=== PATIENT | female | born 1950 | race Caucasian/White ===

== ENCOUNTER → 2016-12-02 | Outpatient (CLI) | payer MEDICARE ==
[~2016-12-02] MED LIST: REGADENOSON 0.4 MG/5 ML SYRINGE IV ONE
--- NOTE | 2016-12-02 12:33 | EST ---
DATE OF SERVICE: 12/02/2016 AGE: 66Y SEX: F HT: 5'4" WT: 157 lbs. Protocol Yossi: Other: Lexiscan Cardiolite Stage: Dur. of Exercise: *Heart Rate Blood Pressure *Rest: 81 Rest: 148/78 * *Max. Achieved: 125 Maximum BP: 171/90 85% PMHR: 100% PMHR: *METS: INDICATION OF THE STUDY: Chest pain. MEDICATIONS: STRESS DATA: Pretesting physical examination showed A heart rate of 81, pressure is 148/78 mmHg. Baseline EKG showed sinus mechanism. A 0.4 mg of Lexiscan was given to the patient over 15 seconds per protocol. Max heart rate was 125 beats per minute and maximum blood pressure was 171/90 mmHg. Clinically, the patient did not have any symptoms. The EKG showed some ST changes. CONCLUSION: 1. Nondiagnostic electrocardiogram stress testing in response to Lexiscan. 2. Please follow up on the Cardiolite portion on a separate report from the radiology department.
--- NOTE | 2016-12-02 12:39 | NM ---
EXAMINATION TYPE: NM stress lexiscan cardiolite DATE OF EXAM: 12/02/2016 11:50 AM COMPARISON: NONE HISTORY: Chest pain TECHNIQUE: After the intravenous administration of 11.0 mCi Tc 99m Sestamibi - Cardiolite resting SP ECT images acquired 45 minutes post injection. The patient received 0.4mg Lexiscan, 26.6 mCi Tc 99m Sestamibi - Stress images obtained [address] injection FINDINGS: Review of stress and rest SPECT images demonstrates no distinct perfusion abnormality. Gated analysi s shows normal wall motion with an estimated left ventricular ejection fraction of 51 %. There is some dyskinesia of the covarrubias near the cardiac apex. IMPRESSION: 1. No stress-induced ischemic changes. 2. There is some dyskinesia at the cardiac apex. Greater along the inferior and septal covarrubias.
== END | disposition home or self-care (01) ==
LOC: RADNMMAIN 09:12
PROVIDERS: ATTEND Family Medicine
DX: I25.10 Atherosclerotic heart disease of native coronary artery without angina pectoris (principal); G24.9 Dystonia, unspecified
CPT/HCPCS: 93017; 78452; A9500; J2785

== ENCOUNTER → 2016-12-20 | Outpatient (CLI) | payer MEDICARE ==
--- NOTE | 2016-12-21 11:26 | ECHOF ---
Referral Reason:I10 HTN R07.89 CP MEASUREMENTS -------- HEIGHT: 162.6 cm WEIGHT: 71.2 kg BP: IVSd: 1.2 cm (0.6 - 1.1) LVIDd: 3.4 cm (3.9 - 5.3) LVPWd: 1.1 cm (0.6 - 1.1) IVSs: 1.3 cm LVIDs: 2.1 cm LVPWs: 1.4 cm Ao Diam: 3.1 cm (2.0 - 3.7) AV Cusp: 1.9 cm (1.5 - 2.6) LA Diam: 3.5 cm (2.7 - 3.8) MV EXCURSION: 15.792 mm (> 18.000) MV EF SLOPE: 88 mm/s (70 - 150) EPSS: 0.2 cm MV E Luis: 0.40 m/s MV DecT: 357 ms MV A Luis: 0.56 m/s MV E/A Ratio: 0.72 RAP: 5.00 mmHg RVSP: 17.61 mmHg FINDINGS -------- Sinus rhythm. This was a technically good study. Left ventricular wall thickness is normal. Overall left ventricular systolic function is low-normal with, an EF between 50 - 55 %. There is paradoxical/dysynergic septal motion consistent with post-operative status. The right ventricle is normal in size and function. The left atrium is normal in size. The right atrium is normal in size. Aortic valve is trileaflet and is mildly thickened. There is no evidence of aortic regurgitation. The mitral valve leaflets are mildly thickened. Mild mitral annular calcification present. Mild mitral regurgitation is present. Mild tricuspid regurgitation present. The right ventricular systolic pressure, as measured by Doppler, is 17.61mmHg. Trace/mild (physiologic) pulmonic regurgitation. The aortic root size is normal. The pericardium is normal. CONCLUSIONS -------- 1. Sinus rhythm. 2. There is no evidence of aortic regurgitation. 3. The mitral valve leaflets are mildly thickened. 4. Mild mitral annular calcification present. 5. Mild mitral regurgitation is present. 6. Mild tricuspid regurgitation present. 7. The right ventricular systolic pressure, as measured by Doppler, is 17.61mmHg. 8. Trace/mild (physiologic) pulmonic regurgitation. 9. The aortic root size is normal. 10. The pericardium is normal. 11. This was a technically good study. 12. Left ventricular wall thickness is normal. 13. Overall left ventricular systolic function is low-normal with, an EF between 50 - 55 %. 14. There is paradoxical/dysynergic septal motion consistent with post-operative status. 15. The right ventricle is normal in size and function. 16. The left atrium is normal in size. 17. The right atrium is normal in size. 18. Aortic valve is trileaflet and is mildly thickened. SHIRT TRIMMER: Geovanna Chaparro RDCS
== END | disposition home or self-care (01) ==
LOC: RADECHMAIN 14:20
PROVIDERS: ATTEND Family Medicine
DX: I08.3 Combined rheumatic disorders of mitral, aortic and tricuspid valves (principal); I37.1 Nonrheumatic pulmonary valve insufficiency
CPT/HCPCS: 93306

== ENCOUNTER 2017-03-10 15:56 | Emergency (ER) | payer MEDICARE ==
[2017-03-10 16:17] VITALS: BP 138/64; PULSE 74; RESP 18; TEMP 98.5
--- NOTE | 2017-03-10 16:57 | ED ---
Lower Extremity Injury HPI - General Chief Complaint: Extremity Injury, Lower Stated Complaint: Foot Pain Time Seen by Provider: 03/10/17 16:44 Source: patient, RN notes reviewed Mode of arrival: ambulatory Limitations: no limitations - History of Present Illness Initial Comments: 66-year-old female presents to the emergency department with a chief complaint of right foot pain. Patient states that she fell on her foot a few weeks ago. Patient states that it started to hurt over the last few days but she was up and active more so she was concerned. Patient states along the base of the first second and third digits. Patient states she has been able to ambulate. Patient denied any other injury or history of pain. Patient denies any redness or swelling. Patient states she was concerned due to the pain so she thought that she should be evaluated.Patient denies any recent fever, chills, shortness of breath, chest pain, back pain, abdominal pain, nausea vomiting, numbness or tingling, dysuria or hematuria, constipation or diarrhea, headaches or visual changes, or any other current symptoms. - Related Data Home Medications Medication Instructions Recorded Confirmed Furosemide [Lasix] 10 mg PO DAILY 04/02/16 05/29/16 Metoprolol Tartrate [Lopressor] 12.5 mg PO BID 04/02/16 05/29/16 Potassium Chloride ER [K-Dur 10] 10 meq PO BID 04/02/16 05/29/16 Pravastatin Sodium [Pravachol] 10 mg PO DAILY 04/02/16 05/29/16 Previous Rx's Medication Instructions Recorded Dexamethasone 0.75 mg PO BID #6 tab 04/02/16 Allergies Allergy/AdvReac Type Severity Reaction Status Date / Time gabapentin [From Neurontin] AdvReac Hallucinati Verified 03/10/17 16:17 ons Review of Systems ROS Statement: Those systems with pertinent positive or pertinent negative responses have been documented in the HPI. ROS Other: All systems not noted in ROS Statement are negative. Past Medical History Past Medical History: Coronary Artery Disease (CAD), Hyperlipidemia, Hypertension History of Any Multi-Drug Resistant Organisms: None Reported Past Surgical History: Cholecystectomy, Coronary Bypass/CABG Additional Past Surgical History / Comment(s): rhizotomy, head surgeries osteomas Past Psychological History: No Psychological Hx Reported Smoking Status: Former smoker Past Alcohol Use History: Occasional Past Drug Use History: None Reported General Exam - General Exam Comments Initial Comments: General: The patient is awake and alert, in no distress, and does not appear acutely ill. Neck: The neck is supple, there is no tenderness. Cardiovascular: There is a regular rate and rhythm. No murmur, rub or gallop is appreciated. Respiratory: Lungs are clear to auscultation, respirations are non-labored, breath sounds are equal. No wheezes, stridor, rales, or rhonchi. Musculoskeletal: Sensation intact with pupils. This is a regular strain. Full range of motion of right knee right ankle. Patient does have some tenderness with patient on the involved right foot into the base of first Ekman third digit. There is no deformity redness swelling. Neurological: CN II-XII intact, There are no obvious motor or sensory deficits. Coordination appears grossly intact. Speech is normal. Skin: Skin is warm and dry and no rashes or lesions are noted. Psychiatric: Normal mood and affect. Limitations: no limitations Course Vital Signs 03/10/17 16:15 Temperature 98.5 F Pulse Rate 74 Respiratory 18 Rate Blood Pressure 138/64 O2 Sat by Pulse 100 Oximetry Medical Decision Making - Medical Decision Making 66-year-old female presents for right foot pain after injury. At this time x- rays are negative. This time we discussed patient was with right foot contusion. We discussed continue to ice Motrin Tylenol. We discussed up with Dr. candace castillo. Patient states she understood all questions have been answered. She will be discharged home. - Radiology Data Radiology results: report reviewed, image reviewed Disposition Clinical Impression: Contusion of right foot Disposition: HOME SELF-CARE Condition: Stable Instructions: Foot Contusion (ED) Additional Instructions: Please use medication as discussed. Please follow up with family doctor if symptoms have not improved over the next two days. Please return to the emergency room if your symptoms increase or worsen or for any other concerns. Referrals: Yann Sena Jr, DO [Primary Care Provider] - 1-2 days Time of Disposition: 17:22
--- NOTE | 2017-03-10 17:19 | XR ---
EXAMINATION TYPE: XR foot complete RT DATE OF EXAM: 03/10/2017 5:08 PM COMPARISON: NONE HISTORY: Pain fall 2 months prior TECHNIQUE: Three-view right foot FINDINGS: No acute fractures are evident. An old fracture of the distal diaphyseal proximal phalanx f irst digit may be present. Hallux valgus deformity is present. Soft tissues appear normal. Joint spac es are preserved IMPRESSION: 1. No acute osseous abnormality.
== END 2017-03-10 17:30 | disposition home or self-care (01) ==
LOC: EC 15:56
DX: S90.31XA Contusion of right foot, initial encounter (principal); I25.10 Atherosclerotic heart disease of native coronary artery without angina pectoris; E78.5 Hyperlipidemia, unspecified; I10 Essential (primary) hypertension; Z95.1 Presence of aortocoronary bypass graft; Z88.8 Allergy status to other drugs, medicaments and biological substances; Z79.899 Other long term (current) drug therapy; Z87.891 Personal history of nicotine dependence; W19.XXXA Unspecified fall, initial encounter
CPT/HCPCS: 99283

== ENCOUNTER → 2017-11-09 | Outpatient (CLI) | payer MEDICARE ==
[2017-11-09 15:23] LABS: Blood Urea Nitrogen 12 mg/dL (7-17)
--- NOTE | 2017-11-09 17:25 | CT ---
EXAMINATION TYPE: CT abdomen pelvis w con DATE OF EXAM: 11/09/2017 COMPARISON: 10/14/2013 HISTORY: Left upper quadrant pain. CT DLP: 1418 mGycm Automated exposure control for dose reduction was used. TECHNIQUE: Helical acquisition of images was performed from the lung bases through the pelvis. CONTRAST: Performed with Oral Contrast and with IV Contrast, patient injected with 100 mL of Omnipaque 300. FINDINGS: The lung bases are clear of consolidation. There is no pleural effusion. Liver shows no focal defect. Spleen and pancreas appear normal. Bile ducts are not dilated. Gallbladder is absent. There is no adrenal mass. Kidneys show satisfactory contrast opacification. There is no hydronephrosi s. There is some enlargement of the right renal pelvis and right ureter. There is no renal atrophy. T here is no retroperitoneal adenopathy. There is no ascites. There is some nonspecific wall thickening involving the ascending colon. There is some fat density. This could relate to some colonic lipomato sis and is probably unchanged compared to old exam.. There are no dilated loops. Bladder distends smo othly. There is no sign of a pelvic mass. There are spondylotic changes in the lumbar spine. Abdomina l aorta is atheromatous. IMPRESSION: THERE IS MILD RIGHT-SIDED HYDRONEPHROSIS AND PROXIMAL HYDROURETER BUT NO OBSTRUCTING CALCULUS SEEN. N O ATROPHY. THIS IS SLIGHTLY WORSE THAN OLD CT SCAN. ATHEROSCLEROTIC VASCULAR DISEASE. NO SIGN OF ACUT E ABDOMEN AND PELVIS. I do not see a cause for left upper quadrant pain.
== END | disposition home or self-care (01) ==
LOC: RADCTMAIN 14:49
PROVIDERS: ATTEND Family Medicine
DX: N13.30 Unspecified hydronephrosis (principal); Z88.8 Allergy status to other drugs, medicaments and biological substances; Z88.5 Allergy status to narcotic agent
CPT/HCPCS: 82565; 84520; 74177; 36415; Q9967

== ENCOUNTER 2017-12-27 10:09 | Day surgery (SDC) | payer MEDICARE ==
[2017-12-25 15:21] VITALS: BMI 25.3
[~2017-12-27 10:09] MED LIST changes: +LACTATED RINGERS 1,000 ML IV SCH; -REGADENOSON 0.4 MG/5 ML SYRINGE IV ONE
[2017-12-27 11:28] VITALS: RESP 18; TEMP 97.1
[2017-12-27] MEDS ORDERED: LIDOCAINE 1% 20 ML VIAL (10MG/ML) FOR IV START INTRADERMA ONE (11:36)
[2017-12-27] MEDS ORDERED: LIDOCAINE 1% INJ 10MG/ML (20 ML MDV) ONE (11:44)
[2017-12-27] MEDS ORDERED: PROPOFOL 10 MG/ML 20 ML VIAL IV ONE (11:44)
--- NOTE | 2017-12-27 12:04 | P.PCN ---
Date of Procedure: 12/27/17 Procedure(s) Performed: Brief history: Patient is a pleasant 67-year-old white female, scheduled for an elective upper endoscopy as well as colonoscopy as a part of evaluation of nausea, vomiting and abdominal pain associated with constipation since July 2017. Recent CT of the abdomen and pelvis was unremarkable. Procedure performed: Esophagogastroduodenoscopy with biopsy Colonoscopy with snare polypectomy Preoperative diagnosis: Chronic intermittent nausea/vomiting Abdominal pain and change in bowel Anesthesia: MAC Procedure: After informed consent was obtained from the patient was brought into the endoscopy unit and IV sedation was administered by anesthesia under continuous monitoring. Initially upper endoscopy was done. The Olympus GF 160 video endoscope was inserted inserted into the mouth and esophagus intubated without any difficulty and was gradually advanced into the stomach and duodenum and carefully examined. The bulb and second part of the duodenum appeared normal. Biopsies were done from the duodenum to rule out celiac disease. The scope was then withdrawn into the stomach adequately insufflated with air and upon careful examination the antrum had mild gastritis and biopsies were done from this area. The body, cardia and fundus appeared normal. The scope was then withdrawn into the esophagus. The GE junction was located at 40 cm to the incisors. It appeared regular with no erythema erosions or ulcerations. Rest of the esophagus appeared normal. Patient tolerated the procedure well. At this time the patient continued to remain sedation. Initial digital rectal examination was normal. Olympus CF 160 video colonoscope was then inserted into the rectum and gradually advanced to the cecum without any difficulty. Careful examination was performed as the scope was gradually being withdrawn. The prep was excellent. The cecum, appeared normal. In the ascending colon there was a 7-8 mm sessile polyp removed by snare polypectomy. The rest of the ascending colon, transverse colon, descending colon, sigmoid colon and rectum appeared normal. Retroflexion was performed in the rectum andsmall internal hemorrhoidsre noted. Patient tolerated the procedure well. Impression: 1. Upper endoscopy revealed mild antral gastritis but no evidence of esophagitis or peptic ulcer disease 2. Colonoscopy revealed 7-8 mm ascending colon polyp status post snare polypectomy and small internal hemorrhoids Recommendations: Findings of this examination were discussed with the patient as well as her family. She was advised to follow with the biopsy results. If the biopsy of the polyp shows an adenoma, she can have a repeat colonoscopy in 5 years. She' ll be seen in office in 2 weeks.
[2017-12-27 12:25] VITALS: BP 146/74; PULSE 63
== END 2017-12-27 12:52 | disposition home or self-care (01) ==
LOC: ORWHC2ENDO 10:09
PROVIDERS: ATTEND Internal Medicine Gastroenterology
DX: K29.50 Unspecified chronic gastritis without bleeding (principal); D12.2 Benign neoplasm of ascending colon; K64.8 Other hemorrhoids; I10 Essential (primary) hypertension; E78.5 Hyperlipidemia, unspecified; J44.9 Chronic obstructive pulmonary disease, unspecified; Z79.1 Long term (current) use of non-steroidal anti-inflammatories (NSAID); Z79.891 Long term (current) use of opiate analgesic; Z79.899 Other long term (current) drug therapy; Z88.8 Allergy status to other drugs, medicaments and biological substances
CPT/HCPCS: 88305; 45385; 43239; J2001; J2704

== ENCOUNTER → 2018-01-05 | Outpatient (CLI) | payer MEDICARE ==
[2018-01-05 09:57] LABS: Basophils % (A) 1 %; Eosinophils # (A) 0.1 k/uL (0-0.7); Eosinophils % (A) 1 %; HCT 39.9 % (34.0-46.0); HGB 12.8 gm/dL (11.4-16.0); Lymphocytes % (A) 41 %; MCH 27.9 pg (25.0-35.0); MCHC 31.9 g/dL (31.0-37.0); MCV 87.3 fL (80.0-100.0); Mean Platelet Volume 7.7; Monocytes # (A) 0.3 k/uL (0-1.0); Monocytes % (A) 7 %; Neutrophils # (A) 2.4 k/uL (1.3-7.7); Neutrophils % (A) 48 %; Platelet Count 163 k/uL (150-450); RBC 4.58 m/uL (3.80-5.40); RDW 12.9 % (11.5-15.5)
[2018-01-05 10:15] LABS: ALT 26 U/L (9-52); AST 24 U/L (14-36); Albumin 4.1 g/dL (3.5-5.0); Alkaline Phosphatase 83 U/L (38-126); Anion Gap 7 mmol/L; Blood Urea Nitrogen 13 mg/dL (7-17); Calcium 9.7 mg/dL (8.4-10.2); Carbon Dioxide 29 mmol/L (22-30); Chloride 104 mmol/L (98-107); Glucose 97 mg/dL (74-99); Potassium 4.2 mmol/L (3.5-5.1); Sodium 140 mmol/L (137-145); Total Bilirubin 0.7 mg/dL (0.2-1.3)
== END | disposition home or self-care (01) ==
LOC: LABWHC1 09:41
PROVIDERS: ATTEND Family Medicine
DX: G47.09 Other insomnia (principal); R10.32 Left lower quadrant pain; Z79.899 Other long term (current) drug therapy
CPT/HCPCS: 36415; 80053; 84443; 85025

== ENCOUNTER 2018-05-12 13:11 | Emergency (ER) | payer MEDICARE ==
[2018-05-12 13:41] VITALS: BP 134/74; PULSE 78; RESP 18; TEMP 97.7
--- NOTE | 2018-05-12 14:22 | ED ---
General Adult HPI - General Chief complaint: Extremity Injury, Upper Stated complaint: post vaccination pain Time Seen by Provider: 05/12/18 14:05 Source: patient, RN notes reviewed Mode of arrival: ambulatory Limitations: no limitations - History of Present Illness Initial comments: This is a 67-year-old female who presents to the emergency department with chief complaint of post vaccination pain. She states that on May 08 she received the pneumococcal booster in her left upper arm. She states that 2 hours later became very firm, red and swollen. She states that since that time the swelling has gone down but the redness has spread and that the left upper arm is painful. She denies any fevers or chills, chest pain or shortness of breath, abdominal pain, nausea or vomiting, numbness or tingling. - Related Data Home Medications Medication Instructions Recorded Confirmed Furosemide [Lasix] 10 mg PO DAILY 04/02/16 12/27/17 Metoprolol Tartrate [Lopressor] 12.5 mg PO BID 04/02/16 12/27/17 Potassium Chloride ER [K-Dur 10] 10 meq PO DAILY 04/02/16 12/27/17 Albuterol Sulfate [Proair Hfa] 1 - 2 puff INHALATION Q6H PRN 03/10/17 12/27/17 Amitriptyline HCl [Elavil] 25 mg PO HS PRN 03/10/17 12/27/17 Atorvastatin [Lipitor] 20 mg PO HS 12/25/17 12/27/17 Ibuprofen [Motrin] 800 mg PO Q8H PRN 12/25/17 12/27/17 traMADol HCL [Ultram] 50 mg PO Q6HR PRN 12/25/17 12/27/17 Previous Rx's Medication Instructions Recorded Cephalexin [Keflex] 500 mg PO Q12HR #10 cap 05/12/18 Allergies Allergy/AdvReac Type Severity Reaction Status Date / Time gabapentin [From Neurontin] AdvReac Hallucinati Verified 05/12/18 13:40 ons Review of Systems ROS Statement: Those systems with pertinent positive or pertinent negative responses have been documented in the HPI. ROS Other: All systems not noted in ROS Statement are negative. Past Medical History Past Medical History: Coronary Artery Disease (CAD), GERD/Reflux, Hyperlipidemia , Hypertension, Osteoarthritis (OA) Additional Past Medical History / Comment(s): MIGRAINE HEADACHE,GLAUCOMA History of Any Multi-Drug Resistant Organisms: None Reported Past Surgical History: Cholecystectomy, Coronary Bypass/CABG, Heart Catheterization Additional Past Surgical History / Comment(s): FRONTAL SINUS SURGERY-TUMOR OF THE BONE X3 Past Anesthesia/Blood Transfusion Reactions: No Reported Reaction Additional Past Anesthesia/Blood Transfusion Reaction / Comment(s): "WOKE UP DURING SURGERY" Past Psychological History: No Psychological Hx Reported Smoking Status: Former smoker Past Alcohol Use History: None Reported Past Drug Use History: None Reported - Past Family History Mother Family Medical History: No Reported History Father Family Medical History: Cancer General Exam - General Exam Comments Initial Comments: General: Awake and alert, well-developed; in no apparent distress. HEENT: Head atraumatic, normocephalic. Pupils are equal, round and reactive to light. Extraocular movements intact. Oropharynx moist without erythema or exudate. Neck: Supple. Normal ROM. Cardiovascular: Regular rate and rhythm. No murmurs, rubs or gallops. Chest symmetrical. Pulses are 2+ equal and palpable bilaterally. Respiratory: Lungs clear to auscultation bilaterally. No wheezes, rales or rhonchi. Normal respiratory effort with no use of accessory muscles. Musculoskeletal: Normal range of motion of bilateral upper and lower extremities. Patient is ambulating normally. Sensation is intact. Skin: Mild area of erythema measuring approximately 6 cm in diameter left upper arm. This area is tender on palpation. No palpable cords. Neurological: Alert and oriented x3. CN II-XII grossly intact. Speech is fluent and answers are appropriate. No focal neuro deficits. Psychiatric: Normal mood and affect. No overt signs of depression or anxiety noted. Limitations: no limitations Course Vital Signs 05/12/18 13:39 Temperature 97.7 F Pulse Rate 78 Respiratory 18 Rate Blood Pressure 134/74 O2 Sat by Pulse 99 Oximetry Medical Decision Making - Medical Decision Making This is a 67-year-old female who presents to the emergency department with chief complaint of postvaccination pain. Patient reports pain, swelling and redness to the left upper arm after receiving a pneumococcal booster on May 08. On physical examination, there is mild erythema and tenderness to the left upper arm. Unlikely cellulitis, however patient will be started on Keflex. Vital signs are stable and she is in no acute distress. Recommend Motrin. Patient will be discharged home at this time. She is in agreement with plan and voices understanding. All questions were answered. Disposition Clinical Impression: Post-vaccination reaction Disposition: HOME SELF-CARE Condition: Good Instructions: Pneumococcal Vaccine for Adults (ED) Additional Instructions: Please take medications as prescribed. Please follow up with primary care provider within 1-2 days. Return to emergency department if symptoms should worsen or any concerns arise. Prescriptions: Cephalexin [Keflex] 500 mg PO Q12HR #10 cap Is patient prescribed a controlled substance at d/c from ED?: No Referrals: Yann Sena Jr, [Primary Care Provider] - 1-2 days Time of Disposition: 14:18
== END 2018-05-12 14:35 | disposition home or self-care (01) ==
LOC: EC 13:11
DX: T88.1XXA Other complications following immunization, not elsewhere classified, initial encounter (principal); I25.810 Atherosclerosis of coronary artery bypass graft(s) without angina pectoris; I10 Essential (primary) hypertension; E78.5 Hyperlipidemia, unspecified; Z88.8 Allergy status to other drugs, medicaments and biological substances; Z87.891 Personal history of nicotine dependence; Z95.1 Presence of aortocoronary bypass graft; Z79.899 Other long term (current) drug therapy
CPT/HCPCS: 99283

== ENCOUNTER → 2018-07-18 | Outpatient (CLI) | payer MEDICARE ==
[2018-07-18 12:02] LABS: T4, Free (Free Thyroxine) 0.96 ng/dL (0.78-2.19)
== END | disposition home or self-care (01) ==
LOC: LABWHC1 09:39
PROVIDERS: ATTEND Internal Medicine Cardiovascular Disease
DX: E78.5 Hyperlipidemia, unspecified (principal); R63.4 Abnormal weight loss
CPT/HCPCS: 36415; 80061; 84439; 84443; 84450; 84460

== ENCOUNTER → 2019-05-07 | Outpatient (CLI) | payer MEDICARE ==
[2019-05-07 18:34] LABS: ALT 32 U/L (8-44); AST 29 U/L (13-35); African American GFR (CKD) 75.6 (60.0-200.0); Alkaline Phosphatase 84 U/L (41-126); BUN/Creat Ratio 18.89 Ratio (12.00-20.00); Bilirubin, Conjugated <0.20 mg/dL (0.20-0.40); Calcium 9.8 mg/dL (8.7-10.3); Carbon Dioxide 27.8 mmol/L (21.6-31.8); Chloride 106 mmol/L (96-109); Cholesterol 242 mg/dL (0-200); Globulin 2.2 g/dL (1.6-3.3); Glucose 101 mg/dL (70-110); LDL Cholesterol,Calculated 146.6 mg/dL (0.0-131.0); Potassium 4.5 mmol/L (3.5-5.5); Sodium 142 mmol/L (135-145); Total Bilirubin 0.4 mg/dL (0.2-1.2); Total Protein 6.6 g/dL (6.2-8.2)
== END | disposition home or self-care (01) ==
LOC: LABWHC1 12:29
PROVIDERS: ATTEND Internal Medicine Cardiovascular Disease
DX: I10 Essential (primary) hypertension (principal); I25.10 Atherosclerotic heart disease of native coronary artery without angina pectoris; E78.5 Hyperlipidemia, unspecified
CPT/HCPCS: 36415; 80048; 80061; 80076

== ENCOUNTER 2020-01-01 15:03 | Emergency (ER) | payer MEDICARE ==
[2020-01-01] MEDS ORDERED: SODIUM CHLORIDE 0.9% 1,000 ML IV STA (16:21)
[2020-01-01 16:51] LABS: Basophils # (A) 0.1 k/uL (0-0.2); Basophils % (A) 1 %; Eosinophils # (A) 0.1 k/uL (0-0.7); Eosinophils % (A) 1 %; HCT 43.7 % (34.0-46.0); Lymphocytes # (A) 3.1 k/uL (1.0-4.8); Lymphocytes % (A) 44 %; MCH 28.3 pg (25.0-35.0); MCV 88.7 fL (80.0-100.0); Mean Platelet Volume 7.6; Monocytes # (A) 0.5 k/uL (0-1.0); Monocytes % (A) 7 %; Neutrophils # (A) 3.1 k/uL (1.3-7.7); Neutrophils % (A) 45 %; Platelet Count 161 k/uL (150-450); RBC 4.93 m/uL (3.80-5.40); RDW 12.6 % (11.5-15.5)
[2020-01-01 16:53] LABS: Albumin 4.6 g/dL (3.5-5.0); Calcium 9.7 mg/dL (8.4-10.2); Potassium 4.1 mmol/L (3.5-5.1); Total Bilirubin 0.4 mg/dL (0.2-1.3); Total Protein 7.6 g/dL (6.3-8.2)
--- NOTE | 2020-01-01 16:55 | ED ---
Extremity Problem HPI - General Source: patient Mode of arrival: ambulatory Limitations: no limitations <Morteza Merritt - Last Filed: 01/01/20 20:24> <Tabatha Tao - Last Filed: 01/06/20 15:45> - General Chief complaint: Extremity Problem,Nontraumatic Stated complaint: joint inflammation Time Seen by Provider: 01/01/20 16:12 - History of Present Illness Initial comments: Patient is 69-year-old female presenting to the emergency department with a chief complaint of joint pain. States her symptoms began about 2 weeks when she developed polyarthralgias in her wrists, elbows, shoulders, knees and ankles. S tates that she feels somewhat stiff in the morning and the pain gradually goes away throughout the day but he reappears at night. States she took ibuprofen with some improvement symptoms. Denies any swelling of the joints, difference in temperature or skin discoloration. Denies any nodules on the hands or fingers. Also reports some shortness of breath but for over one month. Does report some dyspnea on exertion but reports any chest pain. States she had a quadruple bypass 15 years ago that her joint pain is related to the bypass. States that she "wanted to get checked out". She does live in [facility] and is scheduled with primary care but is not able to get in for another 5 days. Denies any tick bites. Denies fevers or chills. Denies history of rheumatoid arthritis. Denies any skin discoloration around the joints. (Morteza Merritt) - Related Data Home Medications Medication Instructions Recorded Confirmed Furosemide [Lasix] 10 mg PO DAILY 04/02/16 12/27/17 Metoprolol Tartrate [Lopressor] 12.5 mg PO BID 04/02/16 12/27/17 Potassium Chloride ER [K-Dur 10] 10 meq PO DAILY 04/02/16 12/27/17 Albuterol Sulfate [Proair Hfa] 1 - 2 puff INHALATION Q6H PRN 03/10/17 12/27/17 Amitriptyline HCl [Elavil] 25 mg PO HS PRN 03/10/17 12/27/17 Atorvastatin [Lipitor] 20 mg PO HS 12/25/17 12/27/17 Ibuprofen [Motrin] 800 mg PO Q8H PRN 12/25/17 12/27/17 traMADol HCL [Ultram] 50 mg PO Q6HR PRN 12/25/17 12/27/17 Previous Rx's Medication Instructions Recorded Cephalexin [Keflex] 500 mg PO Q12HR #10 cap 05/12/18 Allergies Allergy/AdvReac Type Severity Reaction Status Date / Time gabapentin [From Neurontin] AdvReac Hallucinati Verified 05/12/18 13:40 ons Review of Systems ROS Other: All systems not noted in ROS Statement are negative. <Morteza Merritt - Last Filed: 01/01/20 20:24> ROS Other: All systems not noted in ROS Statement are negative. <Tabatha Tao - Last Filed: 01/06/20 15:45> ROS Statement: Those systems with pertinent positive or pertinent negative responses have been documented in the HPI. Past Medical History Past Medical History: Coronary Artery Disease (CAD), GERD/Reflux, Hyperlipidemia, Hypertension, Osteoarthritis (OA) Additional Past Medical History / Comment(s): MIGRAINE HEADACHE,GLAUCOMA History of Any Multi-Drug Resistant Organisms: None Reported Past Surgical History: Cholecystectomy, Coronary Bypass/CABG, Heart Catheterization Additional Past Surgical History / Comment(s): FRONTAL SINUS SURGERY-TUMOR OF THE BONE X3 Past Anesthesia/Blood Transfusion Reactions: No Reported Reaction Additional Past Anesthesia/Blood Transfusion Reaction / Comment(s): "WOKE UP DURING SURGERY" Past Psychological History: No Psychological Hx Reported Smoking Status: Former smoker Past Alcohol Use History: None Reported Past Drug Use History: None Reported - Past Family History Mother Family Medical History: No Reported History Father Family Medical History: Cancer <Morteza Merritt - Last Filed: 01/01/20 20:24> General Exam Limitations: no limitations General appearance: alert, in no apparent distress Head exam: Present: atraumatic, normocephalic, normal inspection Eye exam: Present: normal appearance, PERRL, EOMI Pupils: Present: normal accommodation ENT exam: Present: normal exam Neck exam: Present: normal inspection, full ROM. Absent: lymphadenopathy Respiratory exam: Present: normal lung sounds bilaterally. Absent: respiratory distress, wheezes, rales Cardiovascular Exam: Present: regular rate, normal rhythm, normal heart sounds Extremities exam: Present: normal inspection, full ROM, normal capillary refill, other (+2 ulnar and radial pulses bilaterally. No swelling in any of the finger joints.). Absent: tenderness, pedal edema, joint swelling, calf tenderness (Negative Homans bilaterally.) Back exam: Present: normal inspection, full ROM Neurological exam: Present: alert, oriented X3 Psychiatric exam: Present: normal affect, normal mood Skin exam: Present: warm, dry, intact, normal color <Morteza Merritt - Last Filed: 01/01/20 20:24> Course Vital Signs 01/01/20 01/01/20 15:29 20:50 Temperature 98.3 F 97.8 F Pulse Rate 71 60 Respiratory 19 15 Rate Blood Pressure 129/81 141/70 O2 Sat by Pulse 97 97 Oximetry Medical Decision Making - Lab Data Result diagrams: 01/01/20 16:35 01/01/20 16:35 <Morteza Merritt - Last Filed: 01/01/20 20:24> - Lab Data Result diagrams: 01/01/20 16:35 01/01/20 16:35 <Tabatha Tao - Last Filed: 01/06/20 15:45> - Medical Decision Making Patient is 69-year-old female presenting to emergency Department with chief complaint of joint pain and shortness of breath. Patient appears to have polyarthralgias in the wrist, shoulders, elbow, knees and ankles. She does report morning stiffness that appears to improve throughout the day. The symptoms suggest possible rheumatoid arthritis. Patient is also complaining of shortness of breath for over a month. With dyspnea on exertion. No chest pain cough hemoptysis one sided leg swelling. Initial troponin negative. EKG shows sinus bradycardia with no signs of a PE. Patient does have elevated d-dimer. CT angios of chest shows no signs of a pulmonary embolism.CBC CMP are unremarkable. Patient is scheduled to see her primary care within a week. Return parameters were thoroughly discussed with patient was understanding and agreeable. Case discussed with physician. (Morteza Merritt) I was available for consultation in the emergency department. The history and physical exam were done by the midlevel provider. I was consulted for this patients care. I reviewed the case with the midlevel provider and based on their presentation of the patient, I agree with the assessment, medical decision making and plan of care as documented. Chart was dictated using [employer] dictation software. Attempts were made to correct any dictation errors however some typographical errors may persist. (Tabatha Tao) - Lab Data Lab Results 01/01/20 01/01/20 01/01/20 Range/Units 16:35 16:35 16:35 WBC 7.0 (3.8-10.6) k/uL RBC 4.93 (3.80-5.40) m/uL Hgb 14.0 (11.4-16.0) gm/dL Hct 43.7 (34.0-46.0) % MCV 88.7 (80.0-100.0) fL MCH 28.3 (25.0-35.0) pg MCHC 32.0 (31.0-37.0) g/dL RDW 12.6 (11.5-15.5) % Plt Count 161 (150-450) k/uL Neutrophils % 45 % Lymphocytes % 44 % Monocytes % 7 % Eosinophils % 1 % Basophils % 1 % Neutrophils # 3.1 (1.3-7.7) k/uL Lymphocytes # 3.1 (1.0-4.8) k/uL Monocytes # 0.5 (0-1.0) k/uL Eosinophils # 0.1 (0-0.7) k/uL Basophils # 0.1 (0-0.2) k/uL PT 10.4 (9.0-12.0) sec INR 1.0 (<1.2) APTT 23.1 (22.0-30.0) sec D-Dimer (<0.60) mg/L FEU Sodium 140 (137-145) mmol/L Potassium 4.1 (3.5-5.1) mmol/L Chloride 105 (98-107) mmol/L Carbon Dioxide 30 (22-30) mmol/L Anion Gap 5 mmol/L BUN 19 H (7-17) mg/dL Creatinine 0.80 (0.52-1.04) mg/dL Est GFR (CKD-EPI)AfAm 87 (>60 ml/min/1.73 sqM) Est GFR (CKD-EPI)NonAf 75 (>60 ml/min/1.73 sqM) Glucose 79 (74-99) mg/dL Calcium 9.7 (8.4-10.2) mg/dL Total Bilirubin 0.4 (0.2-1.3) mg/dL AST 38 H (14-36) U/L ALT 29 (4-34) U/L Alkaline Phosphatase 75 (38-126) U/L Troponin I (0.000-0.034) ng/mL Total Protein 7.6 (6.3-8.2) g/dL Albumin 4.6 (3.5-5.0) g/dL 01/01/20 01/01/20 Range/Units 16:35 16:35 WBC (3.8-10.6) k/uL RBC (3.80-5.40) m/uL Hgb (11.4-16.0) gm/dL Hct (34.0-46.0) % MCV (80.0-100.0) fL MCH (25.0-35.0) pg MCHC (31.0-37.0) g/dL RDW (11.5-15.5) % Plt Count (150-450) k/uL Neutrophils % % Lymphocytes % % Monocytes % % Eosinophils % % Basophils % % Neutrophils # (1.3-7.7) k/uL Lymphocytes # (1.0-4.8) k/uL Monocytes # (0-1.0) k/uL Eosinophils # (0-0.7) k/uL Basophils # (0-0.2) k/uL PT (9.0-12.0) sec INR (<1.2) APTT (22.0-30.0) sec D-Dimer 0.98 H (<0.60) mg/L FEU Sodium (137-145) mmol/L Potassium (3.5-5.1) mmol/L Chloride (98-107) mmol/L Carbon Dioxide (22-30) mmol/L Anion Gap mmol/L BUN (7-17) mg/dL Creatinine (0.52-1.04) mg/dL Est GFR (CKD-EPI)AfAm (>60 ml/min/1.73 sqM) Est GFR (CKD-EPI)NonAf (>60 ml/min/1.73 sqM) Glucose (74-99) mg/dL Calcium (8.4-10.2) mg/dL Total Bilirubin (0.2-1.3) mg/dL AST (14-36) U/L ALT (4-34) U/L Alkaline Phosphatase (38-126) U/L Troponin I <0.012 (0.000-0.034) ng/mL Total Protein (6.3-8.2) g/dL Albumin (3.5-5.0) g/dL - EKG Data EKG Comments: Sinus bradycardia, no ST changes. Which revealed a 52, TX 156, QRS 82, QTC 403. (Morteza Merritt) Disposition Is patient prescribed a controlled substance at d/c from ED?: No Time of Disposition: 20:23 <Morteza Merritt - Last Filed: 01/01/20 20:24> <Tabatha Tao - Last Filed: 01/06/20 15:45> Clinical Impression: Polyarthralgia, Shortness of breath Disposition: HOME SELF-CARE Condition: Stable Instructions (If sedation given, give patient instructions): Rheumatoid Arthr itis (ED) Additional Instructions: Alternate between Tylenol and Motrin for pain control. Continue to see her primary care. Return to emergency department if symptoms worsen. Referrals: Yann Sena Jr, [Primary Care Provider] - 1-2 days
[2020-01-01 16:56] LABS: Partial Thromboplastin Time 23.1 sec (22.0-30.0); Prothrombin Time 10.4 sec (9.0-12.0)
--- NOTE | 2020-01-01 17:02 | XR ---
EXAMINATION TYPE: XR chest 2V DATE OF EXAM: 01/01/2020 COMPARISON: Prior chest x-ray 10/24/2012 HISTORY: Difficulty breathing, shortness of breath TECHNIQUE: Frontal and lateral views of the chest are obtained. FINDINGS: Patient is post median sternotomy. Patient is rotated. There is no focal air space opacity, pleural effusion, or pneumothorax seen. The cardiac silhouette size is within normal limits. The osseous structures are intact. IMPRESSION: No acute cardiopulmonary process.
--- NOTE | 2020-01-01 19:31 | CT ---
EXAMINATION TYPE: CT chest angio for PE DATE OF EXAM: 01/01/2020 COMPARISON: HISTORY: difficulty breathing for [address] DLP: 304 mGycm Automated exposure control for dose reduction was used. CONTRAST: CT Chest for pulmonary embolism performed with with IV Contrast, patient injected with 100 mL of Isov ue 370. Three-dimensional reconstructions performed on an alternate workstation. FINDINGS: LUNGS: The lungs are grossly clear, there is no concerning parenchymal mass or nodule identified. T here is no pleural effusion or pneumothorax seen. The tracheobronchial tree is patent. MEDIASTINUM: There is satisfactory enhancement of the pulmonary artery and its branches, there is no CT evidence for pulmonary embolism. There are no greater than 1 cm hilar or mediastinal lymph nodes. No pericardial effusion is seen. Patient is post median sternotomy. There are dense coronary joshua ry calcifications. Small hiatal hernia is present. Reflux of contrast material into the central hepat ic veins and inferior vena cava, correlate for possible right heart failure. AORTA: No additional significant abnormality is seen. OTHER: Stomach shows wall thickening which could be due to lack of distention, difficult to exclude a mucosal lesion. Patient is post cholecystectomy. IMPRESSION: No evident pulmonary embolus. Additional findings above.
[2020-01-01 20:52] VITALS: BP 141/70; PULSE 60; RESP 15; TEMP 97.8
== END 2020-01-01 20:52 | disposition home or self-care (01) ==
LOC: EC 15:03
DX: M25.532 Pain in left wrist (principal); M25.531 Pain in right wrist; M25.522 Pain in left elbow; M25.521 Pain in right elbow; M25.512 Pain in left shoulder; M25.511 Pain in right shoulder; M25.561 Pain in right knee; M25.562 Pain in left knee; M25.572 Pain in left ankle and joints of left foot; M25.571 Pain in right ankle and joints of right foot; R06.02 Shortness of breath; R06.09 Other forms of dyspnea; R79.1 Abnormal coagulation profile; I25.10 Atherosclerotic heart disease of native coronary artery without angina pectoris; I10 Essential (primary) hypertension; E78.5 Hyperlipidemia, unspecified; M19.90 Unspecified osteoarthritis, unspecified site; Z79.899 Other long term (current) drug therapy; Z88.8 Allergy status to other drugs, medicaments and biological substances; Z95.1 Presence of aortocoronary bypass graft
CPT/HCPCS: 36415; 93005; 85379; 80053; 84484; 85025; 85610; 85730; 71046; 71275; 99284; 96360; 96361 ×3; Q9967

== ENCOUNTER → 2020-01-10 | Outpatient (CLI) | payer MEDICARE ==
[2020-01-10 23:09] LABS: C Reactive Protein <0.4 mg/dL (0.0-0.8); Rheumatoid Factor, Qnt 7 IU/mL (0-15)
== END | disposition home or self-care (01) ==
LOC: LABWHC1 16:25
PROVIDERS: ATTEND Family Medicine
DX: M25.50 Pain in unspecified joint (principal)
CPT/HCPCS: 36415; 85652; 86140; 86431

== ENCOUNTER 2020-02-15 14:05 | Emergency (ER) | payer MEDICARE ==
[2020-02-15 14:12] VITALS: RESP 18
--- NOTE | 2020-02-15 15:52 | ED ---
Eye Problem HPI - General Chief complaint: Eye Problems Stated complaint: RT eye issues Time Seen by Provider: 02/15/20 14:25 Source: patient Mode of arrival: ambulatory Limitations: no limitations - History of Present Illness Initial comments: Patient is 69-year-old female presenting to emergency Department with complaints of floaters in her right eye 2 days. Patient states she noticed small floaters in her right eye yesterday as well as some mild click flashes of light in her peripheral vision on the right side. Patient states her symptoms resolved. Then this morning the floaters have returned. She denies having any eye pain just some very mild pressure on the outside. She does have history of cataract surgery. She did try prednisone drops at home which did help with her symptom. She denies any trauma to the eye, lightheadedness, dizziness, blurry vision. She has no other complaints at this time. Upon arrival to the ER her vital stable. - Related Data Home Medications Medication Instructions Recorded Confirmed Furosemide [Lasix] 10 mg PO DAILY 04/02/16 12/27/17 Metoprolol Tartrate [Lopressor] 12.5 mg PO BID 04/02/16 12/27/17 Potassium Chloride ER [K-Dur 10] 10 meq PO DAILY 04/02/16 12/27/17 Albuterol Sulfate [Proair Hfa] 1 - 2 puff INHALATION Q6H PRN 03/10/17 12/27/17 Amitriptyline HCl [Elavil] 25 mg PO HS PRN 03/10/17 12/27/17 Atorvastatin [Lipitor] 20 mg PO HS 12/25/17 12/27/17 Ibuprofen [Motrin] 800 mg PO Q8H PRN 12/25/17 12/27/17 traMADol HCL [Ultram] 50 mg PO Q6HR PRN 12/25/17 12/27/17 Previous Rx's Medication Instructions Recorded Cephalexin [Keflex] 500 mg PO Q12HR #10 cap 05/12/18 Allergies Allergy/AdvReac Type Severity Reaction Status Date / Time gabapentin [From Neurontin] AdvReac Hallucinati Verified 02/15/20 14:12 ons Review of Systems ROS Statement: Those systems with pertinent positive or pertinent negative responses have been documented in the HPI. ROS Other: All systems not noted in ROS Statement are negative. Past Medical History Past Medical History: Coronary Artery Disease (CAD), COPD, GERD/Reflux, Hyperlipidemia, Hypertension, Osteoarthritis (OA) Additional Past Medical History / Comment(s): MIGRAINE HEADACHE,GLAUCOMA History of Any Multi-Drug Resistant Organisms: None Reported Past Surgical History: Cholecystectomy, Coronary Bypass/CABG, Heart Catheterization Additional Past Surgical History / Comment(s): FRONTAL SINUS SURGERY-TUMOR OF THE BONE X3 Past Anesthesia/Blood Transfusion Reactions: No Reported Reaction Additional Past Anesthesia/Blood Transfusion Reaction / Comment(s): "WOKE UP D URING SURGERY" Past Psychological History: No Psychological Hx Reported Smoking Status: Former smoker Past Alcohol Use History: None Reported Past Drug Use History: None Reported - Past Family History Mother Family Medical History: No Reported History Father Family Medical History: Cancer General Exam - General Exam Comments Initial Comments: GENERAL: Well-appearing, well-nourished and in no acute distress. HEAD: Atraumatic, normocephalic. EYES: Pupils equal round and reactive to light, extraocular movements intact, sclera anicteric, conjunctiva are normal. Bilateral eye pressure of 18. ENT: TMs normal, nares patent, oropharynx clear without exudates. Moist mucous membranes. NECK: Normal range of motion, supple without lymphadenopathy or JVD. LUNGS: Breath sounds clear to auscultation bilaterally and equal. No wheezes rales or rhonchi. HEART: Regular rate and rhythm without murmurs, rubs or gallops. ABDOMEN: Soft, nontender, normoactive bowel sounds. No guarding, no rebound. No masses appreciated. : Deferred EXTREMITIES: Normal range of motion, no pitting or edema. No clubbing or cyanosis. NEUROLOGICAL: Cranial nerves II through XII grossly intact. Normal speech, normal gait. PSYCH: Normal mood, normal affect. SKIN: Warm, Dry, normal turgor, no rashes or lesions noted. Limitations: no limitations Course Vital Signs 02/15/20 02/15/20 14:08 16:01 Temperature 98.1 F 98.0 F Pulse Rate 72 70 Respiratory 18 18 Rate Blood Pressure 140/84 133/78 O2 Sat by Pulse 97 98 Oximetry Medical Decision Making - Medical Decision Making Patient is 69-year-old female presenting with floaters of her right thigh 2 days. Patient has history of cataract surgery. No trauma or injuries to her eye. Patient's exam today is unremarkable, visual acuity is normal, bilateral eye pressure is normal. I did discuss case with on-call measurement superintendent Dr. Isaac who will see the patient first thing Monday morning at 10:30am. He is okay with patient being discharge. Strict return parameters were discussed with the patient she verbalized understanding. Disposition Clinical Impression: Floaters in visual field Disposition: HOME SELF-CARE Condition: Stable Instructions (If sedation given, give patient instructions): Visual Floaters (ED) Additional Instructions: Please return to the Emergency Department if symptoms worsen or any other concerns. Follow-up with measurement superintendent, Dr. Isaac as discussed on Monday at 10:30 AM. Please wear mask into the office. Is patient prescribed a controlled substance at d/c from ED?: No Referrals: Yann Sena Jr, DO [Primary Care Provider] - 1-2 days Bj Isaac MD [STAFF PHYSICIAN] - 1-2 days
[2020-02-15 16:02] VITALS: BP 133/78; PULSE 70; TEMP 98
== END 2020-02-15 16:02 | disposition home or self-care (01) ==
LOC: EC 14:05
DX: H43.391 Other vitreous opacities, right eye (principal); I25.10 Atherosclerotic heart disease of native coronary artery without angina pectoris; J44.9 Chronic obstructive pulmonary disease, unspecified; I10 Essential (primary) hypertension; E78.5 Hyperlipidemia, unspecified; Z87.891 Personal history of nicotine dependence; Z98.49 Cataract extraction status, unspecified eye; Z95.1 Presence of aortocoronary bypass graft; Z79.899 Other long term (current) drug therapy; Z88.8 Allergy status to other drugs, medicaments and biological substances
CPT/HCPCS: 99283

== ENCOUNTER → 2020-07-21 | Outpatient (CLI) | payer MEDICARE ==
[2020-07-21 16:17] LABS: HCT 42.9 % (34.0-46.0); HGB 13.5 gm/dL (11.4-16.0); MCH 27.6 pg (25.0-35.0); MCHC 31.4 g/dL (31.0-37.0); Mean Platelet Volume 7.6; Platelet Count 198 k/uL (150-450); RBC 4.88 m/uL (3.80-5.40); RDW 12.8 % (11.5-15.5); WBC 7.7 k/uL (3.8-10.6)
[2020-07-21 16:25] LABS: African American GFR (CKD) >90 (>60 ml/min/1.73 sqM); Anion Gap 6 mmol/L; Blood Urea Nitrogen 8 mg/dL (7-17); Carbon Dioxide 29 mmol/L (22-30); Chloride 104 mmol/L (98-107); Magnesium 2.1 mg/dL (1.6-2.3); Non-African American GFR(CKD) 82 (>60 ml/min/1.73 sqM); Potassium 3.9 mmol/L (3.5-5.1); Sodium 139 mmol/L (137-145)
== END | disposition home or self-care (01) ==
LOC: LABWHC1 15:34
PROVIDERS: ATTEND Internal Medicine Cardiovascular Disease
DX: Z01.818 Encounter for other preprocedural examination (principal); I25.10 Atherosclerotic heart disease of native coronary artery without angina pectoris
CPT/HCPCS: 36415; 80051; 82565; 83735; 84520; 85027

== ENCOUNTER 2020-07-30 07:53 | Day surgery (SDC) | payer MEDICARE ==
[~2020-07-30 07:53] MED LIST changes: +ALPRAZolam 0.25 MG TAB PO PRN; +ALPRAZolam 0.5 MG TAB PO PRN; +ASPIRIN 325 MG TAB PO STA; +ATORVASTATIN 80 MG TAB PO STA; -LACTATED RINGERS 1,000 ML IV SCH; +NITROGLYCERIN SL TABS 0.4 MG TAB SUBLINGUAL PRN; +SODIUM CHLORIDE 0.9% 1,000 ML in EMPTY BAG 1 BAG IV ONE
[2020-07-30] MEDS ORDERED: fentaNYL (PF) 50 MCG/ML 2 ML AMP ONE (08:52)
[2020-07-30] MEDS: MIDAZOLAM 2 MG/2 ML VIAL IV ONE ×2 (08:57→09:24)
[2020-07-30] MEDS ORDERED: fentaNYL (PF) 50 MCG/ML 2 ML AMP IV ONE (08:57)
[2020-07-30] MEDS ORDERED: LIDOCAINE 1% INJ 10MG/ML (20 ML MDV) ONE (08:58)
[2020-07-30] MEDS ORDERED: LIDOCAINE 1% INJ 10MG/ML (20 ML MDV) SQ ONE (08:59)
[2020-07-30] MEDS ORDERED: BIVALIRUDIN BOLUS 250 MG/50 ML IV ONE (09:31)
[2020-07-30] MEDS ORDERED: BIVALIRUDIN 250 MG in SODIUM CHLORIDE 0.9% 50 ML IV ONE (09:33)
[2020-07-30] MEDS ORDERED: CLOPIDOGREL 75 MG TAB PO ONE (09:33)
[2020-07-30] MEDS ORDERED: CLOPIDOGREL 75 MG TAB ONE (09:34)
--- NOTE | 2020-07-30 09:36 | P.CARDCATH ---
Date of Procedure: 07/30/20 Preoperative Diagnosis: Exertional chest pain and shortness of breath. History of coronary bypass surgery Postoperative Diagnosis: Critical lesion involving the diagonal branch beyond the insertion. Intermediate disease involving the right patent FOOTE graft to the LAD and vein graft. Circumflex Procedure(s) Performed: Left heart catheterization without left ventriculography Description of Procedure: HISTORY: This is a 70-year-old female with history of ischemic heart disease with previous bypass surgery with the FOOTE graft to the LAD, vein graft to the diagonal, 2 OM branch and also right coronary artery done about 15 years ago. Patient recently came with complaints of recurrent chest pain and shortness of breath with exertion. Patient had a nuclear stress test which was not diagnostic for ischemia. However, patient continued to have symptoms and wanted to proceed with cardiac cath for definitive diagnosis. CONSENT:I have discussed the risks, benefits and alternative therapies for the above-mentioned procedure and for both sedation/analgesia as well as necessary blood product administration, if indicated, as they pertain to this patient. The patient has indicated understanding and acceptance of the risks and procedures discussed. PROCEDURE: Patient was brought to the lab in a fasting state. Patient was given some IV sedation. The right groin is infiltrated with lidocaine and right femoral artery was entered using Seldinger technique. A 6-Albanian catheter was left in place and selective coronary arteriography was performed. Patient tolerated the procedure well. Patient went on to have stent placement of the diagonal branch through the graft. Conscious Sedation: Versed 2mg Fentanyl 50 g Duration 22minutes HEMODYNAMICS: The aortic pressure is 140/70. Left ventricular end-diastolic pressure is about 5-10. There was no gradient across the aortic valve SELECTIVE CORONARY ARTERIOGRAPHY: LEFT MAIN:. Near totally occluded with scant antegrade flow THE LEFT ANTERIOR DESCENDING CORONARY ARTERY: Totally occluded in the proximal portion THE LEFT CIRCUMFLEX AND IS CORONARY ARTERY:. Totally occluded THE RIGHT CORONARY ARTERY:. This is a moderate caliber vessel with diffuse disease with about 40-50% stenosis in midportion. THE FOOTE GRAFT TO THE LAD: This is patent at the proximal and distal anastomosis and also the body. The LAD beyond the insertion site is free of any significant occlusive disease but small in caliber. THE VEIN GRAFT TO THE DIAGONAL: This is patent at the proximal and distal anastomosis. Beyond the distal anastomosis, there is about 90% stenosis involving the diagonal. The vein graft to the OM BRANCH: This is patent throughout its length and proximal and distal anastomosis. The OM branches free of occlusive disease, beyond the insertion. LEFT VENTRICULOGRAPHY: Not performed FINAL IMPRESSION:. Critical lesion involving the diagonal beyond the insertion site of the graft. The FOOTE graft to the LAD and vein graft to the circumflex are patent. The right coronary artery has intermittent disease in the midportion. The left main is totally occluded PLAN: Proceed with stent placement of the diagonal which is being done by Dr. Ceja PROGNOSIS: Guarded
[2020-07-30] MEDS ORDERED: NITROGLYCERIN 1000MCG/10ML SYRINGE INTRACORON ONE (09:37)
[2020-07-30] MEDS ORDERED: IOPAMIDOL-370 125ML BTL INJ ONE (09:37)
[2020-07-30] MEDS ORDERED: ATROPINE SULFATE 0.1 MG/ML 10ML SYRINGE IV PRN (09:41)
[2020-07-30] MEDS ORDERED: traMADol 50 MG TAB PO PRN (09:41)
[2020-07-30] MEDS ORDERED: IBUPROFEN 800 MG TAB PO PRN (09:41)
[2020-07-30] MEDS ORDERED: MAG HYDROX/AL HYDROX/SIMETH 30 ML CUP PO PRN (09:41)
[2020-07-30] MEDS ORDERED: RX INFO: IV CONTRAST WAS GIVEN 1 EACH MISC MISCELLANE PRN (09:41)
[2020-07-30] MEDS ORDERED: NITROGLYCERIN SL TABS 0.4 MG TAB SUBLINGUAL PRN (09:41)
[2020-07-30] MEDS ORDERED: ZOLPIDEM 5 MG TAB PO PRN (09:41)
[2020-07-30] MEDS ORDERED: SODIUM CHLORIDE 0.9% 1,000 ML IV SCH (09:45)
[2020-07-30] MEDS ORDERED: HYDROmorphone 0.5 MG/0.5 ML SYRINGE IVP PRN (10:02)
--- NOTE | 2020-07-30 10:33 | PTCA ---
PERCUTANEOUSTRANS CORORONARY ANGIOGRAPHY DATE OF SERVICE: 07/30/2020 PERFORMING PHYSICIAN: Dave Cooper MD. PROCEDURE PERFORMED: Successful stenting of the distal anastomosis of SVG to the diagonal branch, using 2.0 x 8 mm [place] drug-eluting stent with an excellent angiographic results and reduction of stenosis from 80% to 0%. INDICATION: This is a 70-year-old female patient who sees Dr. Torres in the office on a regular basis, who was experiencing symptoms of chest pain with exertion concerning for angina. Because of that. Because of that, a heart catheterization was advised. The heart catheterization revealed severe disease involving the SVG to the diagonal. because of that, PCI was advised. APPROACH: Right common femoral artery. COMPLICATION: None. LEVEL OF SEDATION: Moderate with sedation length of 11 minutes. PROCEDURE DESCRIPTION: 1. Please refer to the diagnostic heart catheterization that was performed by Dr. Torres. Anticoagulation was initiated using Angiomax. Subsequently, I did engage the SVG using an LCD guide. I did wire it using a run-through wire. After that, I performed direct stenting of the lesion using 2.0 x 8 mm [place] drug-eluting stent where the stent was positioned under fluoroscopy guidance and deployed under its nominal pressure. The following angiogram showed good angiographic results and the procedure was completed without any complication. POSTPROCEDURE MANAGEMENT: 1. Dual anti-platelet therapy. 2. Risk factor modifications. 3. Follow up with the patient. MMODL / IJN: [id number] /
[2020-07-30 13:09] VITALS: RESP 18
[2020-07-30 13:54] VITALS: BMI 27.1
[2020-07-30] MEDS: ONDANSETRON 4 MG TAB PO PRN (19:14)
[2020-07-30] MEDS ORDERED: ATORVASTATIN 80 MG TAB PO SCH (21:00)
[2020-07-30] MEDS: METOPROLOL TARTRATE 12.5 MG TAB PO SCH (22:08)
[2020-07-31 01:35] VITALS: TEMP 97.8
[2020-07-31 05:29] VITALS: PULSE 66
[2020-07-31 07:56] LABS: Basophils % (A) 1 %; Eosinophils # (A) 0.1 k/uL (0-0.7); Eosinophils % (A) 2 %; HCT 39.1 % (34.0-46.0); HGB 12.7 gm/dL (11.4-16.0); Lymphocytes # (A) 2.2 k/uL (1.0-4.8); Lymphocytes % (A) 46 %; MCH 29.5 pg (25.0-35.0); MCHC 32.6 g/dL (31.0-37.0); MCV 90.3 fL (80.0-100.0); Mean Platelet Volume 7.4; Monocytes # (A) 0.3 k/uL (0-1.0); Monocytes % (A) 7 %; Neutrophils % (A) 43 %; Platelet Count 137 k/uL (150-450); RBC 4.33 m/uL (3.80-5.40); RDW 12.7 % (11.5-15.5); WBC 4.7 k/uL (3.8-10.6)
--- NOTE | 2020-07-31 08:02 | P.DS ---
Providers Date of admission: 07/30/2020 Attending physician: Yamilet Torres Consults: 07/30/20 09:41 Consult Physician Routine Consulting Provider: [facility] Consult Reason/Comments: Post Interventional patient Do you want consulting provider notified?: Already Contacted Primary care physician: Yann Sena - Discharge Diagnosis(es) (1) CAD (coronary artery disease), [place] coronary artery Current Visit: Yes Status: Acute (2) S/P coronary artery stent placement Current Visit: Yes Status: Acute (3) History of coronary artery bypass graft Current Visit: Yes Status: Acute (4) Hypercholesterolemia Current Visit: Yes Status: Acute Hospital Course: This is 70-year-old female with history of ischemic heart disease and previous bypass surgery was evaluated by cardiac catheterization because of ongoing exertional shortness of breath and tightness. She was found to have a critical lesion in the diagonal branch beyond the insertion site. Patient has sex we'll stent placement yesterday. Overnight patient had a mild nausea which was relieved with show from. No complaints of any chest pain or shortness of breath. Patient is tolerating activity. The groin is soft without any hematoma. Lungs are clear. Heart is regular. Patient is being discharged home. Continue home medications. She'll be on Plavix 75 mg and also atorvastatin 80 mg. Activity as tolerated. Follow-up in the office in one week Plan - Discharge Summary Discharge Rx Participant: No New Discharge Prescriptions: New Clopidogrel [Plavix] 75 mg PO DAILY #90 tab Atorvastatin [Lipitor] 80 mg PO HS #30 tab Continue Potassium Chloride ER [K-Dur 10] 10 meq PO DAILY Metoprolol Tartrate [Lopressor] 12.5 mg PO BID Furosemide [Lasix] 10 mg PO DAILY Albuterol Sulfate [Proair Hfa] 1 - 2 puff INHALATION Q6H PRN PRN Reason: Shortness Of Breath traMADol HCL [Ultram] 50 mg PO Q6HR PRN PRN Reason: Pain Ibuprofen [Motrin] 800 mg PO Q8H PRN PRN Reason: Pain Discharge Medication List Furosemide [Lasix] 10 mg PO DAILY 04/02/16 [History] Metoprolol Tartrate [Lopressor] 12.5 mg PO BID 04/02/16 [History] Potassium Chloride ER [K-Dur 10] 10 meq PO DAILY 04/02/16 [History] Albuterol Sulfate [Proair Hfa] 1 - 2 puff INHALATION Q6H PRN 03/10/17 [History] Ibuprofen [Motrin] 800 mg PO Q8H PRN 12/25/17 [History] traMADol HCL [Ultram] 50 mg PO Q6HR PRN 12/25/17 [History] Atorvastatin [Lipitor] 80 mg PO HS #30 tab 07/31/20 [Rx] Clopidogrel [Plavix] 75 mg PO DAILY #90 tab 07/31/20 [Rx] Follow up Appointment(s)/Referral(s): Yamilet Torres MD [STAFF PHYSICIAN] - 1 Week Patient Instructions/Handouts: Left Heart Catheterization (DC), Procedural Sedation (ED)
[2020-07-31 08:07] LABS: African American GFR (CKD) >90 (>60 ml/min/1.73 sqM); Anion Gap 2 mmol/L; Blood Urea Nitrogen 10 mg/dL (7-17); Carbon Dioxide 28 mmol/L (22-30); Chloride 108 mmol/L (98-107); Glucose 96 mg/dL (74-99); Non-African American GFR(CKD) 81 (>60 ml/min/1.73 sqM); Potassium 4.3 mmol/L (3.5-5.1); Sodium 138 mmol/L (137-145)
[2020-07-31] MEDS: METOPROLOL TARTRATE 12.5 MG TAB PO SCH (08:26)
[2020-07-31] MEDS: ONDANSETRON 4 MG TAB PO PRN (08:31)
[2020-07-31] MEDS ORDERED: ONDANSETRON 4 MG/2 ML VIAL IVP PRN (08:38)
[2020-07-31] MEDS ORDERED: FUROSEMIDE 10 MG TAB PO SCH (09:00)
[2020-07-31] MEDS ORDERED: CLOPIDOGREL 75 MG TAB PO SCH (09:00)
[2020-07-31] MEDS ORDERED: ASPIRIN 325 MG TAB PO SCH (09:00)
[2020-07-31] MEDS ORDERED: POTASSIUM CHLORIDE ER 10 MEQ TAB.ER.PRT PO SCH (09:00)
[2020-07-31 11:05] VITALS: BP 133/75
--- NOTE | 2020-08-05 12:11 | P.HPCAR ---
History of Present Illness H&P Date: 07/30/20 This is a 70-year-old female with history of ischemic heart disease with a previous bypass surgery with FOOTE graft to the LAD, vein graft to the diagonal to the OM branch and also right coronary artery done many years ago. Patient recently came to the office with complaints of chest pains and shortness of breath with exertion. He had a nuclear stress test which was not diagnostic for ischemia. However, patient continued to have symptoms and wanted to proceed with cardiac catheterization for definitive diagnosis. Patient fully understood the risks and benefits of the procedure Review of Systems As per the chart Past Medical History Past Medical History: Asthma, COPD, GERD/Reflux, Hyperlipidemia, Hypertension, Osteoarthritis (OA) Additional Past Medical History / Comment(s): MIGRAINE HEADACHE,GLAUCOMA, SEE DR MILLS'S HISTORY AND PHYSICAL FOR CARDIAC HISTORY, SHORTNESS OF BREATH WITH EXERTION History of Any Multi-Drug Resistant Organisms: None Reported Past Surgical History: Cholecystectomy, Coronary Bypass/CABG, Heart Catheterization Additional Past Surgical History / Comment(s): FRONTAL SINUS SURGERY-TUMOR OF THE BONE X3 Past Anesthesia/Blood Transfusion Reactions: No Reported Reaction Additional Past Anesthesia/Blood Transfusion Reaction / Comment(s): "WOKE UP DURING SURGERY" ONCE Past Psychological History: No Psychological Hx Reported Smoking Status: Never smoker Past Alcohol Use History: None Reported Additional Past Alcohol Use History / Comment(s): STARTED SMOKING AT AGE 17 QUIT SMOKING AT AGE 44 SMOKED 2-3PPD Past Drug Use History: None Reported - Past Family History Mother Family Medical History: No Reported History Father Family Medical History: Cancer Physical Examination Blood pressure is 130/70. Pulse is about 70 Physical Exam: GENERAL EXAM: Patient is alert and oriented and doesn't appear to be in any acute distress HEENT: Normocephalic. Normal reaction of pupils, equal size, normal range of extraocular motion. No erythema or exudates in the throat. NECK: No masses, no nuchal rigidity. CHEST: No chest wall deformity. LUNGS: Equal air entry with no crackles or wheeze. HEART: S1 and S2 normal with no audible mumurs or gallops. Regular rhythm, femorals equal on both sides.. ABDOMEN: No hepatosplenomegaly, normal bowel sounds, no guarding or rigidity. SKIN: No rashes CENTRAL NERVOUS SYSTEM: No focal deficits. EXTREMITIES: No cyanosis, clubbing or edema. Results 07/31/20 07:37 07/31/20 07:37 07/31/20 07:37 07/31/20 07:37 EKG Interpretations (text) Sinus rhythm Assessment and Plan (1) CAD (coronary artery disease), [place] coronary artery Status: Acute Code(s): I25.10 - ATHSCL HEART DISEASE OF [place] CORONARY ARTERY W/O ANG PCTRS SNOMED Code(s): 971754213 (2) History of coronary artery bypass graft Status: Acute Code(s): Z95.1 - PRESENCE OF AORTOCORONARY BYPASS GRAFT SNOMED Code(s): 448127368 (3) Hypercholesterolemia Status: Acute Code(s): E78.00 - PURE HYPERCHOLESTEROLEMIA, UNSPECIFIED SNOMED Code(s): 59848290 (4) Chest pain Narrative/Plan: Patient is having exertional chest pain and shortness of breath. We'll proceed with cardiac cath for definitive diagnosis Status: Acute Code(s): R07.9 - CHEST PAIN, UNSPECIFIED SNOMED Code(s): 50210222 Plan: As patient is continuing to have chest pains in spite of a negative stress test, we'll proceed with cardiac cath for definitive diagnosis. Patient is fully aware of the risks and options the procedure
== END 2020-07-31 11:48 | disposition home or self-care (01) ==
LOC: CATHCVL 07:53 → 3NCARDOBS 09:19 → CATHCVL 07-31 11:48
PROVIDERS: ATTEND Internal Medicine Cardiovascular Disease
DX: I25.119 Atherosclerotic heart disease of native coronary artery with unspecified angina pectoris (principal); R06.02 Shortness of breath; R11.0 Nausea; E78.00 Pure hypercholesterolemia, unspecified; E78.5 Hyperlipidemia, unspecified; I10 Essential (primary) hypertension; J44.9 Chronic obstructive pulmonary disease, unspecified; K21.9 Gastro-esophageal reflux disease without esophagitis; M19.90 Unspecified osteoarthritis, unspecified site; Z79.02 Long term (current) use of antithrombotics/antiplatelets; Z95.1 Presence of aortocoronary bypass graft
CPT/HCPCS: 93459; 80048; 85025; C9604; C1769 ×4; C1760; C1887; C1894; C1874; J2250; J2405; J2001; J3010; J0583; J1170; Q9967

== ENCOUNTER 2020-10-07 10:38 | Emergency (ER) | payer MEDICARE ==
[2020-10-07 10:54] VITALS: TEMP 98.6
[2020-10-07 12:01] LABS: Basophils # (A) 0.1 k/uL (0-0.2); Basophils % (A) 3 %; Eosinophils # (A) 0.1 k/uL (0-0.7); Eosinophils % (A) 2 %; HCT 40.4 % (34.0-46.0); HGB 14.1 gm/dL (11.4-16.0); Lymphocytes # (A) 0.6 k/uL (1.0-4.8); Lymphocytes % (A) 20 %; MCH 30.6 pg (25.0-35.0); MCHC 34.9 g/dL (31.0-37.0); MCV 87.7 fL (80.0-100.0); Mean Platelet Volume 7.4; Monocytes # (A) 0.3 k/uL (0-1.0); Monocytes % (A) 11 %; Neutrophils # (A) 1.9 k/uL (1.3-7.7); Neutrophils % (A) 63 %; Platelet Count 140 k/uL (150-450); RBC 4.61 m/uL (3.80-5.40); RDW 12.9 % (11.5-15.5); WBC 3.1 k/uL (3.8-10.6)
--- NOTE | 2020-10-07 12:06 | ED ---
General Adult HPI - General Chief complaint: Upper Respiratory Infection Stated complaint: Covid Exposure, SOB Time Seen by Provider: 10/07/20 11:00 Source: patient, RN notes reviewed, old records reviewed Mode of arrival: ambulatory Limitations: no limitations - History of Present Illness Initial comments: 70-year-old female presents emergency Department chief complaint of concern for Covid exposure and cough congestion shortness of breath. She reports she's been having significant symptoms for the past 2 days. She denies any recorded fevers at home with complaint of body aches. She states that her daughter was diagnosed with Covid. - Related Data Home Medications Medication Instructions Recorded Confirmed Acetaminophen Tab [Tylenol Tab] 500 mg PO Q6H PRN 10/07/20 10/07/20 Aspirin EC [Ecotrin Low Dose] 81 mg PO HS 10/07/20 10/07/20 Ezetimibe [Zetia] 10 mg PO DAILY 10/07/20 10/07/20 Furosemide [Lasix] 20 mg PO DAILY 10/07/20 10/07/20 Metoprolol Tartrate [Lopressor] 12.5 mg PO DAILY 10/07/20 10/07/20 Multivit-Min/FA/Lycopen/Lutein 1 tab PO DAILY 10/07/20 10/07/20 [Centrum Silver Tablet] Omeprazole 20 mg PO DAILY 10/07/20 10/07/20 Potassium Chloride ER [K-Dur 10] 10 meq PO DAILY 10/07/20 10/07/20 Prasugrel HCl [Effient] 5 mg PO HS 10/07/20 10/07/20 Previous Rx's Medication Instructions Recorded Albuterol Inhaler [Ventolin Hfa 1 puff INHALATION RT-QID #1 puff 10/07/20 Inhaler] Azithromycin [Zithromax Z-pack (6 250 mg PO DIRECTED 5 Days #6 tab 10/07/20 tabs)] Cholecalciferol [Vitamin D3] 400 unit PO DAILY@1200 #30 tablet 10/07/20 Zinc 50 mg PO DAILY #30 tablet 10/07/20 predniSONE [Deltasone] 20 mg PO BID #10 tab 10/07/20 Allergies Allergy/AdvReac Type Severity Reaction Status Date / Time gabapentin [From Neurontin] AdvReac Hallucinati Verified 10/07/20 12:20 ons Review of Systems ROS Statement: Those systems with pertinent positive or pertinent negative responses have been documented in the HPI. ROS Other: All systems not noted in ROS Statement are negative. Past Medical History Past Medical History: Asthma, COPD, GERD/Reflux, Hyperlipidemia, Hypertension, Osteoarthritis (OA) Additional Past Medical History / Comment(s): MIGRAINE HEADACHE,GLAUCOMA, SEE DR MILLS'S HISTORY AND PHYSICAL FOR CARDIAC HISTORY, SHORTNESS OF BREATH WITH EXERTION History of Any Multi-Drug Resistant Organisms: None Reported Past Surgical History: Cholecystectomy, Coronary Bypass/CABG, Heart Catheter ization, Heart Catheterization With Stent Additional Past Surgical History / Comment(s): FRONTAL SINUS SURGERY-TUMOR OF THE BONE X3 Past Anesthesia/Blood Transfusion Reactions: No Reported Reaction Additional Past Anesthesia/Blood Transfusion Reaction / Comment(s): "WOKE UP DURING SURGERY" ONCE Past Psychological History: No Psychological Hx Reported Smoking Status: Never smoker Past Alcohol Use History: None Reported Past Drug Use History: None Reported - Past Family History Mother Family Medical History: No Reported History Father Family Medical History: Cancer General Exam - General Exam Comments Initial Comments: 70-year-old female. Alert and oriented. No distress. Limitations: no limitations General appearance: alert, in no apparent distress Head exam: Present: atraumatic Eye exam: Present: normal appearance, PERRL, EOMI. Absent: scleral icterus, co njunctival injection, periorbital swelling ENT exam: Present: normal exam, mucous membranes moist Neck exam: Present: normal inspection. Absent: tenderness, meningismus, lymphadenopathy Respiratory exam: Present: normal lung sounds bilaterally. Absent: respiratory distress, wheezes, rales, rhonchi, stridor Cardiovascular Exam: Present: regular rate, normal rhythm, normal heart sounds. Absent: systolic murmur, diastolic murmur, rubs, gallop, clicks GI/Abdominal exam: Present: soft, normal bowel sounds. Absent: distended, tenderness, guarding, rebound, rigid Extremities exam: Present: normal inspection, full ROM, normal capillary refill. Absent: tenderness, pedal edema, joint swelling, calf tenderness Back exam: Present: normal inspection Course Vital Signs 10/07/20 10/07/20 10/07/20 10:52 11:53 12:00 Temperature 98.6 F Pulse Rate 120 H 91 98 Respiratory 18 22 18 Rate Blood Pressure 156/78 108/94 O2 Sat by Pulse 98 99 100 Oximetry 12/16/20 14:56 Temperature Pulse Rate 72 Respiratory 18 Rate Blood Pressure 130/78 O2 Sat by Pulse 99 Oximetry Medical Decision Making - Medical Decision Making 70 year old male with 2 days of fatigue, cough and concerned for COVID exposure. Pt at this time has positive covid test, oxygen saturation is 99% on room air. She was given IV fluids, decadron and tylenol. Pt had positive D Dimer, and CT chest angio is negative. She is remaining on anticoagulation from cardiac stent 2 months ago. Discussed CXR findings and normal vitals pt can be discharged home. Did discuss return parameters and will treat pt with steroids, a zithromycin, and Vit D, C and Zinc. - Lab Data Result diagrams: 10/07/20 11:40 10/07/20 11:40 Lab Results 10/07/20 10/07/20 10/07/20 Range/Units 11:11 11:40 11:40 WBC 3.1 L (3.8-10.6) k/uL RBC 4.61 (3.80-5.40) m/uL Hgb 14.1 (11.4-16.0) gm/dL Hct 40.4 (34.0-46.0) % MCV 87.7 (80.0-100.0) fL MCH 30.6 (25.0-35.0) pg MCHC 34.9 (31.0-37.0) g/dL RDW 12.9 (11.5-15.5) % Plt Count 140 L (150-450) k/uL MPV 7.4 Neutrophils % 63 % Lymphocytes % 20 % Monocytes % 11 % Eosinophils % 2 % Basophils % 3 % Neutrophils # 1.9 (1.3-7.7) k/uL Lymphocytes # 0.6 L (1.0-4.8) k/uL Monocytes # 0.3 (0-1.0) k/uL Eosinophils # 0.1 (0-0.7) k/uL Basophils # 0.1 (0-0.2) k/uL PT 10.7 (9.0-12.0) sec INR 1.0 (<1.2) APTT 24.8 (22.0-30.0) sec D-Dimer 1.01 H (<0.60) mg/L FEU Sodium (137-145) mmol/L Potassium (3.5-5.1) mmol/L Chloride (98-107) mmol/L Carbon Dioxide (22-30) mmol/L Anion Gap mmol/L BUN (7-17) mg/dL Creatinine (0.52-1.04) mg/dL Est GFR (CKD-EPI)AfAm (>60 ml/min/1.73 sqM) Est GFR (CKD-EPI)NonAf (>60 ml/min/1.73 sqM) Glucose (74-99) mg/dL Plasma Lactic Acid Parker (0.7-2.0) mmol/L Calcium (8.4-10.2) mg/dL Magnesium (1.6-2.3) mg/dL Ferritin (10.0-291.0) ng/mL Total Bilirubin (0.2-1.3) mg/dL AST (14-36) U/L ALT (4-34) U/L Alkaline Phosphatase (38-126) U/L Lactate Dehydrogenase (313-618) U/L C-Reactive Protein (<10.0) mg/L Total Protein (6.3-8.2) g/dL Albumin (3.5-5.0) g/dL Procalcitonin (0.02-0.09) ng/mL Coronavirus (PCR) Detected A (Not Detectd) 10/07/20 10/07/20 10/07/20 Range/Units 11:40 12:32 12:32 WBC (3.8-10.6) k/uL RBC (3.80-5.40) m/uL Hgb (11.4-16.0) gm/dL Hct (34.0-46.0) % MCV (80.0-100.0) fL MCH (25.0-35.0) pg MCHC (31.0-37.0) g/dL RDW (11.5-15.5) % Plt Count (150-450) k/uL MPV Neutrophils % % Lymphocytes % % Monocytes % % Eosinophils % % Basophils % % Neutrophils # (1.3-7.7) k/uL Lymphocytes # (1.0-4.8) k/uL Monocytes # (0-1.0) k/uL Eosinophils # (0-0.7) k/uL Basophils # (0-0.2) k/uL PT (9.0-12.0) sec INR (<1.2) APTT (22.0-30.0) sec D-Dimer (<0.60) mg/L FEU Sodium 136 L (137-145) mmol/L Potassium 5.0 (3.5-5.1) mmol/L Chloride 106 (98-107) mmol/L Carbon Dioxide 19 L (22-30) mmol/L Anion Gap 11 mmol/L BUN 11 (7-17) mg/dL Creatinine 0.75 (0.52-1.04) mg/dL Est GFR (CKD-EPI)AfAm >90 (>60 ml/min/1.73 sqM) Est GFR (CKD-EPI)NonAf 81 (>60 ml/min/1.73 sqM) Glucose 104 H (74-99) mg/dL Plasma Lactic Acid Parker 0.7 (0.7-2.0) mmol/L Calcium 9.6 (8.4-10.2) mg/dL Magnesium 1.9 (1.6-2.3) mg/dL Ferritin (10.0-291.0) ng/mL Total Bilirubin 0.7 (0.2-1.3) mg/dL AST 41 H (14-36) U/L ALT 23 (4-34) U/L Alkaline Phosphatase 80 (38-126) U/L Lactate Dehydrogenase 728 H (313-618) U/L C-Reactive Protein <5.0 (<10.0) mg/L Total Protein 8.0 (6.3-8.2) g/dL Albumin 4.4 (3.5-5.0) g/dL Procalcitonin 0.05 (0.02-0.09) ng/mL Coronavirus (PCR) (Not Detectd) 10/07/20 Range/Units 12:32 WBC (3.8-10.6) k/uL RBC (3.80-5.40) m/uL Hgb (11.4-16.0) gm/dL Hct (34.0-46.0) % MCV (80.0-100.0) fL MCH (25.0-35.0) pg MCHC (31.0-37.0) g/dL RDW (11.5-15.5) % Plt Count (150-450) k/uL MPV Neutrophils % % Lymphocytes % % Monocytes % % Eosinophils % % Basophils % % Neutrophils # (1.3-7.7) k/uL Lymphocytes # (1.0-4.8) k/uL Monocytes # (0-1.0) k/uL Eosinophils # (0-0.7) k/uL Basophils # (0-0.2) k/uL PT (9.0-12.0) sec INR (<1.2) APTT (22.0-30.0) sec D-Dimer (<0.60) mg/L FEU Sodium (137-145) mmol/L Potassium (3.5-5.1) mmol/L Chloride (98-107) mmol/L Carbon Dioxide (22-30) mmol/L Anion Gap mmol/L BUN (7-17) mg/dL Creatinine (0.52-1.04) mg/dL Est GFR (CKD-EPI)AfAm (>60 ml/min/1.73 sqM) Est GFR (CKD-EPI)NonAf (>60 ml/min/1.73 sqM) Glucose (74-99) mg/dL Plasma Lactic Acid Parker (0.7-2.0) mmol/L Calcium (8.4-10.2) mg/dL Magnesium (1.6-2.3) mg/dL Ferritin 112.1 (10.0-291.0) ng/mL Total Bilirubin (0.2-1.3) mg/dL AST (14-36) U/L ALT (4-34) U/L Alkaline Phosphatase (38-126) U/L Lactate Dehydrogenase (313-618) U/L C-Reactive Protein (<10.0) mg/L Total Protein (6.3-8.2) g/dL Albumin (3.5-5.0) g/dL Procalcitonin (0.02-0.09) ng/mL Coronavirus (PCR) (Not Detectd) - Radiology Data Radiology results: report reviewed CXR is negative for acute pulmonary process. CT chest angio is negative for PE Disposition Clinical Impression: COVID-19 Disposition: HOME SELF-CARE Condition: Good Instructions (If sedation given, give patient instructions): Upper Respiratory Infection (ED) Additional Instructions: Patient is to use medication as prescribed. Purchase pulse oximeter and if you have oxygen readings below 93% had severe difficulty or worsening difficulty breathing. Return to the ER for reevaluation. Patient advised to have no contact with other people and was seeking medical care. You should quarantine. Rest, remain hydrated. Alternate Motrin and Tylenol. Take Mucinex for symptoms. Prescriptions: predniSONE [Deltasone] 20 mg PO BID #10 tab Albuterol Inhaler [Ventolin Hfa Inhaler] 1 puff INHALATION RT-QID #1 puff Cholecalciferol [Vitamin D3] 400 unit PO DAILY@1200 #30 tablet Zinc 50 mg PO DAILY #30 tablet Azithromycin [Zithromax Z-pack (6 tabs)] 250 mg PO DIRECTED 5 Days #6 tab Is patient prescribed a controlled substance at d/c from ED?: No Referrals: Yann Sena Jr, [Primary Care Provider] - 1-2 days Time of Disposition: 14:17
[2020-10-07 12:19] LABS: Partial Thromboplastin Time 24.8 sec (22.0-30.0); Prothrombin Time 10.7 sec (9.0-12.0)
[2020-10-07 12:23] LABS: D-Dimer 1.01 mg/L FEU (<0.60)
--- NOTE | 2020-10-07 12:26 | XR ---
EXAMINATION TYPE: XR chest 1V portable DATE OF EXAM: 10/07/2020 HISTORY: Shortness of breath. COMPARISON: 01/01/2020 TECHNIQUE: Single view of the chest is submitted. FINDINGS: Demonstrated are scattered senescent parenchymal change. There is no evidence for focal infiltrate. The heart is stable. Hilar and mediastinal structures are within normal limits. Degenerative changes are seen of the dorsal spine. IMPRESSION: 1. Chronic changes without evidence for acute pulmonary disease.
[2020-10-07 12:27] LABS: ALT 23 U/L (4-34); African American GFR (CKD) >90 (>60 ml/min/1.73 sqM); Albumin 4.4 g/dL (3.5-5.0); Anion Gap 11 mmol/L; Blood Urea Nitrogen 11 mg/dL (7-17); C Reactive Protein <5.0 mg/L (<10.0); Calcium 9.6 mg/dL (8.4-10.2); Carbon Dioxide 19 mmol/L (22-30); Chloride 106 mmol/L (98-107); Glucose 104 mg/dL (74-99); LDH 728 U/L (313-618); Non-African American GFR(CKD) 81 (>60 ml/min/1.73 sqM); Sodium 136 mmol/L (137-145); Total Bilirubin 0.7 mg/dL (0.2-1.3)
[2020-10-07 12:31] LABS: AST 41 U/L (14-36); Alkaline Phosphatase 80 U/L (38-126); Magnesium 1.9 mg/dL (1.6-2.3)
[2020-10-07] MEDS ORDERED: ACETAMINOPHEN TAB 500 MG TAB PO STA (12:39)
[2020-10-07] MEDS ORDERED: IBUPROFEN 600 MG TAB PO STA (12:39)
[2020-10-07] MEDS ORDERED: SODIUM CHLORIDE 0.9% 2,000 ML IV ONE (12:39)
[2020-10-07] MEDS ORDERED: DEXAMETHASONE SOD PHOSPHATE 10 MG/ML 1 ML VIAL IV STA (12:41)
[2020-10-07 12:55] VITALS: RESP 18
--- NOTE | 2020-10-07 14:03 | CT ---
EXAMINATION TYPE: CT chest angio for PE DATE OF EXAM: 10/07/2020 COMPARISON: 01/01/2020 HISTORY: Positive d-dimer CT DLP: 330 mGycm Automated exposure control for dose reduction was used. CONTRAST: CT Chest for pulmonary embolism performed with without and with IV Contrast, patient injected with 10 0 ml mL of Isovue 370. FINDINGS: LUNGS: The lungs are grossly clear, there is no concerning parenchymal mass or nodule identified. T here is no pleural effusion or pneumothorax seen. The tracheobronchial tree is patent. Subsegmental changes involving the lung bases. MEDIASTINUM: There is satisfactory enhancement of the pulmonary artery and its branches, there is no CT evidence for pulmonary embolism. There are no greater than 1 cm hilar or mediastinal lymph nodes. Mild atherosclerotic changes aorta and its branch vessels. Coronary artery calcification suggested. Post sternotomy changes noted. OTHER: Hypertrophic and degenerative change of the spine small hiatal hernia noted. IMPRESSION: 1. No diagnostic evidence of pulmonary embolism.
[2020-10-07 14:57] VITALS: BP 130/78; PULSE 72
== END 2020-10-07 14:58 | disposition home or self-care (01) ==
LOC: EC 10:38
DX: U07.1 COVID-19 (principal); K21.9 Gastro-esophageal reflux disease without esophagitis; I10 Essential (primary) hypertension; E78.5 Hyperlipidemia, unspecified; J45.909 Unspecified asthma, uncomplicated; Z79.82 Long term (current) use of aspirin; Z79.899 Other long term (current) drug therapy; Z88.8 Allergy status to other drugs, medicaments and biological substances; Z95.1 Presence of aortocoronary bypass graft
CPT/HCPCS: 36415; 93005; 85379; 80053; 82728; 83605; 83615; 83735; 85025; 85610; 85730; 86140; 87040; 84145; 87635; 71045; 71275; 99285; 96374; 96361 ×2; J1100; Q9967

== ENCOUNTER 2021-03-18 20:49 | Inpatient (IN) | payer MEDICARE ==
[~2021-03-18 20:49] MED LIST changes: -ALPRAZolam 0.25 MG TAB PO PRN; -ALPRAZolam 0.5 MG TAB PO PRN; -ASPIRIN 325 MG TAB PO STA; -ATORVASTATIN 80 MG TAB PO STA; +HEPARIN SODIUM 1,000 UN/ML (10ML VL) IV ONE; -NITROGLYCERIN SL TABS 0.4 MG TAB SUBLINGUAL PRN; -SODIUM CHLORIDE 0.9% 1,000 ML in EMPTY BAG 1 BAG IV ONE; +TIROFIBAN BOLUS 12.5MG/250 ML BAG IV ONE
[2021-03-18] MEDS ORDERED: MORPHINE SULFATE 4 MG/ML SYRINGE IV STA (20:55)
--- NOTE | 2021-03-18 21:04 | ED ---
Chest Pain HPI - General Chief Complaint: Chest Pain Stated Complaint: Chest pain Time Seen by Provider: 03/18/21 20:55 Source: patient, EMS Mode of arrival: EMS Limitations: no limitations - History of Present Illness Initial Comments: Is a 70-year-old female to history of CAD status post bypass graft and stent placement who presents emergency department for chest pain. She states it started approximately 45 minutes prior to arrival. She describes as a pressure- like sensation in the center of her chest that wraps around to her bilateral back. She states it also goes up into her right neck as well. She has some associated diaphoresis and she had some nausea and vomiting as well. She tried taking aspirin and a couple nitro at home without any major relief. She was also given aspirin and 2 nitro in route to the hospital and she states that it improved her symptoms slightly however she still have an 8 out of 10 chest pain. The patient denies any significant shortness of breath. No lower [place] swelling pain. No abdominal pain. She follows with Dr. Cooper. - Related Data Home Medications Medication Instructions Recorded Confirmed Aspirin EC [Ecotrin Low Dose] 81 mg PO HS 10/07/20 03/18/21 Ezetimibe [Zetia] 10 mg PO DAILY 10/07/20 03/18/21 Furosemide [Lasix] 20 mg PO DAILY 10/07/20 03/18/21 Metoprolol Tartrate [Lopressor] 12.5 mg PO DAILY 10/07/20 03/18/21 Multivit-Min/FA/Lycopen/Lutein 1 tab PO DAILY 10/07/20 03/18/21 [Centrum Silver Tablet] Potassium Chloride ER [K-Dur 10] 10 meq PO DAILY 10/07/20 03/18/21 Prasugrel HCl [Effient] 5 mg PO HS 10/07/20 03/18/21 Albuterol Inhaler [Ventolin Hfa 1 puff INHALATION RT-QID PRN 03/18/21 03/18/21 Inhaler] Amoxicillin 500mg Tablet 500 mg PO Q8H 03/18/21 03/18/21 DULoxetine HCL [Cymbalta] 20 mg PO DAILY 03/18/21 03/18/21 Ibuprofen [Motrin] 800 mg PO TID PRN 03/18/21 03/18/21 Omeprazole 40 mg PO DAILY 03/18/21 03/18/21 Allergies Allergy/AdvReac Type Severity Reaction Status Date / Time gabapentin [From Neurontin] AdvReac Hallucinati Verified 10/07/20 12:20 ons Review of Systems ROS Statement: Those systems with pertinent positive or pertinent negative responses have been documented in the HPI. ROS Other: All systems not noted in ROS Statement are negative. EKG Findings - EKG Comments: EKG Findings:: EKG showing normal sinus rhythm with a rate of 60. There is significant ST depression in V3 through V6 and also lead to 3 and aVF with T- wave inversions associated. Questionable mild ST elevation in aVR and V1. QTC 420. Other intervals are normal. No ectopy. Past Medical History Past Medical History: Asthma, COPD, GERD/Reflux, Hyperlipidemia, Hypertension, Osteoarthritis (OA) Additional Past Medical History / Comment(s): MIGRAINE HEADACHE,GLAUCOMA, SEE DR MILLS'S HISTORY AND PHYSICAL FOR CARDIAC HISTORY, SHORTNESS OF BREATH WITH EXERTION History of Any Multi-Drug Resistant Organisms: None Reported Past Surgical History: Cholecystectomy, Coronary Bypass/CABG, Heart Catheterization, Heart Catheterization With Stent Additional Past Surgical History / Comment(s): FRONTAL SINUS SURGERY-TUMOR OF THE BONE X3 Past Anesthesia/Blood Transfusion Reactions: No Reported Reaction Additional Past Anesthesia/Blood Transfusion Reaction / Comment(s): "WOKE UP DURING SURGERY" ONCE Past Psychological History: No Psychological Hx Reported Smoking Status: Never smoker Past Alcohol Use History: None Reported Past Drug Use History: None Reported - Past Family History Mother Family Medical History: No Reported History Father Family Medical History: Cancer General Exam - General Exam Comments Initial Comments: Constitutional: Awake alert the patient appears uncomfortable Head: Normocephalic atraumatic Eyes: no conjunctival injection No scleral icterus EOMI Neck: No JVD Supple Heart: Regular rate rhythm normal S1-S2 no murmurs Lungs: Clear to auscultation bilaterally No wheezing No rales Abdomen: Soft nondistended nontender Extremities: Non edematous DP pulses intact and equal Radial pulses intact and equal Neuro: A&Ox3 No focal neurologic deficits Psych: Appropriate mood and affect Limitations: no limitations Course Vital Signs 03/18/21 03/18/21 03/18/21 20:51 21:02 21:19 Temperature 97.7 F Pulse Rate 66 55 L Pulse Rate [ 59 L Life Trainer ] Respiratory 18 20 Rate Blood Pressure 120/66 114/67 O2 Sat by Pulse 100 99 Oximetry 03/18/21 21:45 Temperature Pulse Rate 65 Pulse Rate [ Life Trainer ] Respiratory 18 Rate Blood Pressure 127/71 O2 Sat by Pulse 99 Oximetry - Reevaluation(s) Reevaluation #1: Spoke with Dr. Porter over the phone and presented case. He recommends activation of the Consulting Solution Manager at this time for urgent catheterization given the patient's persistent chest pain and EKG changes. 03/18/21 21:35 Reevaluation #2: Repeat EKG done at [address] depression and T-wave inversions in II, III, and F aVF, V3 through V6 with mild elevations in V1 and aVR. Patient continues to have 7 out of 10 chest pain even after morphine. Blood pressure was little softer earlier however has now improved we'll start nitroglycerin drip at this time and heparin drip. 03/18/21 21:35 Chest Pain [facility] This is a 70-year-old female who presents emergency department for chest pain. Patient appeared diaphoretic and uncomfortable on arrival. Clutching her chest. Complaining of chest pain radiating into her back. Patient's vital worse were stable on arrival however did gets a little bit soft after morphine administration. The patient's pain was persistent even after nitroglycerin given in route and also the morphine given here. Her EKG changes were consistent as well and for this reason I spoke with on-call cardiology, Dr. Porter, who recommended that the patient undergo urgent heart catheterization. I spoke with Dr. Campa who was updated on the plan and agrees with plan of care at this time. Disposition Clinical Impression: NSTEMI (non-ST elevated myocardial infarction) Disposition: ADMITTED IP TO THIS HOSP Condition: Critical
[2021-03-18 21:13] LABS: HCT 40.7 % (34.0-46.0); HGB 12.9 gm/dL (11.4-16.0); MCH 27.5 pg (25.0-35.0); MCHC 31.8 g/dL (31.0-37.0); MCV 86.4 fL (80.0-100.0); Platelet Count 210 k/uL (150-450); RBC 4.71 m/uL (3.80-5.40); RDW 13.3 % (11.5-15.5); WBC 14.4 k/uL (3.8-10.6)
[2021-03-18 21:15] LABS: Albumin 4.3 g/dL (3.5-5.0); Calcium 9.7 mg/dL (8.4-10.2); Magnesium 1.9 mg/dL (1.6-2.3); Potassium 3.3 mmol/L (3.5-5.1); Total Bilirubin 0.3 mg/dL (0.2-1.3)
[2021-03-18 21:23] LABS: Lymphocytes # (M) 7.49 k/uL (1.0-4.8); Monocytes # (M) 0.72 k/uL (0-1.0); Neutrophils # (M) 6.19 k/uL (1.3-7.7); Neutrophils % (M) 43 %; Nucleated Red Blood Cells 0 /100 WBC (0-0); Total Cells Counted 100
[2021-03-18 21:25] LABS: Partial Thromboplastin Time 22.5 sec (22.0-30.0); Prothrombin Time 10.8 sec (9.0-12.0)
[2021-03-18] MEDS ORDERED: SODIUM CHLORIDE 0.9% 1,000 ML IV SCH (21:30)
[2021-03-18] MEDS ORDERED: HEPARIN SODIUM 1,000 UN/ML (10ML VL) IV PRN (21:32)
[2021-03-18] MEDS ORDERED: HEPARIN SODIUM 1,000 UN/ML (10ML VL) IV ONE (21:32)
[2021-03-18] MEDS ORDERED: NITROGLYCERIN-D5W PMX 50 MG in DEXTROSE/WATER 1 250ML.BAG IV ONE (21:32)
[2021-03-18] MEDS ORDERED: HEPARIN SOD,PORK IN 0.45% NACL 25,000 UNIT in 0.45% NACL 1 250ML.BAG IV SCH (21:45)
--- NOTE | 2021-03-18 22:05 | XR ---
EXAMINATION: XR chest 1V portable DATE AND TIME: 03/18/2021 9:11 PM CLINICAL INDICATION: PHH; chest pain TECHNIQUE: AP upright portable COMPARISON: 10/07/2020 FINDINGS: The lungs are clear. The pleural spaces are negative. Sternal sutures and mediastinal clips are redemonstrated. The cardiac silhouette is not enlarged. The remainder of the mediastinal silhouette is unremarkable. The skeletal structures and soft tissues are negative for acute findings. IMPRESSION: NO ACUTE PROCESS.
[2021-03-18] MEDS ORDERED: LIDOCAINE 1% INJ 10MG/ML (20 ML MDV) ONE (22:06)
[2021-03-18 22:12] LABS: D-Dimer 0.72 mg/L FEU (<0.60)
[2021-03-18] MEDS ORDERED: LIDOCAINE 1% INJ 10MG/ML (20 ML MDV) SQ ONE ×3 (22:22→22:23)
[2021-03-18] MEDS ORDERED: MIDAZOLAM 2 MG/2 ML VIAL IVP ONE (22:24)
[2021-03-18] MEDS ORDERED: IV FLUID CONTINUATION 1,000 ML IV ONE (22:34)
[2021-03-18] MEDS ORDERED: TIROFIBAN 12.5MG-250ML NS 250 ML IV ONE (22:45)
[2021-03-18] MEDS ORDERED: IOPAMIDOL-370 100ML BTL INJ ONE ×2 (22:59→23:53)
[2021-03-18] MEDS ORDERED: NITROGLYCERIN 1000MCG/10ML SYRINGE INTRACORON ONE (23:30)
[2021-03-18] MEDS ORDERED: TICAGRELOR 90 MG TAB ONE (23:35)
[2021-03-18] MEDS ORDERED: TICAGRELOR 90 MG TAB PO ONE (23:35)
[2021-03-18] MEDS ORDERED: POTASSIUM CHLORIDE ER 20 MEQ TAB.ER PO STA (23:54)
[2021-03-18] MEDS ORDERED: Potassium Replacement Protocol 1 EACH MISC MISCELLANE PRN (23:55)
[2021-03-19 00:08] LABS: Glucose,Whole Blood 104 mg/dL (75-99)
[2021-03-19] MEDS: POTASSIUM CHLORIDE 10 MEQ in WATER FOR INJECTION 1 100ML.BAG IVPB SCH ×2 (00:27→01:32)
[2021-03-19] MEDS ORDERED: TIROFIBAN 12.5MG-250ML NS 250 ML IV SCH (00:30)
[2021-03-19] MEDS: ACETAMINOPHEN TAB 325 MG TAB PO PRN ×3 (03:24→20:08)
--- NOTE | 2021-03-19 04:10 | CONS ---
CONSULTATION CHIEF COMPLAINT: Chest pain HISTORY OF PRESENT ILLNESS: This is a 70-year-old lady with history of coronary artery disease status post CABG with FOOTE to LAD, venous graft to diagonal and OM, who presents to hospital complaining of chest pain that started about 1 and half hours ago. Her EKG shows ST-segment depression in the inferolateral leads suggestive of possible inferoposterior wall myocardial infarction. There are prominent R-waves in V1 and V2 with ST elevation in V1. At the time of my evaluation in the emergency room in the cardiac catheterization lab, patient still has chest discomfort. She already received nitroglycerin, morphine and has been on heparin. The patient underwent cardiac catheterization, angioplasty of venous graft to the diagonal branch in July of last year. She has had multiple prior cardiac catheterizations and angioplasties and bypass surgery I am told is almost 15 years old. PAST MEDICAL HISTORY: Significant for coronary artery disease status post CABG, status post multivessel angioplasty. MEDICATIONS: Medications at home include Effient 5 mg daily, K-Dur 10 daily, omeprazole 40 daily, Lopressor 12.5 daily, Lasix 20 daily, Zetia 10 q daily, Cymbalta, aspirin and albuterol. ALLERGIES: NEURONTIN. FAMILY HISTORY: Negative for premature coronary artery disease. SOCIAL HISTORY: Negative for current smoking, EtOH abuse, or drug abuse. REVIEW OF SYSTEMS: HEENT is unremarkable. Cardiac as described above, Respiratory negative. GI negative. GENITOURINARY: Negative. ALLERGY/IMMUNOLOGY: Negative. SKIN: Negative. MUSCULOSKELETAL: Negative. ENDOCRINE: Negative. HEMATOLOGICAL negative. DERM negative. CONSTITUTIONAL negative. PSYCHOSOCIAL negative. Rest of the system review is not relevant. PHYSICAL EXAMINATION: Patient is not in distress. Heart rate is 67 beats per minute. Blood pressure is 177/71, respiratory rate is 18. O2 saturation is 99% on 2 L. There is no jugular venous distention. Carotid upstroke is normal. There is no bruit. Chest exam reveals good air entry bilaterally. Heart exam reveals first and second heart sounds and a systolic murmur at the left lower sternal border. ABDOMEN: Soft. Exam of extremities did not reveal any edema. Peripheral pulses are palpable. The first set of troponin is negative. Hemoglobin is 12.9, potassium is 3.3, creatinine is 0.8. Troponin is negative. BNP is normal. D-dimer is 0.7 and is of unclear clinical significance. An EKG shows ST-segment depression in the inferolateral leads that is new and prominent R-wave in V2 and it is suggestive of an inferior posterior wall myocardial infarction. ASSESSMENT: Acute coronary syndrome, probably inferoposterior wall myocardial infarction. PLAN: The patient will undergo emergent cardiac catheterization and will decide on further course of action based on the cath findings. NICOL / HENNY: [id number] /
--- NOTE | 2021-03-19 04:14 | CC ---
CARDIAC CATHETERIZATION REPORT INDICATION: Acute coronary syndrome. PROCEDURE NOTE: After obtaining informed consent, left heart catheterization, coronary angiogram and selective injection of the bypass grafts is performed via the right femoral artery using standard Malorie catheters. The patient tolerated the procedure well without any obvious immediate complications. The patient received moderate conscious sedation. Total sedation time was 15 minutes. FINDINGS: HEMODYNAMICS: Left ventricular end-diastolic pressure is 15 mm. There is no significant gradient across the aortic valve. LEFT VENTRICULOGRAM: Not performed. ANGIOGRAPHIC DATA: [place] CORONARY ARTERIES: Left main coronary artery appears totally occluded in its proximal portion. Circumflex coronary artery and LAD also occluded proximally. Right coronary artery was subselectively engaged shows using a luis catheter. There is an area of ostial stenosis with diffuse disease involving the mid to distal right coronary artery, very similar to the way the artery was back in in July. SELECTIVE INJECTION OF THE BYPASS GRAFT: FOOTE to LAD appears patent. Proximal and distal anastomotic sites are free of significant disease and the body of the graft is free of disease. The [place] LAD has good flow. Venous graft to the OM branch appears patent. Proximal and distal anastomotic sites are free of significant disease. Body of the graft is free of significant disease and the [place] OM is free of disease. Selective injection of the venous graft to the diagonal branch: This was previously stented and the graft appears occluded right at its junction with the diagonal branch with a filling defect suggestive of a thrombus. CONCLUSIONS: [place] 3 vessel coronary artery disease as described above with patent FOOTE to LAD, patent venous graft to OM and acute thrombotic occlusion of the anastomotic site of the venous graft to the diagonal. PLAN: Angiographic data was reviewed by Dr. Paty Maki the on-call trip motor operator who will attempt angioplasty of the diagonal branch. MMODL / IJN: [id number] /
[2021-03-19 05:34] LABS: Basophils % (A) 0 %; Eosinophils % (A) 0 %; HCT 37.1 % (34.0-46.0); HGB 12.3 gm/dL (11.4-16.0); Lymphocytes # (A) 2.3 k/uL (1.0-4.8); Lymphocytes % (A) 30 %; MCHC 33.1 g/dL (31.0-37.0); MCV 87.5 fL (80.0-100.0); Mean Platelet Volume 7.7; Monocytes # (A) 0.4 k/uL (0-1.0); Monocytes % (A) 5 %; Neutrophils # (A) 4.7 k/uL (1.3-7.7); Neutrophils % (A) 63 %; Platelet Count 148 k/uL (150-450); RBC 4.24 m/uL (3.80-5.40); RDW 12.9 % (11.5-15.5); WBC 7.6 k/uL (3.8-10.6)
[2021-03-19 05:42] LABS: Partial Thromboplastin Time 27.4 sec (22.0-30.0)
[2021-03-19 05:49] LABS: African American GFR (CKD) >90 (>60 ml/min/1.73 sqM); Anion Gap 8 mmol/L; Blood Urea Nitrogen 13 mg/dL (7-17); Calcium 9.4 mg/dL (8.4-10.2); Carbon Dioxide 23 mmol/L (22-30); Chloride 105 mmol/L (98-107); Glucose 100 mg/dL (74-99); Non-African American GFR(CKD) 90 (>60 ml/min/1.73 sqM); Potassium 4.8 mmol/L (3.5-5.1); Sodium 136 mmol/L (137-145)
--- NOTE | 2021-03-19 06:40 | PTCA ---
PERCUTANEOUSTRANS CORORONARY ANGIOGRAPHY DATE OF SERVICE: 03/18/2021 PROCEDURE: PTCA and stenting of the saphenous vein graft to the major diagonal branch of LAD with a drug-eluting stent. PERFORMED BY: Dr. Paty Maki. ANESTHESIA: Moderate conscious sedation time was 60 minutes. Patient was administered Versed. Oxygen saturation, hemodynamic, and EKG were monitored closely. CLINICAL INFORMATION: Mrs. Erica Rueda is a 70-year-old lady who has known history of CAD, hypertension, hyperlipidemia, underwent aortocoronary bypass surgery in 2004 with a FOOTE to LAD, vein graft to diagonal and a vein graft to the circumflex marginal. RCA was not grafted. In July 2020, she presented with a non-ST elevation [place]/unstable angina, underwent stenting of SVG to the diagonal at the insertion site with a 2.0 caliber Shailesh drug- eluting stent. She presented to the hospital with chest pain suggestive of angina with ST-segment depression and a clinical picture of non-ST elevation OK. She was seen and evaluated by Dr. Sanon in the ER and he performed cardiac cath from the right femoral approach, which revealed that the vein graft to the obtuse marginal and FOOTE to LAD were patent and RCA had diffuse but noncritical disease. The vein graft to the diagonal that was stented had a 90% stenosis with thrombus that was located in the proximal portion of the stent as well as in the graft itself. She was advised intervention that was performed expeditiously. PROCEDURE NOTE: The existing 6-[place] introducer in the right femoral artery was used to perform the procedure. Initially I used a left coronary bypass guide catheter and a run-through wire. With this I crossed the lesion, but I could not advance the balloon beyond a certain area within the body of the graft where there was a clip on the fluoro monitor. That particular area had a bend in the body of the graft and I could not advance the balloon. After multiple attempts, I switched over to an ART 3.5 guide. With this I got better guide support but I still could not advance the balloon. I then used a GuideLiner and with a GuideLiner and a 2.0 balloon also I was unsuccessful. I then used a 1.5 mini Trek balloon and with this I was able to dilate the area where we had a constant obstruction and then I was able to advance a 2.5 NC Trek balloon of 12 mm length. With this I dilated the entire area from the area of resistance in the body of the graft in the distal portion all the way into the insertion site and through the stent. I then advanced a 2.75 caliber Xience stent of 23 mm length and I covered the area where I had a lot of resistance and all the way into the previously placed 2.0 Shailesh stent. This drug-eluting stent of 23 mm length was deployed at 12 atmospheres. Patient had chest pain and mild ST-segment depression. Excellent angiographic result was achieved without complication. Patient received 180 mg of Brilinta. She received 4000 units of heparin in the ER. Additional 1000 units of heparin was given here. The patient's ACT at the end of the procedure was about 256. She also received Aggrastat bolus and infusion as per protocol. Excellent angiographic result without complication was achieved. Procedure was somewhat challenging. A GuideLiner was used to get a better guide support. Overall result was excellent. Patient was asymptomatic. An EKG was an unremarkable and ANN-3 flow was noted. The sheath was taken out and Angio-Seal device used to secure hemostasis. She was sent to the room in a stable condition. Results were discussed with the patient and family. MMODL / IJN: [id number] /
--- NOTE | 2021-03-19 08:49 | P.PN ---
Subjective Progress Note Date: 03/19/21 Principal diagnosis: Acute coronary syndrome This is a very pleasant 70-year-old female patient was coronary artery disease and prior coronary artery bypass grafting as well as hypertension and dyslipidemia who presented to the hospital with chest discomfort and underwent an emergent heart catheterization by Dr. Sanon and that revealed severe [place] triple-vessel coronary artery disease with patent FOOTE to LAD and patent SVG to OM with acute somatic occlusion of the SVG to diagonal. The patient underwent successful stenting of that graft. Apparently she was found to have large thrombus burden. The patient was seen this morning. She is asymptomatic. The right groin is soft and nontender with mild bruises. The patient currently is on IIb IIIa inhibitors with Aggrastat because of the large thrombus burden. That should continue for 12 hours and after that was stopped the medication. Beside that we'll continue dual antiplatelet therapy along with high intensity statin. An echocardiogram is in process to be done. Objective - Vital Signs Vital signs: Vital Signs Temp 98 F 03/19/21 04:00 Pulse 71 03/19/21 07:00 Resp 18 03/19/21 07:00 BP 117/56 03/19/21 07:00 Pulse Ox 97 03/19/21 07:00 Intake & Output 03/18/21 03/19/21 03/19/21 18:59 06:59 18:59 Intake Total 748.232 Output Total 950 Balance -201.768 Weight 74.7 kg Intake: IV 720 Sodium Chloride 0.9% 1, 600 000 ml @ 75 mls/hr IV . [id number] [facility] Rx#:[id number] Intake, IV Titration 28.232 Amount Heparin Sod,Pork in 0.45% 21.282 NaCl 25,000 unit In 0.45 % NaCl 1 250ml.bag @ 12 UNITS/KG/HR 9.253 mls/hr IV .Q24H [facility] Rx#: [id number] Nitroglycerin-D5w Pmx 50 6.95 mg In Dextrose/Water 1 250ml.bag @ 10 MCG/MIN 3 mls/hr IV .Q24H [facility] Rx#: [id number] Output: Urine 950 - Constitutional General appearance: Present: no acute distress - Respiratory Respiratory: bilateral: CTA - Cardiovascular Rhythm: regular Heart sounds: normal: S1, S2 - Labs CBC & Chem 7: 03/19/21 03:54 03/19/21 03:54 Labs: Abnormal Lab Results - Last 24 Hours (Table) 03/18/21 03/18/21 03/18/21 Range/Units 20:57 20:57 20:57 WBC 14.4 H (3.8-10.6) k/uL Plt Count (150-450) k/uL Lymphocytes # (Manual) 7.49 H (1.0-4.8) k/uL D-Dimer 0.72 H (<0.60) mg/L FEU Sodium (137-145) mmol/L Potassium 3.3 L (3.5-5.1) mmol/L Glucose 130 H (74-99) mg/dL POC Glucose (mg/dL) (75-99) mg/dL AST 38 H (14-36) U/L Troponin I (0.000-0.034) ng/mL 03/19/21 03/19/21 03/19/21 Range/Units 00:06 00:32 03:54 WBC (3.8-10.6) k/uL Plt Count (150-450) k/uL Lymphocytes # (Manual) (1.0-4.8) k/uL D-Dimer (<0.60) mg/L FEU Sodium 136 L (137-145) mmol/L Potassium (3.5-5.1) mmol/L Glucose 100 H (74-99) mg/dL POC Glucose (mg/dL) 104 H (75-99) mg/dL AST (14-36) U/L Troponin I 2.570 H* (0.000-0.034) ng/mL 03/19/21 03/19/21 Range/Units 03:54 03:54 WBC (3.8-10.6) k/uL Plt Count 148 L (150-450) k/uL Lymphocytes # (Manual) (1.0-4.8) k/uL D-Dimer (<0.60) mg/L FEU Sodium (137-145) mmol/L Potassium (3.5-5.1) mmol/L Glucose (74-99) mg/dL POC Glucose (mg/dL) (75-99) mg/dL AST (14-36) U/L Troponin I 12.800 H* (0.000-0.034) ng/mL Assessment and Plan Assessment: Assessment #1 acute coronary syndrome #2 status post PCI of the SVG to diagonal #3 large thrombus burden involving the SVG to diagonal #4 hypertension #5 dyslipidemia Plan #1 continue Aggrastat for a total of 12 hours #2 continue dual antiplatelet therapy #3 continue high intensity statin #4 follow-up on the echocardiogram #5 follow-up with the patient
[2021-03-19] MEDS ORDERED: ASPIRIN 325 MG TAB PO SCH (09:00)
[2021-03-19] MEDS: ASPIRIN 81 MG PO SCH (09:56)
[2021-03-19] MEDS: ATORVASTATIN 80 MG TAB PO SCH (09:56)
[2021-03-19] MEDS: TICAGRELOR 90 MG TAB PO SCH ×2 (09:57→20:09)
[2021-03-19] MEDS: METOPROLOL TARTRATE 12.5 MG TAB PO SCH ×2 (09:57→20:09)
[2021-03-19] MEDS: LOSARTAN 50 MG TAB PO SCH (09:57)
[2021-03-19] MEDS: FUROSEMIDE 20 MG TAB PO SCH (10:42)
[2021-03-19 11:44] LABS: Chol/HDL Ratio 5.93; Cholesterol 249 mg/dL (0-200); LDL Cholesterol,Calculated 160.4 mg/dL (0.0-131.0)
[2021-03-19] MEDS ORDERED: ALBUTEROL HFA INHALER INHALATION PRN (13:07)
--- NOTE | 2021-03-19 13:09 | P.HPIM ---
History of Present Illness H&P Date: 03/19/21 Chief Complaint: Chest pain This is a 70-year-old white female well-known the practice with history coronary artery disease and history of quadruple bypass in 2016. She also had a stent placement last year. She began experiencing chest squeezing and pressure yesterday afternoon. It worsened and she developed nausea and began sweating. Her daughter called EMS and she was brought to the hospital. She was found to have prominent R waves along with ST elevations in V1 and V2. She is diagnosed with acute myocardial infarction to the [place] T[place]. She is now resting comfor tably in the intensive care unit. She is status post PTCA and stent of the SVG to diagonal branch. Currently she has no complaints of chest pains pressures shortness of breath. She denies any nausea or vomiting. Vitals are stable including blood pressure. Her troponin is elevated to 12.8 this morning. It is most recently 11.2 as of noon today. Review of Systems All systems: negative Past Medical History Past Medical History: Asthma, Chest Pain / Angina, COPD, GERD/Reflux, Hyperlipidemia, Hypertension, Osteoarthritis (OA) Additional Past Medical History / Comment(s): MIGRAINE HEADACHE,GLAUCOMA, SEE DR MILLS'S HISTORY AND PHYSICAL FOR CARDIAC HISTORY, SHORTNESS OF BREATH WITH EXERTION History of Any Multi-Drug Resistant Organisms: None Reported Past Surgical History: Cholecystectomy, Coronary Bypass/CABG, Heart Catheterization, Heart Catheterization With Stent Additional Past Surgical History / Comment(s): FRONTAL SINUS SURGERY-TUMOR OF THE BONE X3 Past Anesthesia/Blood Transfusion Reactions: No Reported Reaction Additional Past Anesthesia/Blood Transfusion Reaction / Comment(s): "WOKE UP DURING SURGERY" ONCE Date of Last Stent Placement:: 03/19/21 Past Psychological History: No Psychological Hx Reported Smoking Status: Former smoker Past Alcohol Use History: None Reported Additional Past Alcohol Use History / Comment(s): STARTED SMOKING AT AGE 17 QUIT SMOKING AT AGE 44 SMOKED 2-3PPD Past Drug Use History: None Reported - Past Family History Mother Family Medical History: No Reported History Father Family Medical History: Cancer Medications and Allergies Home Medications Medication Instructions Recorded Confirmed Type Aspirin EC [Ecotrin Low Dose] 81 mg PO HS 10/07/20 03/18/21 History Ezetimibe [Zetia] 10 mg PO DAILY 10/07/20 03/18/21 History Furosemide [Lasix] 20 mg PO DAILY 10/07/20 03/18/21 History Metoprolol Tartrate [Lopressor] 12.5 mg PO DAILY 10/07/20 03/18/21 History Multivit-Min/FA/Lycopen/Lutein 1 tab PO DAILY 10/07/20 03/18/21 History [Centrum Silver Tablet] Potassium Chloride ER [K-Dur 10] 10 meq PO DAILY 10/07/20 03/18/21 History Prasugrel HCl [Effient] 5 mg PO HS 10/07/20 03/18/21 History Albuterol Inhaler [Ventolin Hfa 1 puff INHALATION RT-QID PRN 03/18/21 03/18/21 History Inhaler] Amoxicillin 500mg Tablet 500 mg PO Q8H 03/18/21 03/18/21 History DULoxetine HCL [Cymbalta] 20 mg PO DAILY 03/18/21 03/18/21 History Ibuprofen [Motrin] 800 mg PO TID PRN 03/18/21 03/18/21 History Omeprazole 40 mg PO DAILY 03/18/21 03/18/21 History Allergies Allergy/AdvReac Type Severity Reaction Status Date / Time gabapentin [From Neurontin] AdvReac Hallucinati Verified 10/07/20 12:20 ons Physical Exam Vitals: Vital Signs Temp Pulse Pulse Resp BP Pulse Ox 03/19/21 12:00 98.4 F 73 13 122/77 97 03/19/21 11:00 60 21 119/61 98 03/19/21 10:00 75 13 111/63 98 03/19/21 09:00 61 14 119/71 97 03/19/21 08:00 98.7 F 64 16 113/73 98 03/19/21 07:00 71 18 117/56 97 03/19/21 06:00 84 15 117/56 97 03/19/21 05:00 51 L 13 122/72 96 03/19/21 04:00 98 F 61 10 L 121/64 98 03/19/21 03:00 62 21 121/72 98 03/19/21 02:00 66 19 135/72 95 03/19/21 01:00 73 15 136/74 98 03/19/21 00:12 61 21 03/19/21 00:10 97.7 F 60 12 136/74 97 03/18/21 21:45 65 18 127/71 99 03/18/21 21:19 55 L 20 114/67 99 03/18/21 21:02 59 L 03/18/21 20:51 97.7 F 66 18 120/66 100 Intake and Output 03/18/21 03/19/21 03/19/21 22:59 06:59 14:59 Intake Total 120 628.232 675 Output Total 950 1450 Balance 120 -321.768 -775 Intake: IV 120 600 375 Sodium Chloride 0.9% 1, 600 375 000 ml @ 75 mls/hr IV . [id number] [facility] Rx#:[id number] Intake, IV Titration 28.232 Amount Heparin Sod,Pork in 0.45% 21.282 NaCl 25,000 unit In 0.45 % NaCl 1 250ml.bag @ 12 UNITS/KG/HR 9.253 mls/hr IV .Q24H [facility] Rx#: [id number] Nitroglycerin-D5w Pmx 50 6.95 mg In Dextrose/Water 1 250ml.bag @ 10 MCG/MIN 3 mls/hr IV .Q24H [facility] Rx#: [id number] Oral 300 Output: Urine 950 1450 Other: Weight 77.111 kg 74.7 kg GENERAL: Well-appearing, thin and in no acute distress. HEAD: Atraumatic, normocephalic. EYES: Pupils equal round and reactive to light, extraocular movements intact, sclera anicteric, conjunctiva are normal. ENT:nares patent, oropharynx clear without exudates. Moist mucous membranes. NECK: Normal range of motion, supple without lymphadenopathy or JVD, no thyromegaly LUNGS: Breath sounds coarse to auscultation bilaterally and equal. No wheezes rales or rhonchi. HEART: Regular rate and rhythm without murmurs, rubs or gallops.S1S2 Normal ABDOMEN: Soft, nontender, normoactive bowel sounds. No guarding, no rebound. No masses appreciated. EXTREMITIES: Normal range of motion, no pitting or edema. No clubbing or cy anosis. NEUROLOGICAL: Cranial nerves II through XII grossly intact. Normal speech, normal gait. PSYCH: Normal mood, normal affect. SKIN: Warm, Dry, normal turgor, no rashes or lesions noted. Results CBC & Chem 7: 03/19/21 03:54 03/19/21 03:54 Labs: Abnormal Lab Results - Last 24 Hours (Table) 03/18/21 03/18/21 03/18/21 Range/Units 20:57 20:57 20:57 WBC 14.4 H (3.8-10.6) k/uL Plt Count (150-450) k/uL Lymphocytes # (Manual) 7.49 H (1.0-4.8) k/uL D-Dimer 0.72 H (<0.60) mg/L FEU Sodium (137-145) mmol/L Potassium 3.3 L (3.5-5.1) mmol/L Glucose 130 H (74-99) mg/dL POC Glucose (mg/dL) (75-99) mg/dL AST 38 H (14-36) U/L Troponin I (0.000-0.034) ng/mL Triglycerides (0.0-149.0) mg/dL Cholesterol (0-200) mg/dL LDL Cholesterol, Calc (0.0-131.0) mg/dL VLDL Cholesterol, Calc (5.00-40.00) mg/dL 03/19/21 03/19/21 03/19/21 Range/Units 00:06 00:32 03:54 WBC (3.8-10.6) k/uL Plt Count (150-450) k/uL Lymphocytes # (Manual) (1.0-4.8) k/uL D-Dimer (<0.60) mg/L FEU Sodium 136 L (137-145) mmol/L Potassium (3.5-5.1) mmol/L Glucose 100 H (74-99) mg/dL POC Glucose (mg/dL) 104 H (75-99) mg/dL AST (14-36) U/L Troponin I 2.570 H* (0.000-0.034) ng/mL Triglycerides 233.0 H (0.0-149.0) mg/dL Cholesterol 249 H (0-200) mg/dL LDL Cholesterol, Calc 160.4 H (0.0-131.0) mg/dL VLDL Cholesterol, Calc 46.60 H (5.00-40.00) mg/dL 03/19/21 03/19/21 Range/Units 03:54 03:54 WBC (3.8-10.6) k/uL Plt Count 148 L (150-450) k/uL Lymphocytes # (Manual) (1.0-4.8) k/uL D-Dimer (<0.60) mg/L FEU Sodium (137-145) mmol/L Potassium (3.5-5.1) mmol/L Glucose (74-99) mg/dL POC Glucose (mg/dL) (75-99) mg/dL AST (14-36) U/L Troponin I 12.800 H* (0.000-0.034) ng/mL Triglycerides (0.0-149.0) mg/dL Cholesterol (0-200) mg/dL LDL Cholesterol, Calc (0.0-131.0) mg/dL VLDL Cholesterol, Calc (5.00-40.00) mg/dL Chest x-ray: report reviewed Thrombosis Risk Factor Assmnt - DVT/VTE Prophylaxis DVT/VTE Prophylaxis: Pharmacologic Prophylaxis ordered - Choose All That Apply Any of the Below Risk Factors Present?: Yes Each Factor Represents 1 point: Abnormal pulmonary function (COPD), Acute CA Other Risk Factors: Yes Each Risk Factor Represents 2 Points: Age 61-74 years Thrombosis Risk Factor Assessment Total Risk Factor Score: 4 Thrombosis Risk Factor Assessment Level: Moderate Risk Assessment and Plan (1) Acute coronary syndrome Current Visit: Yes Status: Acute Code(s): I24.9 - ACUTE ISCHEMIC HEART DISEASE, UNSPECIFIED SNOMED Code(s): 502785918 (2) CAD (coronary artery disease), [place] coronary artery Current Visit: No Status: Acute Code(s): I25.10 - ATHSCL HEART DISEASE OF [place] CORONARY ARTERY W/O ANG PCTRS SNOMED Code(s): 244680508 (3) Chest pain Current Visit: No Status: Acute Code(s): R07.9 - CHEST PAIN, UNSPECIFIED SNOMED Code(s): 13970245 (4) History of coronary artery bypass graft Current Visit: No Status: Acute Code(s): Z95.1 - PRESENCE OF AORTOCORONARY BYPASS GRAFT SNOMED Code(s): 688798473 (5) Hypercholesterolemia Current Visit: No Status: Acute Code(s): E78.00 - PURE HYPERCHOLESTEROLEMIA, UNSPECIFIED SNOMED Code(s): 72913759 (6) S/P coronary artery stent placement Current Visit: No Status: Acute Code(s): Z95.5 - PRESENCE OF CORONARY ANGIOPLASTY IMPLANT AND GRAFT SNOMED Code(s): 378965606 Plan: Currently she is chest pain-free, we'll await on further recommendations from cardiology. Repeat labs in a.m. Due to her recent chest pain this morning, she may remain in the intensive care unit to be transferred to stepdown this time. We'll restarted duloxetine and omeprazole. Reevaluate her in the next 24 hours.
[2021-03-19] MEDS: DULoxetine HCL 20 MG CAPSULE.DR PO SCH (14:22)
[2021-03-19] MEDS: PANTOPRAZOLE 40 MG TABLET PO SCH (14:22)
[2021-03-19 20:28] LABS: Appearance,Urine Clear (Clear); Bilirubin,Urine Negative (Negative); Blood,Urine Negative (Negative); Color,Urine Light Yellow; Glucose,Urine (UA) Negative (Negative); Ketones,Urine Negative (Negative); Leukocyte Esterase,Urine Negative (Negative); Nitrite,Urine Negative (Negative); PH, Urine 7.5 (5.0-8.0); Protein,Urine Negative (Negative); Specific Gravity,Urine 1.015 (1.001-1.035); Urobilinogen,Urine <2.0 mg/dL (<2.0)
[2021-03-19] MEDS: SODIUM CHLORIDE 0.9% 1,000 ML IV SCH (22:39)
[2021-03-20] MEDS: PANTOPRAZOLE 40 MG TABLET PO SCH (06:36)
[2021-03-20] MEDS: ACETAMINOPHEN TAB 325 MG TAB PO PRN (08:28)
[2021-03-20] MEDS: DULoxetine HCL 20 MG CAPSULE.DR PO SCH ×2 (08:29→17:09)
[2021-03-20] MEDS: ATORVASTATIN 80 MG TAB PO SCH (08:29)
[2021-03-20] MEDS: FUROSEMIDE 20 MG TAB PO SCH (08:29)
[2021-03-20] MEDS: TICAGRELOR 90 MG TAB PO SCH ×2 (08:29→19:39)
[2021-03-20] MEDS: METOPROLOL TARTRATE 12.5 MG TAB PO SCH ×2 (08:29→19:39)
[2021-03-20] MEDS: LOSARTAN 50 MG TAB PO SCH (08:29)
[2021-03-20] MEDS: ASPIRIN 81 MG PO SCH (08:29)
[2021-03-20] MEDS: SODIUM CHLORIDE 0.9% 1,000 ML IV SCH (08:30)
--- NOTE | 2021-03-20 10:02 | P.PN ---
Subjective This is a 70-year-old white female well-known the practice with history coronary artery disease and history of quadruple bypass in 2016. She also had a stent placement last year. She began experiencing chest squeezing and pressure yesterday afternoon. It worsened and she developed nausea and began sweating. Her daughter called EMS and she was brought to the hospital. She was found to have prominent R waves along with ST elevations in V1 and V2. She is diagnosed with acute myocardial infarction to the [place]. She is now resting comfor tably in the intensive care unit. She is status post PTCA and stent of the SVG to diagonal branch. Currently she has no complaints of chest pains pressures shortness of breath. She denies any nausea or vomiting. Vitals are stable including blood pressure. Her troponin is elevated to 12.8 this morning. It is most recently 11.2 as of noon today. 03/20/2021: Patient is resting comfortably on the stepdown unit. She has no complaints of chest pain past 24 hours. She has some mild shortness of breath with exertion. She denies any nausea, vomiting, diarrhea, or constipation. She did complain of some mild left flank pain that is since resolved as well. Vital signs remained stable. Temperature a pulse oximetry heart rate and blood pressure within normal limits. She did complain of some urinary urgency last night. It is since resolved. A urinalysis was normal. Objective - Vital Signs Vital signs: Vital Signs Temp 96.6 F L 03/20/21 08:20 Pulse 92 03/20/21 08:20 Resp 16 03/20/21 08:20 BP 116/57 03/20/21 08:20 Pulse Ox 98 03/20/21 08:20 Intake & Output 03/19/21 03/20/21 03/20/21 18:59 06:59 18:59 Intake Total 825 360 Output Total 2049 Balance -1225 360 Weight 71.8 kg Intake: IV 525 Sodium Chloride 0.9% 1, 525 000 ml @ 75 mls/hr IV . [id number] [facility] Rx#:[id number] Oral 300 360 Output: Urine 2049 Other: Voiding Method Toilet # Voids 3 - Exam GENERAL: Well-appearing, thin and in no acute distress NECK: Normal range of motion, supple without lymphadenopathy or JVD, no th yromegaly LUNGS: Breath sounds coarse to auscultation bilaterally and equal. No wheezes rales or rhonchi. HEART: Regular rate and rhythm without murmurs, rubs or gallops.S1S2 Normal ABDOMEN: Soft, nontender, normoactive bowel sounds. No guarding, no rebound. No masses appreciated. EXTREMITIES: Normal range of motion, no pitting or edema. No clubbing or cyanosis. NEUROLOGICAL: Cranial nerves II through XII grossly intact. Normal speech, normal gait. PSYCH: Normal mood, normal affect. SKIN: Warm, Dry, normal turgor, no rashes or lesions noted. - Labs CBC & Chem 7: 03/19/21 03:54 03/19/21 03:54 Labs: Abnormal Lab Results - Last 24 Hours (Table) 03/19/21 03/19/21 Range/Units 03:54 12:14 Troponin I 11.200 H* (0.000-0.034) ng/mL Triglycerides 233.0 H (0.0-149.0) mg/dL Cholesterol 249 H (0-200) mg/dL LDL Cholesterol, Calc 160.4 H (0.0-131.0) mg/dL VLDL Cholesterol, Calc 46.60 H (5.00-40.00) mg/dL Assessment and Plan (1) S/P coronary artery stent placement Current Visit: No Status: Acute Code(s): Z95.5 - PRESENCE OF CORONARY ANGIOPLASTY IMPLANT AND GRAFT SNOMED Code(s): 827044539 (2) Acute coronary syndrome Current Visit: Yes Status: Acute Code(s): I24.9 - ACUTE ISCHEMIC HEART DISEASE, UNSPECIFIED SNOMED Code(s): 204279517 (3) CAD (coronary artery disease), [place] coronary artery Current Visit: No Status: Acute Code(s): I25.10 - ATHSCL HEART DISEASE OF [place] CORONARY ARTERY W/O ANG PCTRS SNOMED Code(s): 029419872 (4) Chest pain Current Visit: No Status: Acute Code(s): R07.9 - CHEST PAIN, UNSPECIFIED SNOMED Code(s): 14894857 (5) History of coronary artery bypass graft Current Visit: No Status: Acute Code(s): Z95.1 - PRESENCE OF AORTOCORONARY BYPASS GRAFT SNOMED Code(s): 373698272 (6) Hypercholesterolemia Current Visit: No Status: Acute Code(s): E78.00 - PURE HYPERCHOLESTEROLEMIA, UNSPECIFIED SNOMED Code(s): 12522988 Plan: Currently she is chest pain-free, we'll await on further recommendations from cardiology. Repeat labs in a.m. Continue her current meds as ordered. Reevaluate her in the next 24 hours.
--- NOTE | 2021-03-20 10:34 | ECHOF ---
Referral Reason:s/p heart cath with stent placement MEASUREMENTS -------- HEIGHT: 162.6 cm WEIGHT: 74.4 kg BP: 117/56 IVSd: 1.2 cm (0.6 - 1.1) LVIDd: 4.5 cm (3.9 - 5.3) LVPWd: 1.1 cm (0.6 - 1.1) EDV(Teich): 93 ml IVSs: 1.4 cm LVIDs: 3.6 cm LVPWs: 1.5 cm %IVS Thck: 17 % ESV(Teich): 56 ml EF(Teich): 40 % %FS: 20 % SV(Teich): 38 ml LA Diam: 3.4 cm (2.7 - 3.8) RVIDd: 2.5 cm (< 3.3) LALs A4C: 4.2 cm LAAs A4C: 12.5 cm LAESV A-L A4C: 32 ml LAESV MOD A4C: 30 ml LALs A2C: 4.6 cm LAAs A2C: 10.6 cm LAESV A-L A2C: 21 ml LAESV MOD A2C: 21 ml LAESV(A-L): 27 ml LAESV Index (A-L): 15.06 ml/m HR_2Ch_Q: 65 bpm HR_4Ch_Q: 64 bpm LVVED_2Ch_Q: 84 ml LVVED_4Ch_Q: 80 ml LVVED_BiP_Q: 82 ml LVVES_2Ch_Q: 50 ml LVVES_4Ch_Q: 38 ml LVVES_BiP_Q: 43 ml LVEF_2Ch_Q: 40 % LVEF_4Ch_Q: 53 % LVEF_BiP_Q: 47 % LVSV_2Ch_Q: 33 ml LVSV_4Ch_Q: 43 ml LVSV_BiP_Q: 39 ml LVCO_2Ch_Q: 2.2 l/min LVCO_4Ch_Q: 2.7 l/min LVCO_BiP_Q: 2.5 l/min LVLs_2Ch_Q: 6.9 cm LVLs_4Ch_Q: 6.1 cm LVLd_2Ch_Q: 7.9 cm LVLd_4Ch_Q: 7.2 cm Ao Diam: 3.2 cm (2.0 - 3.7) AV Cusp: 2.0 cm (1.5 - 2.6) EPSS: 1.6 cm MV E Luis: 0.81 m/s MV DecT: 237 ms MV Dec [place]: 3.4 m/s MV A Luis: 0.62 m/s MV E/A Ratio: 1.32 MV PHT: 69 ms AV Vmax: 0.89 m/s AV maxP.15 mmHg TR Vmax: 2.37 m/s TR maxP.49 mmHg RAP: 5.00 mmHg RVSP: 27.49 mmHg MV EF SLOPE: 171.14 mm/s (70 - 150) MV EXCURSION: 21.43 mm (> 18.000) FINDINGS -------- Sinus rhythm. This was a technically adequate study. The left ventricular size is normal. There is borderline concentric left ventricular hypertrophy. Overall left ventricular systolic function is mild-moderately impaired with, an EF between 40 - 45 % . Basal anterior LV wall motion is hypokinetic. Mid anterior LV wall motion is hypokinetic. M id inferoseptal LV wall motion is hypokinetic. Apical anterior LV wall motion is hypokinetic. A pical septum LV wall motion is hypokinetic. The right ventricle is normal in size. Normal LA size by volume 22+/-6 ml/m2. The right atrium is normal in size. Interatrial and interventricular septum intact. There is mild aortic valve sclerosis. The mitral valve leaflets are mildly thickened. Mild mitral annular calcification present. There is trace mitral regurgitation. Mild tricuspid regurgitation present. Right ventricular systolic pressure is normal at < 35 mmHg. Trace/mild (physiologic) pulmonic regurgitation. The aortic root size is normal. IVC Not well visulized. There is no pericardial effusion. CONCLUSIONS -------- 1. The left ventricular size is normal. 2. There is borderline concentric left ventricular hypertrophy. 3. Overall left ventricular systolic function is mild-moderately impaired with, an EF between 40 - 45 %. 4. Basal anterior LV wall motion is hypokinetic. 5. Mid anterior LV wall motion is hypokinetic. 6. Mid inferoseptal LV wall motion is hypokinetic. 7. Apical anterior LV wall motion is hypokinetic. 8. Apical septum LV wall motion is hypokinetic. 9. There is mild aortic valve sclerosis. 10. The mitral valve leaflets are mildly thickened. 11. Mild mitral annular calcification present. 12. There is trace mitral regurgitation. 13. Mild tricuspid regurgitation present. 14. Trace/mild (physiologic) pulmonic regurgitation. 15. There is no pericardial effusion. SCREEN MACHINE OPERATOR: Maryellen Daniel RDCS
[2021-03-20 11:29] LABS: Basophils % (A) 0 %; Eosinophils # (A) 0.1 k/uL (0-0.7); Eosinophils % (A) 1 %; HCT 39.9 % (34.0-46.0); HGB 13.1 gm/dL (11.4-16.0); Lymphocytes # (A) 2.1 k/uL (1.0-4.8); Lymphocytes % (A) 30 %; MCH 28.5 pg (25.0-35.0); MCHC 32.8 g/dL (31.0-37.0); Mean Platelet Volume 7.8; Monocytes # (A) 0.5 k/uL (0-1.0); Monocytes % (A) 8 %; Neutrophils # (A) 4.1 k/uL (1.3-7.7); Neutrophils % (A) 59 %; Platelet Count 166 k/uL (150-450); RBC 4.58 m/uL (3.80-5.40); RDW 13.2 % (11.5-15.5)
[2021-03-20 11:48] LABS: Calcium 9.5 mg/dL (8.4-10.2); Potassium 4.1 mmol/L (3.5-5.1)
--- NOTE | 2021-03-20 12:46 | P.PN ---
Subjective Progress Note Date: 03/20/21 This is a very pleasant 70-year-old female patient was coronary artery disease and prior coronary artery bypass grafting as well as hypertension and dyslipidemia who presented to the hospital with chest discomfort and underwent an emergent heart catheterization by Dr. Sanon and that revealed severe [place] triple-vessel coronary artery disease with patent FOOTE to LAD and patent SVG to OM with acute occlusion of the SVG to diagonal. The patient underwent successful stenting of that graft. She was found to have large thrombus burden. The patient is resting comfortably in bed. She states she got up and ambulated to the bathroom without issue. She denies any chest pain or shortness of breath. No palpitations, dizziness, lightheadedness. The patient states she has not yet ambulated in the [place]. I do recommend she ambulate throughout the day to assess for any chest discomfort. Recent echocardiogram shows LV function of 45% with anterior wall hypokinesis GENERAL: Well-appearing, well-nourished and in no acute distress. NECK: Supple without JVD or thyromegaly. LUNGS: Breath sounds clear to auscultation bilaterally. Respiration equal and unlabored. No wheezes, rales or rhonchi. HEART: Regular rate and rhythm without murmurs, rubs or gallops. S1 and S2 heard. EXTREMITIES: Normal range of motion, no edema. No clubbing or cyanosis. Peripheral pulses intact and strong. VITALS: Blood pressure 121/66, pulse 62, respiratory rate 16, SPO2 98% TELEMETRY: Sinus mechanism with heart rates in the 60s LABS: WBC 7.0, hemoglobin 13.1, hematocrit 39.9, platelet 166, sodium 140, potassium 4.1, BUN 9, creatinine 0.8, TSH 2.44 IMPRESSION: Acute coronary syndrome Coronary artery disease, PCI of SVG to diagonal, large thrombus burden Ischemic cardiomyopathy, recent EF 45% with anterior wall hypokinesis Hypertension Dyslipidemia PLAN: Encouraged patient to ambulate throughout the day Further recommendations based on clinical course The patient has been seen and evaluated. Plan of care has been reviewed and agreed upon by Dr Hilliard. Objective - Vital Signs Vital signs: Vital Signs Temp 97.9 F 03/20/21 11:50 Pulse 62 03/20/21 11:50 Resp 16 03/20/21 11:50 BP 121/66 03/20/21 11:50 Pulse Ox 98 03/20/21 11:50 Intake & Output 03/19/21 03/20/21 03/20/21 18:59 06:59 18:59 Intake Total 825 360 Output Total 205 Balance -1225 360 Weight 71.8 kg Intake: IV 525 Sodium Chloride 0.9% 1, 525 000 ml @ 75 mls/hr IV . [id number] [facility] Rx#:[id number] Oral 300 360 Output: Urine 2049 Other: Voiding Method Toilet # Voids 3 - Labs CBC & Chem 7: 03/20/21 11:00 03/20/21 11:00 Labs: Abnormal Lab Results - Last 24 Hours (Table) 03/19/21 03/20/21 Range/Units 12:14 11:00 Chloride 109 H (98-107) mmol/L Glucose 116 H (74-99) mg/dL Troponin I 11.200 H* (0.000-0.034) ng/mL
[2021-03-20] MEDS ORDERED: SODIUM CHLORIDE 0.65% NASAL SPRAY 44 ML BTL NASAL PRN (16:05)
[2021-03-20] MEDS: LORATADINE 10 MG TAB PO SCH (17:06)
[2021-03-21] MEDS: SODIUM CHLORIDE 0.9% 1,000 ML IV SCH (05:21)
[2021-03-21] MEDS: PANTOPRAZOLE 40 MG TABLET PO SCH (06:36)
[2021-03-21 08:10] LABS: Basophils % (A) 0 %; Eosinophils # (A) 0.1 k/uL (0-0.7); Eosinophils % (A) 1 %; HCT 39.1 % (34.0-46.0); HGB 12.8 gm/dL (11.4-16.0); Lymphocytes # (A) 2.4 k/uL (1.0-4.8); Lymphocytes % (A) 32 %; MCH 28.3 pg (25.0-35.0); MCHC 32.8 g/dL (31.0-37.0); MCV 86.3 fL (80.0-100.0); Mean Platelet Volume 7.6; Monocytes # (A) 0.5 k/uL (0-1.0); Monocytes % (A) 6 %; Neutrophils # (A) 4.4 k/uL (1.3-7.7); Neutrophils % (A) 59 %; Platelet Count 165 k/uL (150-450); RBC 4.53 m/uL (3.80-5.40); RDW 13.4 % (11.5-15.5); WBC 7.4 k/uL (3.8-10.6)
[2021-03-21 08:29] LABS: Potassium 3.9 mmol/L (3.5-5.1)
[2021-03-21 08:30] LABS: Calcium 9.3 mg/dL (8.4-10.2); Magnesium 1.6 mg/dL (1.6-2.3)
[2021-03-21] MEDS: METOPROLOL TARTRATE 12.5 MG TAB PO SCH (09:07)
[2021-03-21] MEDS: LORATADINE 10 MG TAB PO SCH (09:07)
[2021-03-21] MEDS: ASPIRIN 81 MG PO SCH (09:07)
[2021-03-21] MEDS: FUROSEMIDE 20 MG TAB PO SCH (09:07)
[2021-03-21] MEDS: ATORVASTATIN 80 MG TAB PO SCH (09:07)
[2021-03-21] MEDS: TICAGRELOR 90 MG TAB PO SCH (09:07)
[2021-03-21] MEDS: LOSARTAN 50 MG TAB PO SCH (09:08)
[2021-03-21] MEDS: DULoxetine HCL 20 MG CAPSULE.DR PO SCH (09:08)
--- NOTE | 2021-03-21 12:20 | P.PN ---
Subjective Progress Note Date: 03/21/21 This is a very pleasant 70-year-old female patient was coronary artery disease and prior coronary artery bypass grafting as well as hypertension and dyslipidemia who presented to the hospital with chest discomfort and underwent an emergent heart catheterization by Dr. Sanon and that revealed severe [place] triple-vessel coronary artery disease with patent FOOTE to LAD and patent SVG to OM with acute occlusion of the SVG to diagonal. The patient underwent successful stenting of that graft. She was found to have large thrombus burden. The patient is resting comfortably in bed. She has been up ambulating around her room and in the hallway since yesterday. She denies any chest pain or shortness of breath. No palpitations, dizziness, lightheadedness. Recent echocardiogram shows LV function of 45% with anterior wall hypokinesis GENERAL: Well-appearing, well-nourished and in no acute distress. NECK: Supple without JVD or thyromegaly. LUNGS: Breath sounds clear to auscultation bilaterally. Respiration equal and unlabored. No wheezes, rales or rhonchi. HEART: Regular rate and rhythm without murmurs, rubs or gallops. S1 and S2 heard. EXTREMITIES: Normal range of motion, no edema. No clubbing or cyanosis. Peripheral pulses intact and strong. Groin site clean, dry, and intact VITALS: Blood pressure 121/66, pulse 62, respiratory rate 16, SPO2 98% TELEMETRY: Sinus mechanism with heart rates in the 80s to 90s. LABS: WBC 7.4, hemoglobin 12.8, hematocrit 39.1, platelet 165, sodium 138, potassium 3.9, BUN 11, creatinine 0.80 IMPRESSION: Acute coronary syndrome Coronary artery disease, PCI of SVG to diagonal, large thrombus burden Ischemic cardiomyopathy, recent EF 45% with anterior wall hypokinesis Hypertension Dyslipidemia PLAN: Increase beta rena to 25 mg twice daily Patient may be discharged from the cardiac standpoint and follow up with primary anesthesiology fellow in 1-2 weeks The patient has been seen and evaluated. Plan of care has been reviewed and agreed upon by Dr Hilliard. Objective - Vital Signs Vital signs: Vital Signs Temp 97.6 F 03/21/21 08:25 Pulse 106 H 03/21/21 08:25 Resp 16 03/21/21 08:25 BP 110/67 03/21/21 08:25 Pulse Ox 97 03/21/21 08:25 Intake & Output 03/20/21 03/21/21 03/21/21 18:59 06:59 18:59 Intake Total 840 360 Output Total 400 Balance 840 -40 Weight 71.5 kg Intake: Oral 840 360 Output: Urine 400 Other: Voiding Method Toilet # Voids 2 2 - Labs CBC & Chem 7: 03/21/21 07:46 03/21/21 07:46 Labs: Abnormal Lab Results - Last 24 Hours (Table) 03/21/21 Range/Units 07:46 Glucose 112 H (74-99) mg/dL
[2021-03-21 12:28] VITALS: BP 132/60; PULSE 75; RESP 18; TEMP 98.2
--- NOTE | 2021-03-21 12:34 | P.DS ---
Providers Date of admission: 03/18/21 21:43 Expected date of discharge: 03/21/21 Attending physician: Yann Sena Consults: 03/18/21 21:43 Consult Physician Urgent Consulting Provider: [facility] Consult Reason/Comments: NSTEMI Do you want consulting provider notified?: Already Contacted Primary care physician: Yann Sena - Discharge Diagnosis(es) (1) Acute coronary syndrome Current Visit: Yes Status: Acute (2) CAD (coronary artery disease) Current Visit: No Status: Acute (3) CAD (coronary artery disease), [place] coronary artery Current Visit: No Status: Acute (4) Chest pain Current Visit: No Status: Acute (5) History of coronary artery bypass graft Current Visit: No Status: Acute (6) Hypercholesterolemia Current Visit: No Status: Acute (7) S/P coronary artery stent placement Current Visit: No Status: Acute Hospital Course: Patient admitted on 03/18/2021 for chest pain, his past medical history of bypass graft and stent placement. Patient prescription report a pressure-like in the center of her chest wrapped around to bilateral back and then up to her right neck. Patient was taken for emergent heart catheterization in which there is a [place] triple-vessel coronary artery disease with patent FOOTE to LAD and patent SVG to OM with acute occlusion of the SVG to diagonal. There was successful stenting of the graft. Patient Condition at Discharge: Stable Plan - Discharge Summary Discharge Rx Participant: No New Discharge Prescriptions: New Aspirin 81 mg PO DAILY chew Loratadine [Claritin] 10 mg PO DAILY 30 Days #30 tab Losartan [Cozaar] 50 mg PO DAILY 30 Days #30 tab Furosemide [Lasix] 20 mg PO DAILY tab Atorvastatin [Lipitor] 80 mg PO DAILY 30 Days #30 tab Metoprolol Tartrate [Lopressor] 12.5 mg PO BID tab Acetaminophen Tab [Tylenol] 650 mg PO Q6HR PRN tab PRN Reason: Fever And/ Or Pain Ticagrelor [Brilinta] 90 mg PO BID 30 Days #60 tab Continue Multivit-Min/FA/Lycopen/Lutein [Centrum Silver Tablet] 1 tab PO DAILY Potassium Chloride ER [K-Dur 10] 10 meq PO DAILY Aspirin EC [Ecotrin Low Dose] 81 mg PO HS Metoprolol Tartrate [Lopressor] 12.5 mg PO DAILY Furosemide [Lasix] 20 mg PO DAILY Ezetimibe [Zetia] 10 mg PO DAILY Amoxicillin 500mg Tablet 500 mg PO Q8H Albuterol Inhaler [Ventolin Hfa Inhaler] 1 puff INHALATION RT-QID PRN PRN Reason: Shortness Of Breath Omeprazole 40 mg PO DAILY Ibuprofen [Motrin] 800 mg PO TID PRN PRN Reason: Pain DULoxetine HCL [Cymbalta] 20 mg PO DAILY Discontinued Prasugrel HCl [Effient] 5 mg PO HS Discharge Medication List Aspirin EC [Ecotrin Low Dose] 81 mg PO HS 10/07/20 [History] Ezetimibe [Zetia] 10 mg PO DAILY 10/07/20 [History] Furosemide [Lasix] 20 mg PO DAILY 10/07/20 [History] Metoprolol Tartrate [Lopressor] 12.5 mg PO DAILY 10/07/20 [History] Multivit-Min/FA/Lycopen/Lutein [Centrum Silver Tablet] 1 tab PO DAILY 10/07/20 [History] Potassium Chloride ER [K-Dur 10] 10 meq PO DAILY 10/07/20 [History] Albuterol Inhaler [Ventolin Hfa Inhaler] 1 puff INHALATION RT-QID PRN 03/18/21 [History] Amoxicillin 500mg Tablet 500 mg PO Q8H 03/18/21 [History] DULoxetine HCL [Cymbalta] 20 mg PO DAILY 03/18/21 [History] Ibuprofen [Motrin] 800 mg PO TID PRN 03/18/21 [History] Omeprazole 40 mg PO DAILY 03/18/21 [History] Acetaminophen Tab [Tylenol] 650 mg PO Q6HR PRN tab 03/21/21 [Rx] Aspirin 81 mg PO DAILY chew 03/21/21 [Rx] Atorvastatin [Lipitor] 80 mg PO DAILY 30 Days #30 tab 03/21/21 [Rx] Furosemide [Lasix] 20 mg PO DAILY tab 03/21/21 [Rx] Loratadine [Claritin] 10 mg PO DAILY 30 Days #30 tab 03/21/21 [Rx] Losartan [Cozaar] 50 mg PO DAILY 30 Days #30 tab 03/21/21 [Rx] Metoprolol Tartrate [Lopressor] 12.5 mg PO BID tab 03/21/21 [Rx] Ticagrelor [Brilinta] 90 mg PO BID 30 Days #60 tab 03/21/21 [Rx] Follow up Appointment(s)/Referral(s): Yann Sena Jr, [Primary Care Provider] - 1-2 days Yamilet Torres MD [STAFF PHYSICIAN] - 1 Week Discharge Disposition: HOME SELF-CARE
[2021-03-21] MEDS ORDERED: METOPROLOL TARTRATE 25 MG TAB PO SCH (21:00)
== END 2021-03-21 14:31 | disposition home or self-care (01) | DRG 247 ==
LOC: EC 20:49 → 2SICU 21:43 → 3SCARD 03-19 18:42
PROVIDERS: ADMIT Family Medicine; ATTEND Family Medicine
PROC: B2131ZZ Fluoroscopy of Multiple Coronary Artery Bypass Grafts using Low Osmolar Contrast (ICD-10-PCS; 2021-03-18)
PROC: B2111ZZ Fluoroscopy of Multiple Coronary Arteries using Low Osmolar Contrast (ICD-10-PCS; 2021-03-18)
PROC: 027034Z Dilation of Coronary Artery, One Artery with Drug-eluting Intraluminal Device, Percutaneous Approach (ICD-10-PCS; principal; 2021-03-18 21:58)
PROC: 4A023N7 Measurement of Cardiac Sampling and Pressure, Left Heart, Percutaneous Approach (ICD-10-PCS; 2021-03-18 21:58)
DX: I21.19 ST elevation (STEMI) myocardial infarction involving other coronary artery of inferior wall (principal); I25.810 Atherosclerosis of coronary artery bypass graft(s) without angina pectoris; Z95.1 Presence of aortocoronary bypass graft; Z79.899 Other long term (current) drug therapy; E78.5 Hyperlipidemia, unspecified; I10 Essential (primary) hypertension; J44.9 Chronic obstructive pulmonary disease, unspecified; K21.9 Gastro-esophageal reflux disease without esophagitis; M19.90 Unspecified osteoarthritis, unspecified site; I25.110 Atherosclerotic heart disease of native coronary artery with unstable angina pectoris; E78.00 Pure hypercholesterolemia, unspecified; I25.5 Ischemic cardiomyopathy; Z87.891 Personal history of nicotine dependence; I25.2 Old myocardial infarction
CPT/HCPCS: 36415; 71045; 80048; 80053; 80061; 81003; 83735; 83880; 84443; 84484; 85025; 85379; 85610; 85730; 93005; 93306; 93459; 94640; 96374; 96375; 99285

== ENCOUNTER → 2021-07-01 | Outpatient (CLI) | payer MEDICARE ==
--- NOTE | 2021-07-02 10:17 | ECHOF ---
Referral Reason:I25.10 I10 MEASUREMENTS -------- HEIGHT: 0.0 cm WEIGHT: 0.0 kg BP: RVIDd: 2.7 cm (< 3.3) IVSd: 1.2 cm (0.6 - 1.1) LVIDd: 3.7 cm (3.9 - 5.3) LVPWd: 1.2 cm (0.6 - 1.1) IVSs: 1.5 cm LVIDs: 2.4 cm LVPWs: 1.2 cm Ao Diam: 3.1 cm (2.0 - 3.7) AV Cusp: 2.0 cm (1.5 - 2.6) MV EXCURSION: 13.586 mm (> 18.000) MV EF SLOPE: 62 mm/s (70 - 150) EPSS: 0.6 cm MV E Luis: 0.51 m/s MV DecT: 385 ms MV A Luis: 0.47 m/s MV E/A Ratio: 1.10 RAP: 5.00 mmHg RVSP: 30.43 mmHg FINDINGS -------- Sinus rhythm. This was a technically adequate study. The left ventricular size is normal. There is mild concentric left ventricular hypertrophy. Overa ll left ventricular systolic function is normal with, an EF between 55 - 60 %. Septal wall motion i s delayed and consistent with prior cardiac surgery. The right ventricle is normal in size. LA is moderately dilated 34-39 ml/m2 The right atrial size is normal. Interatrial and interventricular septum intact. The aortic valve is trileaflet and appears structurally normal. There is no evidence of aortic regu rgitation. There is no evidence of aortic stenosis. Mild mitral regurgitation is present. Mild tricuspid regurgitation present. There is no evidence of pulmonary hypertension. The right v entricular systolic pressure, as measured by Doppler, is 30.43mmHg. There is no pulmonic regurgitation present. The aortic root size is normal. IVC Not well visulized. There is no pericardial effusion. CONCLUSIONS -------- 1. The left ventricular size is normal. 2. There is mild concentric left ventricular hypertrophy. 3. Overall left ventricular systolic function is normal with, an EF between 55 - 60 %. 4. Septal wall motion is delayed and consistent with prior cardiac surgery. 5. LA is moderately dilated 34-39 ml/m2 6. Mild mitral regurgitation is present. 7. Mild tricuspid regurgitation present. PLASTICS FABRICATOR: She Calderón RDCS
== END | disposition home or self-care (01) ==
LOC: RADECHMAIN 15:20
PROVIDERS: ATTEND Family Medicine
DX: I08.1 Rheumatic disorders of both mitral and tricuspid valves (principal)
CPT/HCPCS: 93306

== ENCOUNTER 2021-09-22 20:16 | Emergency (ER) | payer MEDICARE ==
[2021-09-22 21:01] VITALS: BP 126/81; PULSE 61; RESP 16; TEMP 97.9
== END 2021-09-22 22:15 | disposition left against medical advice (07) ==
LOC: EC 20:16
DX: Z53.21 Procedure and treatment not carried out due to patient leaving prior to being seen by health care provider (principal)
CPT/HCPCS: 87635; 99499

== ENCOUNTER → 2022-01-03 | Outpatient (CLI) | payer MEDICARE ==
[2022-01-03 20:41] LABS: African American GFR (CKD) 85.4 (60.0-200.0); Anion Gap 14.9 mmol/L (10.00-18.00); BUN/Creat Ratio 10.25 Ratio (12.00-20.00); Blood Urea Nitrogen 8.2 mg/dL (9.0-27.0); Calcium 9.5 mg/dL (8.7-10.3); Carbon Dioxide 23.1 mmol/L (20.0-27.5); Non-African American GFR(CKD) 73.7 (60.0-200.0); Potassium 4.3 mmol/L (3.5-5.5)
== END | disposition home or self-care (01) ==
LOC: LABWHC1 13:49
PROVIDERS: ATTEND Nurse Practitioner
DX: I10 Essential (primary) hypertension (principal)
CPT/HCPCS: 36415; 80048

== ENCOUNTER 2022-01-11 07:22 | Emergency (ER) | payer MEDICARE ==
[2022-01-11 07:28] VITALS: BP 154/87; PULSE 73; RESP 20; TEMP 98.1
[2022-01-11] MEDS ORDERED: KETOROLAC 15 MG/ML 1 ML VIAL IVP STA (07:46)
[2022-01-11] MEDS ORDERED: SODIUM CHLORIDE 0.9% 500 ML 500 ML IV STA (07:46)
[2022-01-11] MEDS ORDERED: HYDROmorphone 0.5 MG/0.5 ML SYRINGE IVP STA (07:46)
[2022-01-11 08:13] LABS: Basophils % (A) 0 %; Eosinophils # (A) 0.1 k/uL (0-0.7); Eosinophils % (A) 2 %; HCT 39.6 % (34.0-46.0); HGB 13.1 gm/dL (11.4-16.0); Lymphocytes % (A) 42 %; MCH 29.1 pg (25.0-35.0); MCHC 33.2 g/dL (31.0-37.0); MCV 87.7 fL (80.0-100.0); Mean Platelet Volume 7.9; Monocytes # (A) 0.3 k/uL (0-1.0); Monocytes % (A) 7 %; Neutrophils # (A) 2.2 k/uL (1.3-7.7); Neutrophils % (A) 47 %; Platelet Count 160 k/uL (150-450); RBC 4.52 m/uL (3.80-5.40); RDW 13.1 % (11.5-15.5); WBC 4.7 k/uL (3.8-10.6)
[2022-01-11 08:32] LABS: Albumin 3.6 g/dL (3.5-5.0); Potassium 3.7 mmol/L (3.5-5.1); Total Bilirubin 0.4 mg/dL (0.2-1.3); Total Protein 6.6 g/dL (6.3-8.2)
[2022-01-11 08:37] LABS: Appearance,Urine Clear (Clear); Bilirubin,Urine Negative (Negative); Blood,Urine Negative (Negative); Color,Urine Light Yellow; Glucose,Urine (UA) Negative (Negative); Ketones,Urine Negative (Negative); Leukocyte Esterase,Urine Negative (Negative); Nitrite,Urine Negative (Negative); Protein,Urine Negative (Negative); Specific Gravity,Urine 1.006 (1.001-1.035); Urobilinogen,Urine <2.0 mg/dL (<2.0)
--- NOTE | 2022-01-11 08:40 | ED ---
General Adult HPI - General Chief complaint: Back Pain/Injury Stated complaint: back pain Time Seen by Provider: 01/11/22 07:25 Source: patient, RN notes reviewed, old records reviewed Mode of arrival: ambulatory Limitations: no limitations - History of Present Illness Initial comments: This is a 71-year-old female presents emergency Department complaining of left lower back pain. Patient states been ongoing for a couple days per patient denies any radiation of the pain. Patient denies any dysuria hematuria urinary frequency. Patient states palpating the area increases the pain. Patient denies any injury. Patient denies doing any heavy lifting or moving. Patient denies any recent fever or chills. Patient denies any abdominal pain patient denies nausea vomiting diarrhea. - Related Data Home Medications Medication Instructions Recorded Confirmed Aspirin EC [Ecotrin Low Dose] 81 mg PO HS 10/07/20 03/18/21 Ezetimibe [Zetia] 10 mg PO DAILY 10/07/20 03/18/21 Furosemide [Lasix] 20 mg PO DAILY 10/07/20 03/18/21 Metoprolol Tartrate [Lopressor] 12.5 mg PO DAILY 10/07/20 03/18/21 Multivit-Min/FA/Lycopen/Lutein 1 tab PO DAILY 10/07/20 03/18/21 [Centrum Silver Tablet] Potassium Chloride ER [K-Dur 10] 10 meq PO DAILY 10/07/20 03/18/21 Albuterol Inhaler [Ventolin Hfa 1 puff INHALATION RT-QID PRN 03/18/21 03/18/21 Inhaler] Amoxicillin 500mg Tablet 500 mg PO Q8H 03/18/21 03/18/21 DULoxetine HCL [Cymbalta] 20 mg PO DAILY 03/18/21 03/18/21 Ibuprofen [Motrin] 800 mg PO TID PRN 03/18/21 03/18/21 Omeprazole 40 mg PO DAILY 03/18/21 03/18/21 Previous Rx's Medication Instructions Recorded Acetaminophen Tab [Tylenol] 650 mg PO Q6HR PRN tab 03/21/21 Aspirin 81 mg PO DAILY chew 03/21/21 Atorvastatin [Lipitor] 80 mg PO DAILY 30 Days #30 tab 03/21/21 Furosemide [Lasix] 20 mg PO DAILY tab 03/21/21 Loratadine [Claritin] 10 mg PO DAILY 30 Days #30 tab 03/21/21 Losartan [Cozaar] 50 mg PO DAILY 30 Days #30 tab 03/21/21 Metoprolol Tartrate [Lopressor] 12.5 mg PO BID tab 03/21/21 Ticagrelor [Brilinta] 90 mg PO BID 30 Days #60 tab 03/21/21 Cyclobenzaprine [Flexeril] 10 mg PO TID #20 tab 01/11/22 Ibuprofen [Motrin] 600 mg PO Q6HR PRN #20 tab 01/11/22 Allergies Allergy/AdvReac Type Severity Reaction Status Date / Time gabapentin [From Neurontin] AdvReac Hallucinati Verified 01/11/22 07:29 ons Review of Systems ROS Statement: Those systems with pertinent positive or pertinent negative responses have been documented in the HPI. ROS Other: All systems not noted in ROS Statement are negative. Past Medical History Past Medical History: Asthma, Chest Pain / Angina, COPD, GERD/Reflux, Hyperlipidemia, Hypertension, Osteoarthritis (OA) Additional Past Medical History / Comment(s): MIGRAINE HEADACHE,GLAUCOMA, SEE DR MILLS'S HISTORY AND PHYSICAL FOR CARDIAC HISTORY, SHORTNESS OF BREATH WITH EXERTION History of Any Multi-Drug Resistant Organisms: None Reported Past Surgical History: Cholecystectomy, Coronary Bypass/CABG, Heart Catheterization, Heart Catheterization With Stent Additional Past Surgical History / Comment(s): FRONTAL SINUS SURGERY-TUMOR OF THE BONE X3 Past Anesthesia/Blood Transfusion Reactions: No Reported Reaction Additional Past Anesthesia/Blood Transfusion Reaction / Comment(s): "WOKE UP DURING SURGERY" ONCE Date of Last Stent Placement:: 03/19/21 Past Psychological History: No Psychological Hx Reported Smoking Status: Former smoker Past Alcohol Use History: None Reported Past Drug Use History: None Reported - Past Family History Mother Family Medical History: No Reported History Father Family Medical History: Cancer General Exam - General Exam Comments Initial Comments: GENERAL: Patient is well-developed and well-nourished. Patient is nontoxic and well- hydrated and is in moderate distress. ENT: Neck is soft and supple. No significant lymphadenopathy is noted. Oropharynx is clear. Moist mucous membranes. Neck has full range of motion without eliciting any pain. EYES: The sclera were anicteric and conjunctiva were pink and moist. Extraocular movements were intact and pupils were equal round and reactive to light. Eyelids were unremarkable. PULMONARY: Unlabored respirations. Good breath sounds bilaterally. No audible rales rhonchi or wheezing was noted. CARDIOVASCULAR: There is a regular rate and rhythm without any murmurs gallops or rubs. ABDOMEN: Soft and nontender with normal bowel sounds. SKIN: Skin is clear with no lesions or rashes and otherwise unremarkable. NEUROLOGIC: Patient is alert and oriented x3. Cranial nerves II through XII are grossly intact. Motor and sensory are also intact. Normal speech, volume and content. Symmetrical smile. MUSCULOSKELETAL: Normal extremities with adequate strength and full range of motion. Patient has reproducible left lateral lower back pain just above the iliac crest on the left. LYMPHATICS: No significant lymphadenopathy is noted PSYCHIATRIC: Normal psychiatric evaluation. Limitations: no limitations Course Vital Signs 01/11/22 07:26 Temperature 98.1 F Pulse Rate 73 Respiratory 20 Rate Blood Pressure 154/87 O2 Sat by Pulse 99 Oximetry Medical Decision Making - Medical Decision Making I will back in the room to reevaluate the patient patient had pain at the left lower posterior ribs and just below that area in the lower back. Patient was feeling considerably better after medications. Patient states the pain was only slight and only slightly reproducible this point. I did a chest x-ray to make sure there was no pleural effusion or pneumonia. Patient chest x-ray showed no acute abnormality. - Lab Data Result diagrams: 01/11/22 08:02 01/11/22 08:02 Lab Results 01/11/22 01/11/22 01/11/22 Range/Units 08:02 08:02 08:02 WBC 4.7 (3.8-10.6) k/uL RBC 4.52 (3.80-5.40) m/uL Hgb 13.1 (11.4-16.0) gm/dL Hct 39.6 (34.0-46.0) % MCV 87.7 (80.0-100.0) fL MCH 29.1 (25.0-35.0) pg MCHC 33.2 (31.0-37.0) g/dL RDW 13.1 (11.5-15.5) % Plt Count 160 (150-450) k/uL MPV 7.9 Neutrophils % 47 % Lymphocytes % 42 % Monocytes % 7 % Eosinophils % 2 % Basophils % 0 % Neutrophils # 2.2 (1.3-7.7) k/uL Lymphocytes # 2.0 (1.0-4.8) k/uL Monocytes # 0.3 (0-1.0) k/uL Eosinophils # 0.1 (0-0.7) k/uL Basophils # 0.0 (0-0.2) k/uL Sodium 137 (137-145) mmol/L Potassium 3.7 (3.5-5.1) mmol/L Chloride 107 (98-107) mmol/L Carbon Dioxide 26 (22-30) mmol/L Anion Gap 4 mmol/L BUN 12 (7-17) mg/dL Creatinine 0.79 (0.52-1.04) mg/dL Est GFR (CKD-EPI)AfAm 87 (>60 ml/min/1.73 sqM) Est GFR (CKD-EPI)NonAf 76 (>60 ml/min/1.73 sqM) Glucose 106 H (74-99) mg/dL Calcium 9.0 (8.4-10.2) mg/dL Total Bilirubin 0.4 (0.2-1.3) mg/dL AST 26 (14-36) U/L ALT 16 (4-34) U/L Alkaline Phosphatase 70 (38-126) U/L Total Protein 6.6 (6.3-8.2) g/dL Albumin 3.6 (3.5-5.0) g/dL Urine Color Light Yellow Urine Appearance Clear (Clear) Urine pH 5.0 (5.0-8.0) Ur Specific [place] 1.006 (1.001-1.035) Urine Protein Negative (Negative) Urine Glucose (UA) Negative (Negative) Urine Ketones Negative (Negative) Urine Blood Negative (Negative) Urine Nitrite Negative (Negative) Urine Bilirubin Negative (Negative) Urine Urobilinogen <2.0 (<2.0) mg/dL Ur Leukocyte Esterase Negative (Negative) Disposition Clinical Impression: Musculoskeletal back pain Disposition: HOME SELF-CARE Condition: Good Instructions (If sedation given, give patient instructions): Acute Low Back Pain (ED) Prescriptions: Cyclobenzaprine [Flexeril] 10 mg PO TID #20 tab Ibuprofen [Motrin] 600 mg PO Q6HR PRN #20 tab PRN Reason: For pain Is patient prescribed a controlled substance at d/c from ED?: No Referrals: Yann Sena Jr, [Primary Care Provider] - 1-2 days Time of Disposition: 09:41
--- NOTE | 2022-01-11 09:27 | XR ---
EXAMINATION TYPE: XR chest 2V DATE OF EXAM: 01/11/2022 COMPARISON: Chest x-ray March 18, 2021 HISTORY: Shortness of breath. TECHNIQUE: Frontal and lateral views of the chest are obtained. FINDINGS: Overlying sternal wires and mediastinal clips are present. Coronary stent is felt present o n the lateral view superiorly. There is no suspicious focal air space opacity, pleural effusion, or p neumothorax seen. The cardiac silhouette size remains within normal limits. The osseous structures are demineralized. IMPRESSION: Chronic changes without acute pulmonary process. No significant change from prior.
== END 2022-01-11 09:58 | disposition home or self-care (01) ==
LOC: EC 07:22
DX: M54.50 Low back pain, unspecified (principal); I10 Essential (primary) hypertension; J44.9 Chronic obstructive pulmonary disease, unspecified; E78.5 Hyperlipidemia, unspecified; K21.9 Gastro-esophageal reflux disease without esophagitis; M19.90 Unspecified osteoarthritis, unspecified site; Z87.891 Personal history of nicotine dependence; Z79.82 Long term (current) use of aspirin; Z79.51 Long term (current) use of inhaled steroids; Z79.899 Other long term (current) drug therapy
CPT/HCPCS: 36415; 80053; 85025; 81003; 71046; 99283; 96374; 96375; J1885; J1170

== ENCOUNTER → 2022-01-11 | Outpatient (CLI) | payer MEDICARE ==
--- NOTE | 2022-01-11 20:56 | CT ---
EXAMINATION TYPE: CT sinus wo con DATE OF EXAM: 01/11/2022 COMPARISON: CT dated 03/08/2016 HISTORY: SINUS PRESSURE CT DLP: 404 mGycm. Automated Exposure Control for Dose Reduction was Utilized. TECHNIQUE: CT scan of the sinuses is performed without contrast, axial images are obtained, coronal r eformatted images are also reviewed. FINDINGS: Slightly deviated bony nasal septum convex to the left side. Unremarkable middle turbinates and infer ior turbinates. No significant mucosal thickening of the nasal fossa bilaterally. Patent infundibulum and ostiomeatal complexes. No significant mucosal thickening of the maxillary sin uses demonstrating intact bony boundary. Mild mucosal thickening of the left sphenoid sinus compartme nt. Unremarkable right sphenoid sinus compartment. Patent sphenoethmoidal recesses. Postsurgical/posttraumatic changes of the frontal sinus with persistent bone defects more evident on the right side. 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 Clear left frontal sinu s compartment. Grossly unremarkable ethmoid air cells. Clear visualized portion of the mastoid air cells. No gross orbital abnormality. Suspected tiny left inferior cerebellar infarct. Atherosclerotic calcification of the cavernous portions of the internal carotid arteries. IMPRESSION: Chronic changes of the frontal sinus as detailed above. Mild mucosal thickening of the le ft sphenoid sinus compartment. Clear remainder of the sphenoid sinus, maxillary sinuses and ethmoid a ir cells. Other incidental findings as described above.
== END | disposition home or self-care (01) ==
LOC: RADCTMAIN 16:01
PROVIDERS: ATTEND Otolaryngology
DX: J34.89 Other specified disorders of nose and nasal sinuses (principal); J34.2 Deviated nasal septum
CPT/HCPCS: 70486

== ENCOUNTER → 2022-04-12 | Outpatient (CLI) | payer MEDICARE ==
[2022-04-12 15:03] LABS: Chol/HDL Ratio 4.98 Ratio; LDL Cholesterol,Calculated 168.4 mg/dL (0.0-131.0)
== END | disposition home or self-care (01) ==
LOC: LABWHC1 09:45
PROVIDERS: ATTEND Internal Medicine Interventional Cardiology
DX: E78.5 Hyperlipidemia, unspecified (principal)
CPT/HCPCS: 36415; 80061

== ENCOUNTER → 2022-05-18 | Outpatient (CLI) | payer MEDICARE | END | disposition home or self-care (01) | LOC: RADMRIMAIN 15:39 | PROVIDERS: ATTEND Physical Medicine & Rehabilitation | DX: Z53.9 Procedure and treatment not carried out, unspecified reason (principal) ==

== ENCOUNTER 2022-07-09 16:36 | Emergency (ER) | payer MEDICARE ==
[2022-07-09 16:55] VITALS: BP 127/65; PULSE 78; RESP 18; TEMP 98.7
[2022-07-09] MEDS ORDERED: POTASSIUM CHLORIDE ER 20 MEQ TAB.ER PO STA (18:36)
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
== END 2022-07-09 18:55 | disposition home or self-care (01) ==
LOC: EC 16:36
DX: R21 Rash and other nonspecific skin eruption (principal); J44.9 Chronic obstructive pulmonary disease, unspecified; E78.5 Hyperlipidemia, unspecified; I10 Essential (primary) hypertension; M19.90 Unspecified osteoarthritis, unspecified site; K21.9 Gastro-esophageal reflux disease without esophagitis; Z87.891 Personal history of nicotine dependence; Z79.899 Other long term (current) drug therapy; Z88.9 Allergy status to unspecified drugs, medicaments and biological substances
CPT/HCPCS: 87070; 87205; 99282

== ENCOUNTER → 2022-11-10 | Outpatient (CLI) | payer MEDICARE ==
--- NOTE | 2022-11-10 15:42 | US ---
EXAMINATION TYPE: US kidneys/renal and bladder DATE OF EXAM: 11/10/2022 COMPARISON: NONE CLINICAL HISTORY: N13.30 HYDRONEPHROSIS UNSP. Hydronephrosis EXAM MEASUREMENTS: Right Kidney: 8.5 x 4.9 x 4.6 cm Left Kidney: 9.3 x 4.9 x 4.7 cm Right Kidney: No hydronephrosis or masses seen Left Kidney: No hydronephrosis or masses seen Bladder: wnl Bilateral Jets seen: Yes IMPRESSION: 1. Normal renal ultrasound
== END | disposition home or self-care (01) ==
LOC: RADUSWWP 14:26
PROVIDERS: ATTEND Urology
DX: N13.30 Unspecified hydronephrosis (principal)
CPT/HCPCS: 76770

== ENCOUNTER → 2022-11-10 | Outpatient (CLI) | payer MEDICARE ==
--- NOTE | 2022-11-13 17:56 | MM ---
Reason for Exam: Screening (asymptomatic). Last mammogram was performed 19 year(s) and 9 month(s) ago. Patient History: Menarche at age 11. First Full-Term at age 20. Hysterectomy at age 41. Postmenopausal. Estrogen for 1 year, 6 months. Risk Values: Yamilex 5 year model risk: 1.6%. NCI Lifetime model risk: 3.9%. Prior Study Comparison: 09/06/1984 Screening Mammogram, Unknown. 12/04/1987 Screening Mammogram, Unknown. 01/21/2003 Bilateral Screening Mammogram, [facility]. Tissue Density: The breast tissue is heterogeneously dense. This may lower the sensitivity of mammography. Findings: Analyzed By CAD. Benign bilateral vascular calcifications. Areas of asymmetric density do not persist on 3 images. No significant mass, suspicious microcalcification, or other discrete abnormality is seen. Overall Assessment: Benign, BI-RAD 2 Management: Screening Mammogram of both breasts in 1 year. 1. Patient should continue monthly self breast exams. 2. A clinical breast exam by your physician is recommended on an annual basis. 3. This exam should not preclude additional follow-up of suspicious palpable abnormalities. Electronically signed and approved by: Yamile Herron M.D. Radiologist
== END | disposition home or self-care (01) ==
LOC: RADMAMWWP 14:28
PROVIDERS: ATTEND Family Medicine
DX: Z12.31 Encounter for screening mammogram for malignant neoplasm of breast (principal); Z78.0 Asymptomatic menopausal state
CPT/HCPCS: 77063; 77067

== ENCOUNTER 2023-02-15 17:53 | Emergency (ER) | payer MEDICARE ==
[2023-02-15 18:55] VITALS: TEMP 98.2
[2023-02-15] MEDS ORDERED: DEXAMETHASONE SOD PHOSPHATE 10 MG/ML 1 ML VIAL IVP STA (20:04)
[2023-02-15] MEDS ORDERED: KETOROLAC 15 MG/ML 1 ML VIAL IVP STA (20:04)
[2023-02-15 20:44] LABS: HCT 39.9 % (34.0-46.0); HGB 13.1 gm/dL (11.4-16.0); MCH 28.5 pg (25.0-35.0); MCHC 32.9 g/dL (31.0-37.0); MCV 86.6 fL (80.0-100.0); Mean Platelet Volume 8.3; Platelet Count 181 k/uL (150-450); RBC 4.61 m/uL (3.80-5.40); RDW 13.2 % (11.5-15.5); WBC 6.6 k/uL (3.8-10.6)
[2023-02-15 20:59] LABS: Albumin 4.3 g/dL (3.5-5.0); Calcium 9.5 mg/dL (8.4-10.2); Total Bilirubin 0.5 mg/dL (0.2-1.3); Total Protein 7.3 g/dL (6.3-8.2)
--- NOTE | 2023-02-15 22:01 | ED ---
ENT HPI - General Chief complaint: ENT Stated complaint: lump under R ear Time Seen by Provider: 02/15/23 19:29 Source: patient Mode of arrival: ambulatory Limitations: no limitations - History of Present Illness Initial comments: Patient is a 72-year-old female who presents to the emergency department for lump near behind right ear. Patient states she had pain in her neck since this morning. Pain is throughout her entire right neck. It is worse with movement. She denies head or neck injury. She was pressing around her neck and felt a lump behind her right ear. Patient states the lump was swollen in the morning which has gone down in size without treatment as the day has progressed. She denies cold-like symptoms, ear pain, dental pain, throat pain, trouble swallowing. Denies headache, dizziness, chest pain, shortness of breath, nausea, vomiting. - Related Data Home Medications Medication Instructions Recorded Confirmed Aspirin EC [Ecotrin Low Dose] 81 mg PO HS 10/07/20 03/18/21 Ezetimibe [Zetia] 10 mg PO DAILY 10/07/20 03/18/21 Furosemide [Lasix] 20 mg PO DAILY 10/07/20 03/18/21 Metoprolol Tartrate [Lopressor] 12.5 mg PO DAILY 10/07/20 03/18/21 Multivit-Min/FA/Lycopen/Lutein 1 tab PO DAILY 10/07/20 03/18/21 [Centrum Silver Tablet] Potassium Chloride ER [K-Dur 10] 10 meq PO DAILY 10/07/20 03/18/21 Albuterol Inhaler [Ventolin Hfa 1 puff INHALATION RT-QID PRN 03/18/21 03/18/21 Inhaler] Amoxicillin 500mg Tablet 500 mg PO Q8H 03/18/21 03/18/21 DULoxetine HCL [Cymbalta] 20 mg PO DAILY 03/18/21 03/18/21 Ibuprofen [Motrin] 800 mg PO TID PRN 03/18/21 03/18/21 Omeprazole 40 mg PO DAILY 03/18/21 03/18/21 Previous Rx's Medication Instructions Recorded Acetaminophen Tab [Tylenol] 650 mg PO Q6HR PRN tab 03/21/21 Aspirin 81 mg PO DAILY chew 03/21/21 Atorvastatin [Lipitor] 80 mg PO DAILY 30 Days #30 tab 03/21/21 Furosemide [Lasix] 20 mg PO DAILY tab 03/21/21 Loratadine [Claritin] 10 mg PO DAILY 30 Days #30 tab 03/21/21 Losartan [Cozaar] 50 mg PO DAILY 30 Days #30 tab 03/21/21 Metoprolol Tartrate [Lopressor] 12.5 mg PO BID tab 03/21/21 Ticagrelor [Brilinta] 90 mg PO BID 30 Days #60 tab 03/21/21 Cyclobenzaprine [Flexeril] 10 mg PO TID #20 tab 01/11/22 Ibuprofen [Motrin] 600 mg PO Q6HR PRN #20 tab 01/11/22 Mupirocin 2% Oint [Bactroban 2% 1 applic TOPICAL BID #22 gm 07/09/22 Oint] hydrOXYzine HCL [Atarax] 25 mg PO QID PRN #20 tab 07/09/22 Allergies Allergy/AdvReac Type Severity Reaction Status Date / Time gabapentin [From Neurontin] AdvReac Hallucinati Verified 02/15/23 18:54 ons Review of Systems ROS Statement: Those systems with pertinent positive or pertinent negative responses have been documented in the HPI. ROS Other: All systems not noted in ROS Statement are negative. Past Medical History Past Medical History: Asthma, Chest Pain / Angina, COPD, GERD/Reflux, Hyperlipidemia, Hypertension, Osteoarthritis (OA) Additional Past Medical History / Comment(s): MIGRAINE HEADACHE,GLAUCOMA, SEE DR MILLS'S HISTORY AND PHYSICAL FOR CARDIAC HISTORY, SHORTNESS OF BREATH WITH EXERTION History of Any Multi-Drug Resistant Organisms: None Reported Past Surgical History: Cholecystectomy, Coronary Bypass/CABG, Heart Catheterization, Heart Catheterization With Stent Additional Past Surgical History / Comment(s): FRONTAL SINUS SURGERY-TUMOR OF THE BONE X3 Past Anesthesia/Blood Transfusion Reactions: No Reported Reaction Additional Past Anesthesia/Blood Transfusion Reaction / Comment(s): "WOKE UP DURING SURGERY" ONCE Date of Last Stent Placement:: 03/19/21 Past Psychological History: No Psychological Hx Reported Smoking Status: Former smoker Past Alcohol Use History: None Reported Past Drug Use History: None Reported - Past Family History Mother Family Medical History: No Reported History Father Family Medical History: Cancer General Exam Limitations: no limitations General appearance: alert, in no apparent distress Head exam: Present: atraumatic, normocephalic, normal inspection Eye exam: Present: normal appearance, PERRL, EOMI. Absent: scleral icterus, conjunctival injection, periorbital swelling ENT exam: Present: normal oropharynx, mucous membranes moist, TM's normal bilaterally Neck exam: Present: lymphadenopathy (right postauricular. unilateral, soft, mobile, mildly tender), other (no bruits) Respiratory exam: Present: normal lung sounds bilaterally. Absent: respiratory distress, wheezes, rales, rhonchi, stridor Cardiovascular Exam: Present: regular rate, normal rhythm, normal heart sounds. Absent: systolic murmur, diastolic murmur, rubs, gallop, clicks Extremities exam: Present: normal inspection Neurological exam: Present: alert, oriented X3, CN II-XII intact Expanded Cranial nerves: EOM's Intact: Normal, Tongue Deviation: Normal, Facial Sensatio n: Normal, Facial Palsy with Forehead Movement: Normal, Facial Palsy without Forehead Movement: Normal Cerebellar function: Finger to Nose: Normal, Heel to Pritchard: Normal, Romberg: Normal Sensory exam: Upper Extremity Light Touch: Normal, Lower Extremity Light Touch: Normal Motor strength exam: RUE: 5, LUE: 5, RLE: 5, LLE: 5 Psychiatric exam: Present: normal affect, normal mood Skin exam: Present: warm, dry, intact, normal color. Absent: rash Course Vital Signs 02/15/23 02/15/23 18:52 22:10 Temperature 98.2 F Pulse Rate 67 75 Respiratory 20 16 Rate Blood Pressure 151/68 183/80 O2 Sat by Pulse 99 98 Oximetry Medical Decision Making - Medical Decision Making Was pt. sent in by a medical professional or institution (, PA, [employer], urgent care, hospital, or fdc...) When possible be specific @ -No Did you speak to anyone other than the patient for history (EMS, parent, family, police, friend...)? What history was obtained from this source @ -No Did you review nursing and triage notes (agree or disagree)? Why? @ -I reviewed and agree with nursing and triage notes Were old charts reviewed (outside hosp., previous admission, EMS record, old EKG, old radiological studies, urgent care reports/EKG's, fdc records)? Report findings @ -No old charts were reviewed Differential Diagnosis (chest pain, altered mental status, abdominal pain women, abdominal pain men, vaginal bleeding, weakness, fever, dyspnea, syncope, headache, dizziness, GI bleed, back pain, seizure, CVA, palpatations, mental health)? @ -Aneurysm, infection, leukemia. This list is not meant to be all inclusive EKG interpreted by me (3pts min.). @ -As above X-rays interpreted by me (1pt min.). @ -None done CT interpreted by me (1pt min.). @ -None done U/S interpreted by me (1pt. min.). @ -[None done] What testing was considered but not performed or refused? (CT, X-rays, U/S, labs)? Why? @ -CTA of the facial bones and neck was obtained however patient declined states she does not want imaging. What meds were considered but not given or refused? Why? @ -[None] Did you discuss the management of the patient with other professionals (professionals i.e. , PA, [employer], lab, RT, psych nurse, child welfare social worker, hydroelectric plant electrical engineer, teacher, preventive medicine officer, wrapper caser)? Give summary @ -[No] Was smoking cessation discussed for >3mins.? @ -[No] Was critical care preformed (if so, how long)? @ -[No] Were there social determinants of health that impacted care today? How? (Homelessness, low income, unemployed, alcoholism, drug addiction, transportation, low edu. Level, literacy, decrease access to med. care, care home, rehab)? @ -[No] Was there de-escalation of care discussed even if they declined (Discuss DNR or withdrawal of care, Hospice)? DNR status @ -[No] What co-morbidities impacted this encounter? (DM, HTN, Smoking, COPD, CAD, Cancer, CVA, ARF, Chemo, Hep., AIDS, mental health diagnosis, sleep apnea, morbid obesity)? @ -[None] Was patient admitted / discharged? Hospital course, mention meds given and route , prescriptions, significant lab abnormalities, going to OR and other pertinent info. @ -Patient presenting for right postauricular lymphadenopathy. The lymph node is mildly enlarged, soft, mobile, tender. No surrounding erythema or swelling. No obvious infectious process found on physical exam. No carotid bruits. Laboratory studies obtained and are relatively unremarkable. CTA of the facial bones and neck was ordered however upon being taken to CT patient declined she n o longer wants imaging. Patient did receive a dose of Decadron and pain medication in the emergency department. She is feeling better she will be discharged with strict return parameters. Undiagnosed new problem with uncertain prognosis? @ -[No] Drug Therapy requiring intensive monitoring for toxicity (Heparin, Nitro, Insulin, Cardizem)? @ -[No] Were any procedures done? @ -[No] Diagnosis/symptom? @ -Postauricular lymphadenopathy Acute, or Chronic, or Acute on Chronic? @ -Acute Uncomplicated (without systemic symptoms) or Complicated (systemic symptoms)? @ -Uncomplicated Side effects of treatment? @ -[No] Exacerbation, Progression, or Severe Exacerbation? @ -[No] Poses a threat to life or bodily function? How? (Chest pain, [place], [place], pneumonia, PE, COPD, DKA, ARF, appy, cholecystitis, CVA, Diverticulitis, Homicidal, Suicidal, threat to staff... and all critical care pts) @ -[No] Dr. Hodgson is my attending - Lab Data Result diagrams: 02/15/23 20:23 02/15/23 20:23 Lab Results 02/15/23 02/15/23 Range/Units 20:23 20:23 WBC 6.6 (3.8-10.6) k/uL RBC 4.61 (3.80-5.40) m/uL Hgb 13.1 (11.4-16.0) gm/dL Hct 39.9 (34.0-46.0) % MCV 86.6 (80.0-100.0) fL MCH 28.5 (25.0-35.0) pg MCHC 32.9 (31.0-37.0) g/dL RDW 13.2 (11.5-15.5) % Plt Count 181 (150-450) k/uL MPV 8.3 Sodium 142 (137-145) mmol/L Potassium 4.0 (3.5-5.1) mmol/L Chloride 106 (98-107) mmol/L Carbon Dioxide 26 (22-30) mmol/L Anion Gap 10 mmol/L BUN 18 H (7-17) mg/dL Creatinine 1.03 (0.52-1.04) mg/dL Est GFR (CKD-EPI)AfAm 62 (>60 ml/min/1.73 sqM) Est GFR (CKD-EPI)NonAf 54 (>60 ml/min/1.73 sqM) Glucose 87 (74-99) mg/dL Calcium 9.5 (8.4-10.2) mg/dL Total Bilirubin 0.5 (0.2-1.3) mg/dL AST 28 (14-36) U/L ALT 23 (4-34) U/L Alkaline Phosphatase 87 (38-126) U/L Total Protein 7.3 (6.3-8.2) g/dL Albumin 4.3 (3.5-5.0) g/dL Disposition Clinical Impression: Postauricular lymphadenopathy Disposition: HOME SELF-CARE Condition: Good Instructions (If sedation given, give patient instructions): Lymphadenopathy (ED) Additional Instructions: Take Tylenol or Motrin for pain. Follow-up with primary care provider in one to 2 days. Return to the emergency department if you experience new, concerning, or worsening symptoms. Is patient prescribed a controlled substance at d/c from ED?: No Referrals: Erica Hodgson DO [Primary Care Provider] - 1-2 days
[2023-02-15 22:11] VITALS: BP 183/80; PULSE 75; RESP 16
== END 2023-02-15 22:11 | disposition home or self-care (01) ==
LOC: EC 17:53
DX: H70.811 Postauricular fistula, right ear (principal); J44.9 Chronic obstructive pulmonary disease, unspecified; E78.5 Hyperlipidemia, unspecified; I10 Essential (primary) hypertension; Z79.82 Long term (current) use of aspirin; Z79.899 Other long term (current) drug therapy; Z88.8 Allergy status to other drugs, medicaments and biological substances; Z87.891 Personal history of nicotine dependence
CPT/HCPCS: 36415; 80053; 85027; 99283; 96374; 96375; J1100; J1885

== ENCOUNTER → 2023-04-05 | Outpatient (CLI) | payer MEDICARE ==
[2023-04-05 19:47] LABS: Blood Urea Nitrogen 11.3 mg/dL (9.0-27.0); Carbon Dioxide 27.3 mmol/L (21.6-31.8); Chloride 106 mmol/L (96-109); Potassium 4.8 mmol/L (3.5-5.5); Sodium 142 mmol/L (135-145)
[2023-04-06 00:29] LABS: HGB 13.4 d/dL (12.0-15.0); MCH 28.5 pg (27.0-32.0); MCHC 31.2 d/dL (32.0-37.0); MCV 91.3 FL (80.0-97.0); Mean Platelet Volume 11.9 FL (9.5-12.2); NRBC Per 100 WBC 0 X 10*3/uL (0.00-0.01); Platelet Count 207 X 10*3/uL (140-440); RBC 4.71 X 10*6/uL (4.10-5.20); RDW 12.8 % (11.5-14.5); WBC 6.96 X 10*3/uL (4.50-10.00)
== END | disposition home or self-care (01) ==
LOC: LABPAT 11:57
PROVIDERS: ATTEND Internal Medicine Interventional Cardiology
DX: Z01.812 Encounter for preprocedural laboratory examination (principal); I20.9 Angina pectoris, unspecified
CPT/HCPCS: 36415; 80051; 82565; 84520; 85027

== ENCOUNTER 2023-04-17 07:56 | Day surgery (SDC) | payer MEDICARE ==
[~2023-04-17 07:56] MED LIST changes: +ALPRAZolam 0.25 MG TAB PO PRN; +ALPRAZolam 0.5 MG TAB PO PRN; +ASPIRIN 325 MG TAB PO STA; -HEPARIN SODIUM 1,000 UN/ML (10ML VL) IV ONE; +NITROGLYCERIN SL TABS 0.4 MG TAB SUBLINGUAL PRN; +SODIUM CHLORIDE 0.9% 1,000 ML in EMPTY BAG 1 BAG IV SCH; -TIROFIBAN BOLUS 12.5MG/250 ML BAG IV ONE
[2023-04-17 08:29] VITALS: RESP 16; TEMP 97.9
[2023-04-17] MEDS ORDERED: LIDOCAINE 1% INJ 10MG/ML (20 ML MDV) ONE (08:33)
[2023-04-17] MEDS: MIDAZOLAM 2 MG/2 ML VIAL IVP ONE ×2 (09:15→09:18)
[2023-04-17] MEDS ORDERED: LIDOCAINE 1% INJ 10MG/ML (30 ML VIAL-PF) SQ ONE (09:34)
[2023-04-17] MEDS ORDERED: fentaNYL (PF) 50 MCG/ML 2 ML AMP ONE (09:35)
[2023-04-17] MEDS ORDERED: fentaNYL (PF) 50 MCG/ML 2 ML AMP IVP ONE (09:37)
[2023-04-17] MEDS ORDERED: IOPAMIDOL-370 100ML BTL INJ ONE ×2 (09:55→10:01)
[2023-04-17] MEDS ORDERED: CYCLOBENZAPRINE 10 MG TAB PO PRN (10:14)
[2023-04-17] MEDS ORDERED: ALBUTEROL NEBULIZED 2.5 MG/3 ML INHALATION PRN (10:14)
[2023-04-17] MEDS ORDERED: LORATADINE 10 MG TAB PO PRN (10:14)
[2023-04-17] MEDS ORDERED: ACETAMINOPHEN TAB 325 MG TAB PO PRN (10:14)
[2023-04-17] MEDS ORDERED: ALBUTEROL HFA INHALER INHALATION PRN (10:14)
[2023-04-17] MEDS ORDERED: RX INFO: IV CONTRAST WAS GIVEN 1 EACH MISC MISCELLANE PRN (10:19)
[2023-04-17] MEDS ORDERED: HYDROmorphone 0.5 MG/0.5 ML SYRINGE IVP STA (10:29)
[2023-04-17] MEDS ORDERED: MIDAZOLAM 2 MG/2 ML VIAL IV STA (11:36)
--- NOTE | 2023-04-17 11:47 | CC ---
CARDIAC CATHETERIZATION REPORT INDICATIONS: This is a 72-year-old lady with a known history of CAD, who underwent aortocoronary bypass surgery in 2004. At that time, she had significant triple-vessel and left main disease. She had a FOOTE to LAD, vein graft to the first diagonal, vein graft to the obtuse marginal, and also, in the report, it states that she had a vein graft to the PDA branch of RCA. However, subsequent cardiac cath in 2007, as well as in 2020, revealed that the vein graft to the PDA was not evident on angiogram. The last study was in February 2021, and at that time and prior to that visit, she had a stenting of the vein graft to the diagonal performed with a 2.2 mm Shailesh balloon, and she came into the hospital on March 18, 2021, with occlusion of that vein graft to the diagonal. I performed stenting of this vessel with a larger 2.75 caliber stent. She has been having symptoms of angina, which is mostly shortness of breath, recurrent, persistent, and therefore, I recommended a stress test. The stress test did not reveal ischemia. I optimized medical therapy, added nitrates, but she still had chest tightness, pressure, and shortness of breath. Therefore, she is brought in for elective cardiac cath today. PROCEDURE NOTE: Under local anesthesia and strict aseptic precautions, a 6-Czech introducer was placed in the right femoral artery. Coronary angiography was performed using a standard left Malorie catheter. A Edgar catheter for the FOOTE and an AR2 catheter for the vein grafts. The patient's right coronary artery was never grafted. Following the cardiac cath, I also checked LV pressures with a pigtail catheter. The sheath was taken out, and Angio-Seal device was used to secure hemostasis, and she was sent to the room in a stable condition. Results were discussed with the patient and daughter. We will pursue medical therapy. The FOOTE to LAD, vein graft to the diagonal, and vein graft to the OM are patent. There is significant progression of disease within the [place] vessels, which may be responsible for her angina. I will add ranolazine and probably amlodipine and see how she does. Prognosis remains guarded. She will be discharged later on today. ANESTHESIA: Moderate conscious sedation time was 31 minutes. The patient was administered Versed. Oxygen saturation, hemodynamics, and EKG were monitored closely. CARDIAC CATHETERIZATION FINDINGS: The left ventricular end-diastolic pressure was 12 to 13 mmHg without any gradient across the aortic valve. CORONARY ANGIOGRAPHY FINDINGS: Left main coronary artery: This vessel was injected, but cannot be seen very much where there was a 99% occlusion of the ostium of the left main. There is mild opacification of the left system with total occlusion of LAD, circumflex, and left main itself may have a 99% stenosis. Left LAD and circumflex are also not well visualized and probably occluded. Selective injection of the left coronary artery was not possible because of ostial lesion. Right coronary artery: Dominant vessel, heavily calcified, has some damping when I cannulated the vessel, and there were some multiple lesions in the RCA, there is a mid lesion of about 40% to 50%, but overall, angiographic appearance is pretty much unchanged. This vessel is large in caliber, but appears to be diffusely diseased with a 40% narrowing on multiple areas, distally bifurcates into large PDA and PLV, both of which have minor irregularities. They provide collaterals to the LAD system and also to other secondary branches. The RCA, therefore, is dominant, has about a 40% multiple areas of narrowing with calcification. They provides some collaterals to the circumflex vessels. Mid RCA has about a 40% narrowing. Saphenous vein graft to the obtuse marginal branch: This graft is widely patent in its origin, insertion site, and opacified obtuse marginal has minor irregularities. Saphenous vein graft to the major diagonal branch. This graft is widely patent in its origin, course, insertion site, opacified diagonal is small in caliber, but has no significant disease. It goes back and fills the LAD partially. Left internal mammary artery graft to LAD: This graft is widely patent in its origin, course, insertion site, and opacified LAD is small in caliber with diffuse disease noted. The entire LAD has diffuse disease and it is in the [place] vessel. The graft itself is patent. Left ventriculogram was not performed. FINAL IMPRESSION: This patient has normal filling pressures. No gradient. There is diffuse disease in the [place] system beyond the insertion site of the vein graft to the LAD. The RCA is diffusely disease without critical stenosis. Maximum is probably 40% calcified. Two branches are free of significant disease. Circumflex LAD and left main are totally occluded. The vein graft to the diagonal and circumflex marginal were patent with good flow. There is significant progression of [place] disease and also diffuse disease in the LAD beyond insertion of the FOOTE. RECOMMENDATIONS: Aggressive medical therapy with ranolazine and calcium channel rena is advised. The patient has difficulty taking nitrates. I will see her in the office this Monday and make further recommendation. She will be discharged later on today. Prognosis is guarded. Findings were discussed with the patient and daughter. Procedure was performed uneventfully. MMODL / IJN: [id number] /
[2023-04-17 16:18] VITALS: BP 166/70; PULSE 55
[2023-04-17] MEDS ORDERED: METOPROLOL TARTRATE 12.5 MG TAB PO SCH (21:00)
[2023-04-18] MEDS ORDERED: MULTIVITAMINS, THERA 1 EACH TAB PO SCH (09:00)
[2023-04-18] MEDS ORDERED: PANTOPRAZOLE 40 MG TABLET PO SCH (09:00)
[2023-04-18] MEDS ORDERED: METOPROLOL TARTRATE 25 MG TAB PO SCH (09:00)
[2023-04-18] MEDS ORDERED: ASPIRIN 81 MG PO SCH (09:00)
[2023-04-18] MEDS ORDERED: POTASSIUM CHLORIDE ER 10 MEQ TAB.ER.PRT PO SCH (09:00)
== END 2023-04-17 16:40 | disposition home or self-care (01) ==
LOC: CATHCVL 07:56
PROVIDERS: ATTEND Internal Medicine Interventional Cardiology
DX: I25.10 Atherosclerotic heart disease of native coronary artery without angina pectoris (principal); I25.82 Chronic total occlusion of coronary artery; I10 Essential (primary) hypertension; E78.5 Hyperlipidemia, unspecified; J44.9 Chronic obstructive pulmonary disease, unspecified; F17.210 Nicotine dependence, cigarettes, uncomplicated; Z95.1 Presence of aortocoronary bypass graft; Z82.49 Family history of ischemic heart disease and other diseases of the circulatory system; Z79.82 Long term (current) use of aspirin; Z79.51 Long term (current) use of inhaled steroids; Z79.899 Other long term (current) drug therapy
CPT/HCPCS: 93459; C1760; C1769 ×2; C1894; J2250; J2001; J3010; J1170; Q9967

== ENCOUNTER → 2023-04-29 | Outpatient (CLI) | payer MEDICARE ==
[2023-04-29 23:37] LABS: Blood Urea Nitrogen 13.9 mg/dL (9.0-27.0); Calcium 9.9 mg/dL (8.7-10.3); Carbon Dioxide 25.2 mmol/L (21.6-31.8); Chloride 104 mmol/L (96-109); Glucose 111 mg/dL (70-110); Potassium 4.2 mmol/L (3.5-5.5); Sodium 141 mmol/L (135-145)
== END | disposition home or self-care (01) ==
LOC: LABWHC1 09:03
PROVIDERS: ATTEND Internal Medicine Interventional Cardiology
DX: I10 Essential (primary) hypertension (principal); I25.10 Atherosclerotic heart disease of native coronary artery without angina pectoris
CPT/HCPCS: 36415; 80048

== ENCOUNTER 2024-03-05 08:55 | Inpatient (IN) | payer MEDICARE ==
[2024-03-05] MEDS: HEPARIN SODIUM 1,000 UN/ML (10ML VL) IV ONE (09:02)
[2024-03-05] MEDS: SODIUM CHLORIDE 0.9% 1,000 ML IV STA (09:03)
[2024-03-05] MEDS ORDERED: NALOXONE 0.4 MG/ML 1 ML VIAL IV PRN (09:04)
[2024-03-05] MEDS ORDERED: VERAPAMIL 2.5 MG/ML 2 ML AMP ONE (09:08)
[2024-03-05] MEDS ORDERED: HEPARIN SODIUM 1,000 UN/ML (10ML VL) ONE (09:09)
--- NOTE | 2024-03-05 09:11 | ED ---
General Adult HPI - General Chief complaint: Chest Pain Stated complaint: STEMI Time Seen by Provider: 03/05/24 08:57 Source: patient, EMS, RN notes reviewed, old records reviewed Mode of arrival: EMS - History of Present Illness Initial comments: Patient is a 73-year-old female who presents emergency department complaining of chest pain. Began at approximately 3 AM this morning. Has a history of cardiac stent. States she took 3 nitros and attempted home breathing treatment without much improvement. Has a history of hypertension, hyperlipidemia. EMS called jocelyn and transferred a STEMI EKG. Patient presents as STEMI activation. Still complaining of chest pain. No other acute complaints other than pain radiating down the left arm. Already received 324 mg of aspirin. Patient also received fentanyl for analgesia. - Related Data Home Medications Medication Instructions Recorded Confirmed Multivit-Min/FA/Lycopen/Lutein 1 tab PO DAILY 10/07/20 04/13/23 [Centrum Silver Tablet] Potassium Chloride ER [K-Dur 10] 10 meq PO DAILY 10/07/20 04/17/23 Albuterol Inhaler [Ventolin Hfa 1 puff INHALATION RT-QID PRN 03/18/21 04/17/23 Inhaler] Omeprazole 40 mg PO DAILY 03/18/21 04/17/23 Albuterol Nebulized [Ventolin 2.5 mg INHALATION Q6H PRN 04/13/23 04/17/23 Nebulized] Cyclobenzaprine [Flexeril] 10 mg PO TID PRN 04/13/23 04/13/23 Ibuprofen [Motrin] 600 - 800 mg PO Q6HR PRN 04/13/23 04/13/23 Loratadine [Claritin] 10 mg PO DAILY PRN 04/13/23 04/13/23 Metoprolol Tartrate [Lopressor] 12.5 mg PO HS 04/17/23 04/17/23 Metoprolol Tartrate [Lopressor] 25 mg PO DAILY 04/17/23 04/17/23 Previous Rx's Medication Instructions Recorded Acetaminophen Tab [Tylenol] 650 mg PO Q6HR PRN tab 03/21/21 Aspirin 81 mg PO DAILY chew 03/21/21 Allergies Allergy/AdvReac Type Severity Reaction Status Date / Time gabapentin [From Neurontin] AdvReac Hallucinati Verified 03/05/24 09:01 ons Review of Systems ROS Statement: Those systems with pertinent positive or pertinent negative responses have been documented in the HPI. Review of Systems: CONST: Denies fever EYES: Denies blurry vision ENT: Denies nasal congestion C/V: Endorses is chest pain RESP: Denies shortness of breath GI: Denies abdominal pain : Denies dysuria SKIN: Denies rash. MSK: Denies joint pain. NEURO: Denies headache ROS Other: All systems not noted in ROS Statement are negative. Past Medical History Past Medical History: Asthma, Chest Pain / Angina, COPD, GERD/Reflux, Hyperlipidemia, Hypertension, Osteoarthritis (OA) Additional Past Medical History / Comment(s): MIGRAINE HEADACHE,GLAUCOMA, SEE DR MILLS'S HISTORY AND PHYSICAL FOR CARDIAC HISTORY, SHORTNESS OF BREATH WITH EXERTION History of Any Multi-Drug Resistant Organisms: None Reported Past Surgical History: Cholecystectomy, Coronary Bypass/CABG, Heart Catheterization, Heart Catheterization With Stent Additional Past Surgical History / Comment(s): FRONTAL SINUS SURGERY-TUMOR OF THE BONE X3, skin cancer Past Anesthesia/Blood Transfusion Reactions: No Reported Reaction Additional Past Anesthesia/Blood Transfusion Reaction / Comment(s): "WOKE UP DURING SURGERY" ONCE Date of Last Stent Placement:: 03/19/21 Past Psychological History: No Psychological Hx Reported Smoking Status: Former smoker Past Alcohol Use History: None Reported Past Drug Use History: None Reported - Past Family History Mother Family Medical History: No Reported History Father Family Medical History: Cancer General Exam - General Exam Comments Initial Comments: General: Moderate distress secondary to chest pain. HEAD: Normal with no signs of head trauma. EYES: PERRLA, EOMI, conjunctiva normal, no discharge. ENT: Hearing grossly intact, normal oropharynx. RESPIRATORY: Clear breath sounds bilaterally. No wheezes, rales, or rhonchi. C/V: Regular rate and rhythm. S1 and S2 auscultated, no edema, peripheral pulses 2+ and intact throughout ABD: Abd is soft, nontender, nondistended EXT: Normal range of motion, no obvious deformity SKIN: No rashes or lesions observed on exposed skin. NEURO: Alert and oriented x 4. Course Vital Signs 03/05/24 03/05/24 08:56 09:15 Temperature 96.8 F L Pulse Rate 61 65 Respiratory 22 18 Rate Blood Pressure 140/77 124/77 O2 Sat by Pulse 100 100 Oximetry Medical Decision Making - Medical Decision Making Was pt. sent in by a medical professional or institution (, [facility], [facility] ATTENDANT, urgent care, hospital, or fdc...) When possible be specific @ -No Did you speak to anyone other than the patient for history (EMS, parent, family, police, friend...)? What history was obtained from this source @ -No Did you review nursing and triage notes (agree or disagree)? Why? @ -I reviewed and agree with nursing and triage notes Were old charts reviewed (outside hosp., previous admission, EMS record, old EKG, old radiological studies, urgent care reports/EKG's, fdc records)? Report findings @ -Prior EKG from February [address] segment depressions and T wave inversions in the lateral precordial leads. This is an acute change from that EKG. Differential Diagnosis (chest pain, altered mental status, abdominal pain women, abdominal pain men, vaginal bleeding, weakness, fever, dyspnea, syncope, headache, dizziness, GI bleed, back pain, seizure, CVA, palpatations, mental health, musculoskeletal)? @ -Differential Chest Pain: Stable Angina, Unstable Angina, STEMI, NSTEMI Aortic Dissection, Pneumothorax, Musculoskeletal, Esophageal Spasm GERD, Cholecystitis, Pancreatitis, Zoster, this is not meant to be an all-inclusive list. EKG interpreted by me (3pts min.). @ -As above X-rays interpreted by me (1pt min.). @ -Chest x-ray reveals no obvious acute cardiopulmonary process or mediastinal widening. CT interpreted by me (1pt min.). @ -None done U/S interpreted by me (1pt. min.). @ -None done What testing was considered but not performed or refused? (CT, X-rays, U/S, labs)? Why? @ -None What meds were considered but not given or refused? Why? @ -Started aspirin but patient already received it. Did you discuss the management of the patient with other professionals (professionals i.e. [facility] [place], [facility] ATTENDANT, lab, RT, psych nurse, medical social worker, founder and ceo, teacher, sba business development officer, caseworker)? Give summary @ -Discussed with Dr. Maki who is rounding in the ER reevaluate the patient at bedside and was in agreement with plan for disposition to catheterization lab for cardiac cath over concern for STEMI. Spoke with admitting physician, Dr. Sr who accepted the admission. Was smoking cessation discussed for >3mins.? @ -No Was critical care preformed (if so, how long)? @ -Yes, 24 minutes Were there social determinants of health that impacted care today? How? (Homelessness, low income, unemployed, alcoholism, drug addiction, transportation, low edu. Level, literacy, decrease access to med. care, long term, rehab)? @ -No Was there de-escalation of care discussed even if they declined (Discuss DNR or withdrawal of care, Hospice)? DNR status @ -No What co-morbidities impacted this encounter? (DM, HTN, Smoking, COPD, CAD, Cancer, CVA, ARF, Chemo, Hep., AIDS, mental health diagnosis, sleep apnea, mor bid obesity)? @ -CAD Was patient admitted / discharged? Hospital course, mention meds given and rou te, prescriptions, significant lab abnormalities, going to OR and other pertinent info. @ -Patient presents as a STEMI. Cardiology available immediately to evaluate the patient and was in agreement with plan for disposition to catheterization lab. Patient administered IV heparin, IV fluids. Placed on pads in the monitor. Patient's labs were sent and were remarkable for troponin elevation of 0.194 after patient already was dispositioned in the [facility]. Chest x-ray unremarkable. EKG shows STEMI. Patient admitted in serious condition. I spoke with the admitting physician, Dr. Sr who was in agreement the plan. Undiagnosed new problem with uncertain prognosis? @ -No Drug Therapy requiring intensive monitoring for toxicity (Heparin, Nitro, Insulin, Cardizem)? @ -No Were any procedures done? @ -No Diagnosis/symptom? @ -STEMI Acute, or Chronic, or Acute on Chronic? @ -Acute Uncomplicated (without systemic symptoms) or Complicated (systemic symptoms)? @ -Complicated Side effects of treatment? @ -No Exacerbation, Progression, or Severe Exacerbation? @ -No Poses a threat to life or bodily function? How? (Chest pain, [place], [place], pneumonia, PE, COPD, DKA, ARF, appy, cholecystitis, CVA, Diverticulitis, Homicidal, Suicidal, threat to staff... and all critical care pts) @ -Yes - Lab Data Result diagrams: 03/05/24 09:05 03/05/24 09:05 - EKG Data -: EKG Interpreted by Me EKG Comments: 12-lead Electrocardiogram Interpretation Note EKG was reviewed and interpreted by myself. 12-lead ECG performed at 0858 is interpreted by me as revealing sinus bradycardia at a rate of 59 beats per minute. [place] is normal. NC interval is 151 ms, QRS duration is 90 ms, QTc is 389 ms. Patient has obvious ST segment elevations in leads III, aVF, 2 with reciprocal depressions in I, aVL, V2.. R wave progression across the precordium was satisfactory. This EKG is concerning for STEMI. Disposition Clinical Impression: ST elevation myocardial infarction (STEMI) Disposition: ADMITTED IP TO THIS [facility] Condition: Serious Time of Disposition: 09:10
[2024-03-05 09:15] VITALS: TEMP 96.8
[2024-03-05] MEDS: HYDROmorphone 0.5 MG/0.5 ML SYRINGE IVP ONE ×2 (09:22→10:30)
[2024-03-05] MEDS ORDERED: LIDOCAINE 1% INJ 10MG/ML (20 ML MDV) ONE (09:29)
[2024-03-05] MEDS: LIDOCAINE 1% INJ 10MG/ML (20 ML MDV) SQ ONE (09:30)
--- NOTE | 2024-03-05 09:30 | XR ---
EXAMINATION TYPE: XR chest 1V portable DATE OF EXAM: 03/05/2024 9:11 AM CLINICAL INDICATION:Female, 73 years old with history of chest pain; [facility] COMPARISON: Chest radiographs from 01/11/2022 TECHNIQUE: XR chest 1V portable Frontal view of the chest. FINDINGS: Lungs/Pleura: There is no evidence of pleural effusion, focal consolidation, or pneumothorax. Pulmonary vascularity: Unremarkable. Heart/mediastinum: Cardiomediastinal silhouette is unremarkable. Musculoskeletal: No acute osseous pathology. Midline sternotomy wires are noted. IMPRESSION: No acute cardiopulmonary disease/process.
[2024-03-05 09:36] LABS: Partial Thromboplastin Time 22.6 sec (22.0-30.0); Prothrombin Time 10.9 sec (10.0-12.5)
[2024-03-05 09:38] LABS: Carbon Dioxide 22 mmol/L (22-30); Chloride 109 mmol/L (98-107); Glucose 124 mg/dL (74-99); Sodium 137 mmol/L (137-145)
[2024-03-05 09:39] LABS: ALT 30 U/L (4-34); African American GFR (CKD) 79 (>60 ml/min/1.73 sqM); Albumin 4.2 g/dL (3.5-5.0); Anion Gap 6 mmol/L; Blood Urea Nitrogen 18 mg/dL (7-17); Calcium 9.9 mg/dL (8.4-10.2); Non-African American GFR(CKD) 69 (>60 ml/min/1.73 sqM); Total Bilirubin 0.7 mg/dL (0.2-1.3); Total Protein 7.3 g/dL (6.3-8.2)
[2024-03-05 09:44] LABS: AST 32 U/L (14-36); Alkaline Phosphatase 84 U/L (38-126); Potassium 4.4 mmol/L (3.5-5.1)
[2024-03-05] MEDS: HEPARIN SODIUM 1,000 UN/ML (10ML VL) IVP ONE ×2 (09:48→10:00)
[2024-03-05 09:59] LABS: Basophils % (A) 1 %; Eosinophils % (A) 0 %; HCT 41.4 % (34.0-46.0); HGB 13.6 gm/dL (11.4-16.0); Lymphocytes # (A) 4.3 k/uL (1.0-4.8); Lymphocytes % (A) 46 %; MCHC 32.9 g/dL (31.0-37.0); MCV 91.4 fL (80.0-100.0); Mean Platelet Volume 8.6; Monocytes # (A) 0.6 k/uL (0-1.0); Monocytes % (A) 6 %; Neutrophils # (A) 4.3 k/uL (1.3-7.7); Neutrophils % (A) 46 %; Platelet Count 184 k/uL (150-450); RBC 4.53 m/uL (3.80-5.40); RDW 12.9 % (11.5-15.5); WBC 9.4 k/uL (3.8-10.6)
--- NOTE | 2024-03-05 10:16 | P.CRDCN ---
History of Present Illness History of present illness: HISTORY OF PRESENT ILLNESS: This is a 73-year-old female with a past medical history significant for coronary artery disease with previous CABG, hypertension, and hyperlipidemia. Patient follows in the office with Dr. Maki. We have been asked to see the patient in consultation for STEMI. Patient examined at the bedside in the emergency room. Patient was brought to the hospital via EMS secondary to chest pain. Patient started having chest pain this morning at 330. She reports jewels ing nitro 3 times with little relief. Patient continues to report chest pain at the time of examination in the emergency room. EKG performed reveals ST elevation inferiorly with reciprocal changes. DIAGNOSTICS: - EKG reveals ST elevation inferiorly with reciprocal changes - Chest xray for acute process - Laboratory data: WBC 9.4. Hemoglobin 13.6. Platelet count 184. Sodium 137. Potassium 4.4. BUN 18. Creatinine 0.84. Troponin 0.194 - Current home cardiac medication list has not been updated at the time of examination REVIEW OF SYSTEMS: At the time of my exam: CONSTITUTIONAL: Denies fever or chills. HEENT: Denies blurred vision, vision changes, or eye pain. Denies hemoptysis CARDIOVASCULAR: + chest pain. Denies orthopnea. Denies PND. Denies palpitations RESPIRATORY: Denies shortness of breath. GASTROINTESTINAL: Denies abdominal pain. Denies nausea or vomiting. HEMATOLOGIC: Denies bleeding disorders. GENITOURINARY: Denies any blood in urine. SKIN: Denies pruitis. Denies rash. PHYSICAL EXAM: VITAL SIGNS: Reviewed. GENERAL: Well-developed in no mild distress. HEENT: Head is normocephalic. Pupils are equal, round. Sclerae anicteric. Mucous membranes of the mouth are moist. Neck supple. No JVD or thyromegaly LUNGS: Respirations even and unlabored. Lungs essentially clear to auscultation bilaterally. HEART: Regular rate and rhythm. S1 and S2 heard. ABDOMEN: Soft. Nondistended. Nontender. EXTREMITIES: Normal range of motion. No clubbing or cyanosis. Peripheral p ulses intact. No lower extremity edema NEUROLOGIC: Awake and alert. Oriented x 3. ASSESSMENT: Inferior STEMI Coronary artery disease with previous CABG Hypertension Hyperlipidemia PLAN: Patient presenting with STEMI. Recommend urgent cardiac cath. Patient is agreeable. Patient taken to the laboratory monitor by ER staff. Further recommendations pending patient course. Nurse practitioner note has been reviewed by physician. Signing provider agrees with the documented findings, assessment, and plan of care documented by EXCELSIOR CUTTER as a scribe. Past Medical History Past Medical History: Asthma, Chest Pain / Angina, COPD, GERD/Reflux, Hyperlipidemia, Hypertension, Osteoarthritis (OA) Additional Past Medical History / Comment(s): MIGRAINE HEADACHE,GLAUCOMA, SEE DR MILLS'S HISTORY AND PHYSICAL FOR CARDIAC HISTORY, SHORTNESS OF BREATH WITH EXERTION History of Any Multi-Drug Resistant Organisms: None Reported Past Surgical History: Cholecystectomy, Coronary Bypass/CABG, Heart Christy terization, Heart Catheterization With Stent Additional Past Surgical History / Comment(s): FRONTAL SINUS SURGERY-TUMOR OF THE BONE X3, skin cancer Past Anesthesia/Blood Transfusion Reactions: No Reported Reaction Additional Past Anesthesia/Blood Transfusion Reaction / Comment(s): "WOKE UP DURING SURGERY" ONCE Date of Last Stent Placement:: 03/19/21 Past Psychological History: No Psychological Hx Reported Smoking Status: Former smoker Past Alcohol Use History: None Reported Past Drug Use History: None Reported - Past Family History Mother Family Medical History: No Reported History Father Family Medical History: Cancer Medications and Allergies Home Medications Medication Instructions Recorded Confirmed Type Multivit-Min/FA/Lycopen/Lutein 1 tab PO DAILY 10/07/20 04/13/23 History [Centrum Silver Tablet] Potassium Chloride ER [K-Dur 10] 10 meq PO DAILY 10/07/20 04/17/23 History Albuterol Inhaler [Ventolin Hfa 1 puff INHALATION RT-QID PRN 03/18/21 04/17/23 History Inhaler] Omeprazole 40 mg PO DAILY 03/18/21 04/17/23 History Acetaminophen Tab [Tylenol] 650 mg PO Q6HR PRN tab 03/21/21 04/13/23 Rx Aspirin 81 mg PO DAILY chew 03/21/21 04/17/23 Rx Albuterol Nebulized [Ventolin 2.5 mg INHALATION Q6H PRN 04/13/23 04/17/23 Histor y Nebulized] Cyclobenzaprine [Flexeril] 10 mg PO TID PRN 04/13/23 04/13/23 History Ibuprofen [Motrin] 600 - 800 mg PO Q6HR PRN 04/13/23 04/13/23 History Loratadine [Claritin] 10 mg PO DAILY PRN 04/13/23 04/13/23 History Metoprolol Tartrate [Lopressor] 12.5 mg PO HS 04/17/23 04/17/23 History Metoprolol Tartrate [Lopressor] 25 mg PO DAILY 04/17/23 04/17/23 History Allergies Allergy/AdvReac Type Severity Reaction Status Date / Time gabapentin [From Neurontin] AdvReac Hallucinati Verified 03/05/24 09:01 ons Physical Exam Vitals: Vital Signs Temp Pulse Resp BP Pulse Ox 03/05/24 09:15 65 18 124/77 100 03/05/24 08:56 96.8 F L 61 22 140/77 100 Intake and Output 03/04/24 03/05/24 03/05/24 22:59 06:59 14:59 Other: Weight 77.791 kg Results 03/05/24 09:05 03/05/24 09:05 Cardiac Enzymes 03/05/24 03/05/24 Range/Units 09:05 09:05 AST 32 (14-36) U/L Troponin I 0.194 H* (0.000-0.034) ng/mL Coagulation 03/05/24 Range/Units 09:05 PT 10.9 (10.0-12.5) sec APTT 22.6 (22.0-30.0) sec CBC 03/05/24 Range/Units 09:05 WBC 9.4 (3.8-10.6) k/uL RBC 4.53 (3.80-5.40) m/uL Hgb 13.6 (11.4-16.0) gm/dL Hct 41.4 (34.0-46.0) % Plt Count 184 (150-450) k/uL Comprehensive Metabolic Panel 03/05/24 Range/Units 09:05 Sodium 137 (137-145) mmol/L Potassium 4.4 (3.5-5.1) mmol/L Chloride 109 H (98-107) mmol/L Carbon Dioxide 22 (22-30) mmol/L BUN 18 H (7-17) mg/dL Creatinine 0.84 (0.52-1.04) mg/dL Glucose 124 H (74-99) mg/dL Calcium 9.9 (8.4-10.2) mg/dL AST 32 (14-36) U/L ALT 30 (4-34) U/L Alkaline Phosphatase 84 (38-126) U/L Total Protein 7.3 (6.3-8.2) g/dL Albumin 4.2 (3.5-5.0) g/dL Current Medications Generic Name Dose Route Start Last Admin Trade Name Freq PRN Reason Stop Dose Admin Naloxone HCl 0.2 mg 03/05/24 09:04 Naloxone 0.4 Mg/Ml 1 Ml Vial IV Q2M PRN Opioid Reversal Intake and Output 03/04/24 03/05/24 03/05/24 22:59 06:59 14:59 Other: Weight 77.791 kg Patient Weight 03/06/24 06:59 Weight 77.791 kg 03/05/24 09:05 03/05/24 09:05
[2024-03-05 10:17] VITALS: BP 124/77; PULSE 65; RESP 18
[2024-03-05] MEDS: IOPAMIDOL-370 100ML BTL INJ ONE ×2 (10:19→10:40)
[2024-03-05] MEDS ORDERED: ONDANSETRON 4 MG/2 ML VIAL ONE (10:40)
[2024-03-05] MEDS: SODIUM CHLORIDE 0.9% 1,000 ML IV ONE (10:41)
[2024-03-05] MEDS: ONDANSETRON 4 MG/2 ML VIAL IVP ONE (10:41)
--- NOTE | 2024-03-05 20:57 | CC ---
CARDIAC CATHETERIZATION REPORT PROCEDURES PERFORMED: 1. Left heart catheterization and coronary angiography with selective injection of bypass graft. 2. Percutaneous transluminal coronary angioplasty. 3. of proximal right coronary artery. PERFORMED BY: Dr. Paty Maki. ANESTHESIA: Moderate conscious sedation time was 72 minutes. The patient was administered Versed and Dilaudid. Oxygen saturation, hemodynamics, and EKG were monitored closely. CLINICAL INFORMATION: Ms. Erica Rueda is a 73-year-old lady, who has been brought into the hospital with chest pain from nearly 3:30 a.m. onwards, had inferior ST elevation. She has history of CAD with prior bypass surgery in 2004. She had 2 vein grafts and a FOOTE. FOOTE was placed to the LAD, vein grafts were placed to the diagonal and obtuse marginal branch of circumflex. Apparently, she had another graft to the PDA, but this was never visualized on cardiac catheterizations after the bypass surgery. In 2020, I performed a repeat intervention of the diagonal graft that was occluded. I placed a 2.75 caliber Xience stent. A repeat cardiac cath was performed in March 2023, which revealed severe progression of disease in her [place] vessels including the RCA that was never grafted. Left main and circumflex and LAD were all totally occluded. Vein graft to the diagonal and obtuse marginal were patent and FOOTE to LAD was also patent. She presented this time with inferior ST-elevation PA and I suspected the right coronary artery was the culprit lesion. PROCEDURE NOTE: Under local anesthesia and strict aseptic precautions, a 6-I[place] introducer was placed in the right femoral artery. I started off with a right Malorie guide catheter. Initial injection revealed that there was a subtotal occlusion in the proximal RCA. I had a lot of difficulty with the guide support. After much effort, I advanced a 0.014 run-through wire and wire was kept distally and I gave 1 single inflation in the proximal RCA. After this, the caliber of the vessel improved and overall flow improved. I had multiple attempts after that to advance a 1.5 balloon. I could not do it after much effort. I changed the guide catheter to AL0.75 with a GuideLiner. Even with this combination, I was able to only use a 1.0 mm balloon. I had a lot of difficulty. The patient's chest pain improved. EKG improved, but subsequently she had more chest discomfort and also the ST segments went up slightly. At this point, I felt that I could not successfully open up the vessel and therefore, I was going to send her to a tertiary care center, [facility]. I recommended transfer by [facility] and I spoke to the interventionalist at [facility]. Dr. Mon. He accepted the patient and we will be transferring her expeditiously. CARDIAC CATHETERIZATION FINDINGS: The left ventricular end-diastolic pressure was 14 mmHg without any gradient across the aortic valve. CORONARY ANGIOGRAPHY FINDINGS: RIGHT CORONARY ARTERY: This vessel is heavily calcified and has ostial lesion of about 40% proximal subtotal 90% lesion with calcification beyond which the caliber improves, and distally at the bifurcation also she has a tight lesion and there are 2 large PDA and PLV branches, both of which have calcification and mild diffuse disease. The ostium has 50% proximal, has 90% calcified. LEFT MAIN CORONARY ARTERY: This vessel was not well opacified. It could not be cannulated or injected, appears to be totally occluded. The entire left system has very limited flow noted. Entire left system is therefore not opacified and appears to be subtotally occluded and this was also seen on the previous cardiac cath from March 2023. SAPHENOUS VEIN GRAFT TO THE OBTUSE MARGINAL BRANCH OF CIRCUMFLEX: This graft is widely patent with good flow and distally the obtuse marginal branch is well opacified, has minor irregularities. SAPHENOUS VEIN GRAFT TO THE DIAGONAL BRANCH OF LAD: This graft was previously stented, widely patent with good flow. No significant disease. Proximal portion has about a 40% narrowing. Left internal mammary artery graft was not injected. FINAL IMPRESSION: This patient has slightly elevated filling pressures, no gradient, significant lesion in the ostium and proximal RCA which was not grafted, heavily calcified. Left system is totally occluded. Vein graft to the obtuse marginal and diagonal are patent. FOOTE was not injected. RECOMMENDATIONS: I performed PTCA of the proximal LAD, but I could not perform a successful procedure. Therefore, the patient will be transferred with the sheath sutured into [facility] by [facility]. I explained in detail the findings and procedure details etc., to the patient as well as her daughter. MMODL / IJN: [id number] /
== END 2024-03-05 11:34 | disposition short-term general hospital (02) | DRG 251 ==
LOC: EC 08:55 → 2SICU 09:04
PROVIDERS: ADMIT Family Medicine; ATTEND Family Medicine
PROC: B2101ZZ Fluoroscopy of Single Coronary Artery using Low Osmolar Contrast (ICD-10-PCS; principal; 2024-03-05 13:05)
PROC: B2121ZZ Fluoroscopy of Single Coronary Artery Bypass Graft using Low Osmolar Contrast (ICD-10-PCS; principal; 2024-03-05 13:05)
PROC: 4A023N7 Measurement of Cardiac Sampling and Pressure, Left Heart, Percutaneous Approach (ICD-10-PCS; principal; 2024-03-05 13:05)
PROC: 02703ZZ Dilation of Coronary Artery, One Artery, Percutaneous Approach (ICD-10-PCS; principal; 2024-03-05 13:05)
DX: I21.19 ST elevation (STEMI) myocardial infarction involving other coronary artery of inferior wall (principal); E78.5 Hyperlipidemia, unspecified; I25.10 Atherosclerotic heart disease of native coronary artery without angina pectoris; I10 Essential (primary) hypertension; H40.9 Unspecified glaucoma; K21.9 Gastro-esophageal reflux disease without esophagitis; J44.9 Chronic obstructive pulmonary disease, unspecified; Z87.891 Personal history of nicotine dependence; Z53.09 Procedure and treatment not carried out because of other contraindication; Z79.82 Long term (current) use of aspirin; Z79.899 Other long term (current) drug therapy; Z85.828 Personal history of other malignant neoplasm of skin; Z95.1 Presence of aortocoronary bypass graft; Z95.5 Presence of coronary angioplasty implant and graft; Z88.8 Allergy status to other drugs, medicaments and biological substances
CPT/HCPCS: 36415; 71045; 80053; 84484; 85025; 85610; 85730; 92920; 93005; 93459; 96374; 99285

== ENCOUNTER 2024-03-22 10:25 | Emergency (ER) | payer MEDICARE ==
[2024-03-22 10:36] VITALS: RESP 18; TEMP 98
--- NOTE | 2024-03-22 10:59 | ED ---
Extremity Problem HPI - General Source: patient, RN notes reviewed Mode of arrival: ambulatory Limitations: no limitations <Savannah Guerra - Last Filed: 03/22/24 10:58> <Yolanda Matthews - Last Filed: 03/22/24 17:01> - General Chief complaint: Extremity Problem,Nontraumatic Stated complaint: R sided hip pain Time Seen by Provider: 03/22/24 10:58 - History of Present Illness Initial comments: Note: 73-year-old female presenting to the ER with a chief complaint of right groin pain. On 03-05-2024 patient had an ID and underwent 2 cardiac catheterizations. One by Dr. Maki and another by [facility]. Patient received 3 stents. She states she is still experiencing right groin pain. She does report a knot in the area as well. She denies any fevers or chills. (Savannah Guerra) 73-year-old female presenting to the ER with right groin pain. On March 05 patient had an ID [address] Maki performed the initial catheterization and at that time transferred the patient to [facility] because they did not have the equipment to get through the blockage. Patient received a total of 3 stents. She states she has been having pain since the catheterizations however the pain is worsening and radiates down the leg. She reports feeling like the area is spasming and feels as though there is a knot in the area. She reports that the pain is constant and not better or worse with weightbearing. Denies any new chest pain or shortness of breath. Patient is on blood thinners. Denies any leg swelling. (Yolanda Matthews) - Related Data Home Medications Medication Instructions Recorded Confirmed Multivit-Min/FA/Lycopen/Lutein 1 tab PO DAILY 10/07/20 04/13/23 [Centrum Silver Tablet] Potassium Chloride ER [K-Dur 10] 10 meq PO DAILY 10/07/20 04/17/23 Albuterol Inhaler [Ventolin Hfa 1 puff INHALATION RT-QID PRN 03/18/21 04/17/23 Inhaler] Omeprazole 40 mg PO DAILY 03/18/21 04/17/23 Albuterol Nebulized [Ventolin 2.5 mg INHALATION Q6H PRN 04/13/23 04/17/23 Nebulized] Cyclobenzaprine [Flexeril] 10 mg PO TID PRN 04/13/23 04/13/23 Ibuprofen [Motrin] 600 - 800 mg PO Q6HR PRN 04/13/23 04/13/23 Loratadine [Claritin] 10 mg PO DAILY PRN 04/13/23 04/13/23 Metoprolol Tartrate [Lopressor] 12.5 mg PO HS 04/17/23 04/17/23 Metoprolol Tartrate [Lopressor] 25 mg PO DAILY 04/17/23 04/17/23 Previous Rx's Medication Instructions Recorded Acetaminophen Tab [Tylenol] 650 mg PO Q6HR PRN tab 03/21/21 Aspirin 81 mg PO DAILY chew 03/21/21 Allergies Allergy/AdvReac Type Severity Reaction Status Date / Time gabapentin [From Neurontin] AdvReac Hallucinati Verified 03/22/24 10:30 ons Review of Systems ROS Other: All systems not noted in ROS Statement are negative. <Savannah Guerra - Last Filed: 03/22/24 10:58> ROS Other: All systems not noted in ROS Statement are negative. <Yolanda Matthews - Last Filed: 03/22/24 17:01> ROS Statement: Those systems with pertinent positive or pertinent negative responses have been documented in the HPI. Past Medical History Past Medical History: Asthma, Chest Pain / Angina, COPD, GERD/Reflux, Hyperlipidemia, Hypertension, Osteoarthritis (OA) Additional Past Medical History / Comment(s): MIGRAINE HEADACHE,GLAUCOMA, SEE DR MILLS'S HISTORY AND PHYSICAL FOR CARDIAC HISTORY, SHORTNESS OF BREATH WITH EXERTION History of Any Multi-Drug Resistant Organisms: None Reported Past Surgical History: Heart Catheterization With Stent Additional Past Surgical History / Comment(s): FRONTAL SINUS SURGERY-TUMOR OF THE BONE X3 Past Anesthesia/Blood Transfusion Reactions: No Reported Reaction Additional Past Anesthesia/Blood Transfusion Reaction / Comment(s): "WOKE UP DURING SURGERY" ONCE Date of Last Stent Placement:: 03/19/21 Past Psychological History: No Psychological Hx Reported Smoking Status: Former smoker Past Alcohol Use History: None Reported Past Drug Use History: None Reported - Past Family History Mother Family Medical History: No Reported History Father Family Medical History: Cancer <Savannah Guerra - Last Filed: 03/22/24 10:58> General Exam Limitations: no limitations <Savannah Guerra - Last Filed: 03/22/24 10:58> General appearance: alert, in no apparent distress Head exam: Present: atraumatic, normocephalic, normal inspection Eye exam: Present: normal appearance, PERRL, EOMI. Absent: scleral icterus, conjunctival injection, periorbital swelling ENT exam: Present: normal exam, mucous membranes moist Neck exam: Present: normal inspection. Absent: tenderness, meningismus, lymphadenopathy Respiratory exam: Present: normal lung sounds bilaterally. Absent: respiratory distress, wheezes, rales, rhonchi, stridor Cardiovascular Exam: Present: regular rate, normal rhythm, normal heart sounds. Absent: systolic murmur, diastolic murmur, rubs, gallop, clicks Right Hip exam: Present: normal inspection, full ROM. Absent: tenderness, swelling Upper Leg exam: Present: full ROM, tenderness. Absent: normal inspection (1 x 1 cm area of erythema and tenderness along right inguinal area. No fluctuant mass, no surrounding erythema.), swelling Knee exam: Present: normal inspection, full ROM. Absent: tenderness, swelling Lower Leg exam: Present: normal inspection, full ROM. Absent: tenderness, swelling Ankle exam: Present: normal inspection, full ROM. Absent: tenderness, swelling Foot/Toe exam: Present: normal inspection, full ROM. Absent: tenderness, swelling Neurovascular tendon exam: Present: no vascular compromise. Absent: pulse deficit (Dorsalis pedis pulses intact) <Yolanda Matthews - Last Filed: 03/22/24 17:01> - General Exam Comments Initial Comments: Visual Physical Exam Vital signs reviewed General: Well-appearing, nontoxic, no acute distress. Head: Normocephalic, atraumatic Eyes: PERRLA, EOMI ENT: Airway patent Chest: Nonlabored breathing Skin: No visual rash, normal skin tone Neuro: Alert and oriented 3 Musculoskeletal: No gross abnormalities (Savannah Guerra) Course Vital Signs 03/22/24 03/22/24 10:27 13:16 Temperature 98 F Pulse Rate 82 80 Respiratory 18 18 Rate Blood Pressure 126/80 132/78 O2 Sat by Pulse 98 98 Oximetry Medical Decision Making <Savannah Guerra - Last Filed: 03/22/24 10:58> - Lab Data Result diagrams: 03/22/24 11:45 03/22/24 11:49 <Yolanda Matthews - Last Filed: 03/22/24 17:01> - Medical Decision Making I performed the quick note portion of this chart. Electronically signed by Savannah Guerra PA-C (Savannah Guerra) Was pt. sent in by a medical professional or institution ([facility] [place], [employer], urgent care, hospital, or snf...) When possible be specific @ -No Did you speak to anyone other than the patient for history (EMS, parent, family, police, friend...)? What history was obtained from this source @ -No Did you review nursing and triage notes (agree or disagree)? Why? @ -I reviewed and agree with nursing and triage notes Were old charts reviewed (outside hosp., previous admission, EMS record, old EKG, old radiological studies, urgent care reports/EKG's, snf records)? Report findings @ -No old charts were reviewed Differential Diagnosis (chest pain, altered mental status, abdominal pain women, abdominal pain men, vaginal bleeding, weakness, fever, dyspnea, syncope, headache, dizziness, GI bleed, back pain, seizure, CVA, palpatations, mental health, musculoskeletal)? @ -DVT, cellulitis, abscess, pseudoaneurysm, musculoskeletal strain EKG interpreted by me (3pts min.). @ -None X-rays interpreted by me (1pt min.). @ -None done CT interpreted by me (1pt min.). @ -None done U/S interpreted by me (1pt. min.). @ -Ultrasound revealed no DVT, however there is hypodense area adjacent to com mon femoral artery, possible thrombosed pseudo aneurysm What testing was considered but not performed or refused? (CT, X-rays, U/S, labs)? Why? @ -None What meds were considered but not given or refused? Why? @ -None Did you discuss the management of the patient with other professionals (professionals i.e. [facility] [place], [employer], lab, RT, psych nurse, director of social services, digital cartographic technician, teacher, commissioned police officer, casework manager)? Give summary @ -Case discussed with Dr. Maki, Dr. Maki states that pseudoaneurysm is clotted and therefore patient can be discharged with repeat ultrasound in 1 week. Was smoking cessation discussed for >3mins.? @ -No Was critical care preformed (if so, how long)? @ -No Were there social determinants of health that impacted care today? How? (Homelessness, low income, unemployed, alcoholism, drug addiction, transportation, low edu. Level, literacy, decrease access to med. care, retirement, rehab)? @ -No Was there de-escalation of care discussed even if they declined (Discuss DNR or withdrawal of care, Hospice)? DNR status @ -No What co-morbidities impacted this encounter? (DM, HTN, Smoking, COPD, CAD, Cancer, CVA, ARF, Chemo, Hep., AIDS, mental health diagnosis, sleep apnea, morbid obesity)? @ -None Was patient admitted / discharged? Hospital course, mention meds given and route, prescriptions, significant lab abnormalities, going to OR and other pertinent info. @ -Patient was discharged. Patient was seen and evaluated for right groin pain x 2 weeks status post cardiac catheterization. Patient is neurovascularly intact. No sign of bacterial infection. Ultrasound reveals no DVT, however there is a hypodense area adjacent to common femoral artery, possible thrombosed pseudoaneurysm. Case was discussed with Dr. Maki who recommends patient discharge with repeat ultrasound in 1 week. Pseudoaneurysm diagnosis discussed with patient in detail. Strict return/alarm symptoms discussed with patient in detail and patient shows understanding and agrees to plan. Prescription given for repeat ultrasound in 1 week. Tylenol threes given for pain. Patient discharged in stable condition. Case discussed with Dr. Richard. Undiagnosed new problem with uncertain prognosis? @ -No Drug Therapy requiring intensive monitoring for toxicity (Heparin, Nitro, Insulin, Cardizem)? @ -No Were any procedures done? @ -No Diagnosis/symptom? @ -Pseudoaneurysm of right common femoral artery Acute, or Chronic, or Acute on Chronic? @ -Acute Uncomplicated (without systemic symptoms) or Complicated (systemic symptoms)? @ -Uncomplicated Side effects of treatment? @ -No Exacerbation, Progression, or Severe Exacerbation? @ -No Poses a threat to life or bodily function? How? (Chest pain, USA, ID, pneumonia, PE, COPD, DKA, ARF, appy, cholecystitis, CVA, Diverticulitis, Homicidal, Suicidal, threat to staff... and all critical care pts) @ -Low likelihood (Yolanda Matthews) - Lab Data Lab Results 03/22/24 03/22/24 Range/Units 11:45 11:49 WBC 7.8 (3.8-10.6) k/uL RBC 4.29 (3.80-5.40) m/uL Hgb 12.9 (11.4-16.0) gm/dL Hct 37.8 (34.0-46.0) % MCV 88.2 (80.0-100.0) fL MCH 30.0 (25.0-35.0) pg MCHC 34.0 (31.0-37.0) g/dL RDW 13.1 (11.5-15.5) % Plt Count 237 (150-450) k/uL MPV 7.9 Neutrophils % 61 % Lymphocytes % 30 % Monocytes % 6 % Eosinophils % 1 % Basophils % 0 % Neutrophils # 4.7 (1.3-7.7) k/uL Lymphocytes # 2.3 (1.0-4.8) k/uL Monocytes # 0.5 (0-1.0) k/uL Eosinophils # 0.1 (0-0.7) k/uL Basophils # 0.0 (0-0.2) k/uL Sodium 140 (137-145) mmol/L Potassium 3.8 (3.5-5.1) mmol/L Chloride 107 (98-107) mmol/L Carbon Dioxide 28 (22-30) mmol/L Anion Gap 5 mmol/L BUN 13 (7-17) mg/dL Creatinine 0.88 (0.52-1.04) mg/dL Est GFR (CKD-EPI)AfAm 75 (>60 ml/min/1.73 sqM) Est GFR (CKD-EPI)NonAf 65 (>60 ml/min/1.73 sqM) Glucose 96 (74-99) mg/dL Calcium 9.8 (8.4-10.2) mg/dL Total Bilirubin 0.6 (0.2-1.3) mg/dL AST 34 (14-36) U/L ALT 29 (4-34) U/L Alkaline Phosphatase 77 (38-126) U/L Total Protein 7.0 (6.3-8.2) g/dL Albumin 4.2 (3.5-5.0) g/dL Disposition <Savannah Guerra - Last Filed: 03/22/24 10:58> Is patient prescribed a controlled substance at d/c from ED?: No Time of Disposition: 12:50 <Yolanda Matthews - Last Filed: 03/22/24 17:01> Clinical Impression: Pseudoaneurysm following procedure Disposition: HOME SELF-CARE Condition: Stable Additional Instructions: Please follow-up in 1 week for repeat ultrasound. Please return to the Emergency Department if symptoms worsen or any other concerns. Referrals: Raúl Bangura MD [Primary Care Provider] - 1-2 days
--- NOTE | 2024-03-22 11:07 | US ---
EXAMINATION TYPE: US venous doppler duplex LE RT DATE OF EXAM: 03/22/2024 10:51 AM COMPARISON: NONE CLINICAL INDICATION: Female, 73 years old with history of rule out dvt; Recent multiple heart caths w ith stent placement and ?calcification removal from abdominal aorta; Hx quadruple bypass and MS; On t hinners SIDE PERFORMED: Right TECHNIQUE: The lower extremity deep venous system is examined utilizing real time linear array sonog kirstie with graded compression, doppler sonography and color-flow sonography. VESSELS IMAGED: Common Femoral Vein Deep Femoral Vein Greater Saphenous Vein * Femoral Vein Popliteal Vein Small Saphenous Vein * Proximal Calf Veins (* superficial vessels) Right Leg: Negative for DVT; ? potential clotted pseduoaneurysm at [employer] IMPRESSION: 1. No deep venous thrombosis radiographically apparent. 2. Hypodense area adjacent to the common femoral artery. Thrombosed pseudoaneurysm could be considere d. Follow-up can be performed as clinically indicated
[2024-03-22 12:00] LABS: Basophils % (A) 0 %; Eosinophils # (A) 0.1 k/uL (0-0.7); Eosinophils % (A) 1 %; HCT 37.8 % (34.0-46.0); HGB 12.9 gm/dL (11.4-16.0); Lymphocytes # (A) 2.3 k/uL (1.0-4.8); Lymphocytes % (A) 30 %; MCV 88.2 fL (80.0-100.0); Mean Platelet Volume 7.9; Monocytes # (A) 0.5 k/uL (0-1.0); Monocytes % (A) 6 %; Neutrophils # (A) 4.7 k/uL (1.3-7.7); Neutrophils % (A) 61 %; Platelet Count 237 k/uL (150-450); RBC 4.29 m/uL (3.80-5.40); RDW 13.1 % (11.5-15.5); WBC 7.8 k/uL (3.8-10.6)
[2024-03-22 12:23] LABS: ALT 29 U/L (4-34); AST 34 U/L (14-36); African American GFR (CKD) 75 (>60 ml/min/1.73 sqM); Albumin 4.2 g/dL (3.5-5.0); Alkaline Phosphatase 77 U/L (38-126); Anion Gap 5 mmol/L; Blood Urea Nitrogen 13 mg/dL (7-17); Calcium 9.8 mg/dL (8.4-10.2); Carbon Dioxide 28 mmol/L (22-30); Chloride 107 mmol/L (98-107); Glucose 96 mg/dL (74-99); Non-African American GFR(CKD) 65 (>60 ml/min/1.73 sqM); Potassium 3.8 mmol/L (3.5-5.1); Sodium 140 mmol/L (137-145); Total Bilirubin 0.6 mg/dL (0.2-1.3)
[2024-03-22] MEDS: ACET/COD 300 MG/30 MG STARTER PACK 6 TAB BTL PO STA (13:13)
[2024-03-22 13:21] VITALS: BP 132/78; PULSE 80
== END 2024-03-22 13:17 | disposition home or self-care (01) ==
LOC: EC 10:25
DX: I72.4 Aneurysm of artery of lower extremity (principal); Z88.8 Allergy status to other drugs, medicaments and biological substances; Z87.891 Personal history of nicotine dependence
CPT/HCPCS: 36415; 80053; 85025; 99284

== ENCOUNTER → 2024-04-03 | Outpatient (CLI) | payer MEDICARE ==
--- NOTE | 2024-04-03 16:21 | US ---
EXAMINATION TYPE: US lower ext pseudo artery RT DATE OF EXAM: 04/03/2024 COMPARISON: 03/22/2024 CLINICAL INDICATION: Female, 73 years old with history of I72.9 ANEURYSM OF UNSPECIFIED SITE; Right C FA pseudo EXAM PERFORMED: Grayscale and color Doppler duplex imaging performed of the groin, post cardiac vale ter to assess for pseudoaneurysm. SIDE PERFORMED: Right Color and Waveform Doppler performed to assess for the presence of pseudoaneurysm; Is there ultrasound evidence of a pseudoaneurysm: ? Pseudo vs hematoma Is there evidence of AV shunting: No Is there a fluid collection present: No There is a stable hypodense area adjacent to the common femoral artery without internal color flow id entified measuring 1.2 x 2.0 x 0.6 cm. Previously measured 1.1 x 1.7 x 0.8 cm. IMPRESSION: Stable hypodense area adjacent to the common femoral artery which may represent a thrombosed pseudoan eurysm versus less likely hematoma. No internal color flow is identified.
== END | disposition home or self-care (01) ==
LOC: RADUSWWP 12:19
PROVIDERS: ATTEND Internal Medicine Interventional Cardiology
DX: I72.4 Aneurysm of artery of lower extremity (principal)
CPT/HCPCS: 93975

== ENCOUNTER 2024-06-18 13:07 | Inpatient (IN) | payer MEDICARE ==
--- NOTE | 2024-06-18 13:43 | ED ---
General Adult HPI - General Chief complaint: Chest Pain Stated complaint: Chest pain Time Seen by Provider: 06/18/24 13:22 Source: patient Mode of arrival: ambulatory Limitations: no limitations - History of Present Illness Initial comments: Dictation was produced using [employer] dictation software. please excuse any grammatical, word or spelling errors. Chief Complaint: 73-year-old female with extensive history of coronary artery disease presents to the ER for chest pain History of Present Illness: Patient 73-year-old female show extensive history of coronary artery disease presents emergency department chest pain. States that it she had a pressure that radiated to her right jaw. She took a nitroglycerin which improved her symptoms. Patient has extensive history of coronary artery disease she has multiple coronary artery stents. Patient after taking the nitroglycerin states that her pain is significantly improved and only a mild residual symptom is felt. Patient denies any shortness of breath. Patient's where she is having a recurrent heart attack The ROS documented in this emergency department record has been reviewed and confirmed by me. Those systems with pertinent positive or negative responses have been documented in the HPI. All other systems are other negative and/or noncontributory. - Related Data Home Medications Medication Instructions Recorded Confirmed Multivit-Min/FA/Lycopen/Lutein 1 tab PO DAILY 10/07/20 04/13/23 [Centrum Silver Tablet] Potassium Chloride ER [K-Dur 10] 10 meq PO DAILY 10/07/20 04/17/23 Albuterol Inhaler [Ventolin Hfa 1 puff INHALATION RT-QID PRN 03/18/21 04/17/23 Inhaler] Omeprazole 40 mg PO DAILY 03/18/21 04/17/23 Albuterol Nebulized [Ventolin 2.5 mg INHALATION Q6H PRN 04/13/23 04/17/23 Nebulized] Cyclobenzaprine [Flexeril] 10 mg PO TID PRN 04/13/23 04/13/23 Ibuprofen [Motrin] 600 - 800 mg PO Q6HR PRN 04/13/23 04/13/23 Loratadine [Claritin] 10 mg PO DAILY PRN 04/13/23 04/13/23 Metoprolol Tartrate [Lopressor] 12.5 mg PO HS 04/17/23 04/17/23 Metoprolol Tartrate [Lopressor] 25 mg PO DAILY 04/17/23 04/17/23 Previous Rx's Medication Instructions Recorded Acetaminophen Tab [Tylenol] 650 mg PO Q6HR PRN tab 03/21/21 Aspirin 81 mg PO DAILY chew 03/21/21 Allergies Allergy/AdvReac Type Severity Reaction Status Date / Time gabapentin [From Neurontin] AdvReac Hallucinati Verified 06/18/24 13:11 ons Review of Systems ROS Statement: Those systems with pertinent positive or pertinent negative responses have been documented in the HPI. ROS Other: All systems not noted in ROS Statement are negative. Past Medical History Past Medical History: Asthma, Chest Pain / Angina, COPD, GERD/Reflux, Hyperlipidemia, Hypertension, Osteoarthritis (OA) Additional Past Medical History / Comment(s): MIGRAINE HEADACHE,GLAUCOMA, SEE DR MILLS'S HISTORY AND PHYSICAL FOR CARDIAC HISTORY, SHORTNESS OF BREATH WITH EXERTION History of Any Multi-Drug Resistant Organisms: None Reported Past Surgical History: Heart Catheterization With Stent Additional Past Surgical History / Comment(s): FRONTAL SINUS SURGERY-TUMOR OF THE BONE X3 Past Anesthesia/Blood Transfusion Reactions: No Reported Reaction Additional Past Anesthesia/Blood Transfusion Reaction / Comment(s): "WOKE UP DURING SURGERY" ONCE Date of Last Stent Placement:: 03/19/21 Past Psychological History: No Psychological Hx Reported Smoking Status: Former smoker Past Alcohol Use History: None Reported Past Drug Use History: None Reported - Past Family History Mother Family Medical History: No Reported History Father Family Medical History: Cancer General Exam - General Exam Comments Initial Comments: PHYSICAL EXAM: General Impression: Alert and oriented x3, not in acute distress HEENT: Normocephalic atraumatic, extra-ocular movements intact, pupils equal and reactive to light bilaterally, mucous membranes moist. Cardiovascular: Heart regular rate and rhythm Chest: Able to complete full sentences, no retractions, no tachypnea Abdomen: abdomen soft, non-tender, non-distended, no organomegaly Musculoskeletal: Pulses present and equal in all extremities, no peripheral edema Motor: no focal deficits noted Neurological: CN II-XII grossly intact, no focal motor or sensory deficits noted Skin: Intact with no visualized rashes Psych: Normal affect and mood Limitations: no limitations Course Vital Signs 06/18/24 13:08 Temperature 98.0 F Pulse Rate 64 Respiratory 18 Rate Blood Pressure 123/76 O2 Sat by Pulse 99 Oximetry EKG Findings - EKG Comments: EKG Findings:: My EKG interpretation: Ventricular rate 58, sinus bradycardia, DC interval 140, QRS 85, QTc 4 6. No DC prolongation, no QTC prolongation, no ST or T-wave changes noted. T wave inversions in the septal precordial leads. Significant improved compared to previous EKGs. Overall his EKG is unremarkable Medical Decision Making - Medical Decision Making Was pt. sent in by a medical professional or institution (, PA, MARKETING COMMUNICATIONS LEADER, urgent care, hospital, or senior care...) When possible be specific @ -No Did you speak to anyone other than the patient for history (EMS, parent, family, police, friend...)? What history was obtained from this source @ -No Did you review nursing and triage notes (agree or disagree)? Why? @ -I reviewed and agree with nursing and triage notes Were old charts reviewed (outside hosp., previous admission, EMS record, old EKG, old radiological studies, urgent care reports/EKG's, senior care records)? Report findings @ -No old charts were reviewed Differential Diagnosis (chest pain, altered mental status, abdominal pain women, abdominal pain men, vaginal bleeding, musculoskeletal, weakness, fever, dyspnea, syncope, headache, dizziness, GI bleed, back pain, seizure, CVA, palpatations, mental health)? @ -Differential Chest Pain: Stable Angina, Unstable Angina, STEMI, NSTEMI Aortic Dissection, Pneumothorax, Musculoskeletal, Esophageal Spasm GERD, Cholecystitis, Pancreatitis, Zoster, this is not meant to be an all-inclusive list. EKG interpreted by me (3pts min.). @ -See above X-rays interpreted by me (1pt min.). @ -Chest x-ray shows no acute processes CT interpreted by me (1pt min.). @ -None done U/S interpreted by me (1pt. min.). @ -None done What testing was considered but not performed or refused? (CT, X-rays, U/S, labs)? Why? @ -None What meds were considered but not given or refused? Why? @ -None Was smoking cessation discussed for >3mins.? @ -No Were there social determinants of health that impacted care today? How? (Homelessness, low income, unemployed, alcoholism, drug addiction, transportation, low edu. Level, literacy, decrease access to med. care, senior living, rehab)? @ -No Was there de-escalation of care discussed even if they declined (Discuss DNR or withdrawal of care, Hospice)? DNR status @ -No What co-morbidities impacted this encounter? (DM, HTN, Smoking, COPD, CAD, Cancer, CVA, ARF, Chemo, Hep., AIDS, mental health diagnosis, sleep apnea, morbid obesity)? @ -Coronary artery disease Was patient admitted / discharged? Hospital course, mention meds given and route , prescriptions, significant lab abnormalities, going to OR and other pertinent info. @ -73-year-old female with extensive history of acute coronary syndrome presents to the ER for chest pain. Her symptoms are concerning for acute coronary syndrome. Vital signs upon arrival are within acceptable limits. EKG is unremarkable. Laboratory evaluation obtained. CBC, coag panel metabolic panel is within acceptable limits. Troponin is negative. Patient placed on nitroglycerin drip with management of patient's symptoms. Patient also given aspirin will be admitted Did you discuss the management of the patient with other professionals (professionals i.e. , PA, MARKETING COMMUNICATIONS LEADER, lab, RT, psych nurse, social psychologist, anesthesiology crna, teacher, commanding officer garage, renal case manager)? Give summary @ -Discussed with Dr. Campa for admission Was critical care preformed (if so, how long)? @ -Yes, 33 minutes Undiagnosed new problem with uncertain prognosis? @ -No Drug Therapy requiring intensive monitoring for toxicity (Heparin, Nitro, Insulin, Cardizem)? @ -No Were any procedures done? @ -No Diagnosis/symptom? Acute, or Chronic, or Acute on Chronic? Uncomplicated (without systemic symptoms) or Complicated (systemic symptoms)? @ -Acute coronary syndrome Side effects of treatment? @ -No Exacerbation, Progression, or Severe Exacerbation? @ -No Poses a threat to life or bodily function? How? (Chest pain, [place], [place], pneumonia, PE, COPD, DKA, ARF, appy, cholecystitis, CVA, Diverticulitis, Homicidal, Suicidal, threat to staff... and all critical care pts) @ -yes - Lab Data Result diagrams: 06/18/24 13:49 06/18/24 13:49 Lab Results 06/18/24 06/18/24 06/18/24 Range/Units 13:49 13:49 13:49 WBC 7.3 (3.8-10.6) k/uL RBC 4.18 (3.80-5.40) m/uL Hgb 12.6 (11.4-16.0) gm/dL Hct 38.1 (34.0-46.0) % MCV 91.3 (80.0-100.0) fL MCH 30.1 (25.0-35.0) pg MCHC 32.9 (31.0-37.0) g/dL RDW 14.0 (11.5-15.5) % Plt Count 182 (150-450) k/uL MPV 8.1 Neutrophils % 57 % Lymphocytes % 33 % Monocytes % 7 % Eosinophils % 1 % Basophils % 0 % Neutrophils # 4.2 (1.3-7.7) k/uL Lymphocytes # 2.4 (1.0-4.8) k/uL Monocytes # 0.5 (0-1.0) k/uL Eosinophils # 0.1 (0-0.7) k/uL Basophils # 0.0 (0-0.2) k/uL PT 11.3 (10.0-12.5) sec INR 1.0 (<1.2) APTT 23.7 (22.0-30.0) sec Sodium 137 (137-145) mmol/L Potassium 4.5 (3.5-5.1) mmol/L Chloride 107 (98-107) mmol/L Carbon Dioxide 26 (22-30) mmol/L Anion Gap 4 mmol/L BUN 12 (7-17) mg/dL Creatinine 0.71 (0.52-1.04) mg/dL Est GFR (CKD-EPI)AfAm >90 (>60 ml/min/1.73 sqM) Est GFR (CKD-EPI)NonAf 85 (>60 ml/min/1.73 sqM) Glucose 100 H (74-99) mg/dL Calcium 9.4 (8.4-10.2) mg/dL Magnesium 1.8 (1.6-2.3) mg/dL Total Bilirubin 0.8 (0.2-1.3) mg/dL AST 40 H (14-36) U/L ALT 29 (4-34) U/L Alkaline Phosphatase 62 (38-126) U/L Troponin I (0.000-0.034) ng/mL Total Protein 6.7 (6.3-8.2) g/dL Albumin 3.9 (3.5-5.0) g/dL 06/18/24 Range/Units 13:49 WBC (3.8-10.6) k/uL RBC (3.80-5.40) m/uL Hgb (11.4-16.0) gm/dL Hct (34.0-46.0) % MCV (80.0-100.0) fL MCH (25.0-35.0) pg MCHC (31.0-37.0) g/dL RDW (11.5-15.5) % Plt Count (150-450) k/uL MPV Neutrophils % % Lymphocytes % % Monocytes % % Eosinophils % % Basophils % % Neutrophils # (1.3-7.7) k/uL Lymphocytes # (1.0-4.8) k/uL Monocytes # (0-1.0) k/uL Eosinophils # (0-0.7) k/uL Basophils # (0-0.2) k/uL PT (10.0-12.5) sec INR (<1.2) APTT (22.0-30.0) sec Sodium (137-145) mmol/L Potassium (3.5-5.1) mmol/L Chloride (98-107) mmol/L Carbon Dioxide (22-30) mmol/L Anion Gap mmol/L BUN (7-17) mg/dL Creatinine (0.52-1.04) mg/dL Est GFR (CKD-EPI)AfAm (>60 ml/min/1.73 sqM) Est GFR (CKD-EPI)NonAf (>60 ml/min/1.73 sqM) Glucose (74-99) mg/dL Calcium (8.4-10.2) mg/dL Magnesium (1.6-2.3) mg/dL Total Bilirubin (0.2-1.3) mg/dL AST (14-36) U/L ALT (4-34) U/L Alkaline Phosphatase (38-126) U/L Troponin I <0.012 (0.000-0.034) ng/mL Total Protein (6.3-8.2) g/dL Albumin (3.5-5.0) g/dL Disposition Clinical Impression: ACS (acute coronary syndrome) Disposition: ADMITTED IP TO THIS [facility] Condition: Serious Referrals: Yann Sena Jr, [Primary Care Provider] - 1-2 days Decision Time: 15:39
[2024-06-18] MEDS: ASPIRIN 81 MG PO STA (14:00)
[2024-06-18] MEDS: NITROGLYCERIN-D5W PMX 50 MG in DEXTROSE/WATER 1 250ML.BAG IV ONE (14:01)
[2024-06-18 14:11] LABS: Basophils % (A) 0 %; Eosinophils # (A) 0.1 k/uL (0-0.7); Eosinophils % (A) 1 %; HCT 38.1 % (34.0-46.0); HGB 12.6 gm/dL (11.4-16.0); Lymphocytes # (A) 2.4 k/uL (1.0-4.8); Lymphocytes % (A) 33 %; MCH 30.1 pg (25.0-35.0); MCHC 32.9 g/dL (31.0-37.0); MCV 91.3 fL (80.0-100.0); Mean Platelet Volume 8.1; Monocytes # (A) 0.5 k/uL (0-1.0); Monocytes % (A) 7 %; Neutrophils # (A) 4.2 k/uL (1.3-7.7); Neutrophils % (A) 57 %; Platelet Count 182 k/uL (150-450); RBC 4.18 m/uL (3.80-5.40); WBC 7.3 k/uL (3.8-10.6)
[2024-06-18 14:24] LABS: ALT 29 U/L (4-34); African American GFR (CKD) >90 (>60 ml/min/1.73 sqM); Albumin 3.9 g/dL (3.5-5.0); Anion Gap 4 mmol/L; Blood Urea Nitrogen 12 mg/dL (7-17); Calcium 9.4 mg/dL (8.4-10.2); Carbon Dioxide 26 mmol/L (22-30); Chloride 107 mmol/L (98-107); Glucose 100 mg/dL (74-99); Non-African American GFR(CKD) 85 (>60 ml/min/1.73 sqM); Sodium 137 mmol/L (137-145); Total Bilirubin 0.8 mg/dL (0.2-1.3); Total Protein 6.7 g/dL (6.3-8.2)
[2024-06-18 14:26] LABS: Partial Thromboplastin Time 23.7 sec (22.0-30.0); Prothrombin Time 11.3 sec (10.0-12.5)
[2024-06-18 14:28] LABS: AST 40 U/L (14-36); Alkaline Phosphatase 62 U/L (38-126); Magnesium 1.8 mg/dL (1.6-2.3); Potassium 4.5 mmol/L (3.5-5.1)
--- NOTE | 2024-06-18 14:48 | XR ---
EXAMINATION TYPE: XR chest 2V DATE OF EXAM: 06/18/2024 COMPARISON: 03/05/2024 HISTORY: 73-year-old female with chest pain TECHNIQUE: PA and lateral views FINDINGS: Median sternotomy wires with post-CABG clips. Heart normal size. Strandy atelectasis lower lungs. Cor onary stents on the lateral view. No consolidation or pleural effusion. IMPRESSION: No acute cardiopulmonary process.
[2024-06-18] MEDS: HEPARIN SODIUM 1,000 UN/ML (10ML VL) IV ONE (16:34)
[2024-06-18] MEDS: HEPARIN SOD,PORK IN 0.45% NACL 25,000 UNIT in 0.45% NACL 1 250ML.BAG IV SCH (16:35)
[2024-06-18] MEDS: ACETAMINOPHEN TAB 325 MG TAB PO PRN (18:56)
[2024-06-19] MEDS: ASPIRIN 325 MG TAB PO SCH (08:07)
[2024-06-19] MEDS ORDERED: LORazepam 0.5 MG TAB PO PRN (08:10)
[2024-06-19] MEDS: ASPIRIN 81 MG PO SCH (08:25)
[2024-06-19] MEDS: NITROGLYCERIN OINT 1 INCH/GM PACKET TOPICAL SCH (08:28)
[2024-06-19] MEDS: METOPROLOL TARTRATE 25 MG TAB PO SCH (08:28)
[2024-06-19] MEDS: RANOLAZINE 500 MG TAB.ER.12H PO SCH (08:28)
[2024-06-19] MEDS: EZETIMIBE 10 MG TAB PO SCH (08:28)
[2024-06-19] MEDS: amLODIPine 2.5 MG TAB PO SCH (08:28)
[2024-06-19] MEDS: LOSARTAN 25 MG TAB PO SCH (08:28)
[2024-06-19] MEDS ORDERED: RANOLAZINE 500 MG TAB.ER.12H PO SCH (09:00)
[2024-06-19] MEDS: ACETAMINOPHEN IV (For NPO) 1,000 MG in EMPTY BAG 1 BAG IVPB STA (11:11)
--- NOTE | 2024-06-19 12:39 | P.CRDCN ---
History of Present Illness Consult date: 06/19/24 Reason for Consult (text): ACS History of present illness: This is a 73-year-old female patient of Dr. VARGAS Maki with past medical history of coronary artery disease status post bypass grafting, hypertension, hyperlipidemia, remote history of tobacco use and dependence. Patient had a recent hospitalization in February of this year at which time she was diagnosed with [place]. She was sent to [facility] for PCI and subsequently developed pseudoaneur ysm. She had 2 Dopplers that revealed thrombosed pseudoaneurysm. She has had follow-up with vascular surgery for this. Patient states that she developed chest pain that felt very similar to her heart attack in February. She states in general she was not feeling well for the past 2 to 3 days with indigestion and heartburn. She was taking GERD medication with omeprazole and gas pills but does not seem to be helping. She had an appointment with Dr. Sr at [facility] yesterday and when she was getting ready she felt significantly worse and more discomfort in her chest decided to come into the hospital for evaluation. She has been started on a heparin drip and nitroglycerin drip. Blood pressure 145 /73, heart rate 100, pulse ox 97% on room air. EKG: Sinus bradycardia with noted chronic ST changes when compared to previous EKG Chest x-ray: No acute process. Laboratory studies: Troponin negative x 3, BUN 12, creatinine 0.71, potassium 4.5. Hemoglobin 12.6, WBC 7.3. Home cardiac medications: Amlodipine 2.5 mg daily, aspirin 81 mg daily, Plavix 75 mg daily, Zetia 10 mg daily, losartan 25 mg daily, Lopressor 25 mg twice daily, Nitrostat as needed, Ranexa 500 mg twice daily, Crestor 10 mg at bedtime. Cardiac catheterization performed by Dr. VARGAS Maki on 03/05/2024 revealed slightly elevated filling pressures, no gradient, no significant lesion in the ostium and proximal RCA which was not grafted, heavily calcified. Left system is totally occluded. Vein graft to the obtuse marginal and diagonal are patent. FOOTE was not injected. Patient was then transferred to [facility] for PTCA of the proximal LAD. Echocardiogram performed 03/06/2024 revealed EF 60%, no regional wall motion abnormalities, RVSP 29. CV surgery four-vessel CABG performed in 2004: FOOTE to LAD, VG to diagonal 1, VG to OM1, VG to PDA. Review Of Systems: At the time of my exam: CONSTITUTIONAL: Denies fever or chills. Generalized fatigue. HEENT: Denies blurred vision, vision changes, or eye pain. Denies hemoptysis CARDIOVASCULAR: Reports chest pain. Denies orthopnea. Denies PND. Denies palpitations RESPIRATORY: Denies shortness of breath. GASTROINTESTINAL: Denies abdominal pain. Denies nausea or vomiting. Reports GERD. HEMATOLOGIC: Denies bleeding disorders. GENITOURINARY: Denies any blood in urine. SKIN: Denies puritis. Denies rash. Physical examination: Gen: This is a 73-year-old female in no acute distress. VS: reviewed HEENT: Head is atraumatic, normocephalic. Pupils equal, round. Sclerae is anicteric. NECK: Supple. No JVD. LUNGS: Clear to auscultation. No wheezes or rhonchi. No intercostal retractions. HEART: Regular rate and rhythm. 1/6 systolic ejection murmur at the left ster nal border. ABDOMEN: Soft No tenderness. EXTREMITIES: No pedal edema. No calf tenderness. NEUROLOGICAL: Patient is awake, alert and oriented x3. Assessment: Unstable angina History of coronary artery disease status post bypass grafting and PCI Hypertension Hyperlipidemia Remote history of tobacco use and dependence History of thrombosed pseudoaneurysm seen by vascular surgery Plan: Resume patient's home cardiac medications Increase Ranexa to 1000 mg twice daily Discontinue nitroglycerin drip and start Nitropaste 1 inch every 6 hours Continue heparin drip for another 24 hours Obtain 2-D echocardiogram and Doppler study to assess cardiac structure and function Further recommendations to follow based upon clinical course Thank you kindly for this consultation. Nurse practitioner note has been reviewed, I agree with documented findings and plan of care. Patient was seen and examined. Past Medical History Past Medical History: Asthma, Chest Pain / Angina, COPD, GERD/Reflux, Hyperlipidemia, Hypertension, Myocardial Infarction ([place]), Osteoarthritis (OA) Additional Past Medical History / Comment(s): MIGRAINE HEADACHE,GLAUCOMA, SEE DR MILLS'S HISTORY AND PHYSICAL FOR CARDIAC HISTORY, SHORTNESS OF BREATH WITH EXERTION Last Myocardial Infarction Date:: 02/21/2024 History of Any Multi-Drug Resistant Organisms: None Reported Past Surgical History: Coronary Bypass/CABG, Heart Catheterization With Stent Additional Past Surgical History / Comment(s): FRONTAL SINUS SURGERY-TUMOR OF THE BONE X3, CABG 2004 Past Anesthesia/Blood Transfusion Reactions: No Reported Reaction Additional Past Anesthesia/Blood Transfusion Reaction / Comment(s): "WOKE UP DURING SURGERY" ONCE Date of Last Stent Placement:: 2023 Past Psychological History: No Psychological Hx Reported Smoking Status: Former smoker Past Alcohol Use History: None Reported Additional Past Alcohol Use History / Comment(s): STARTED SMOKING AT AGE 17 QUIT SMOKING AT AGE 44 SMOKED 2-3PPD Past Drug Use History: None Reported - Past Family History Mother Family Medical History: No Reported History Father Family Medical History: Cancer Medications and Allergies Home Medications Medication Instructions Recorded Confirmed Type Multivit-Min/FA/Lycopen/Lutein 1 tab PO DAILY 10/07/20 06/18/24 History [Centrum Silver Tablet] Albuterol Inhaler [Ventolin Hfa 1 - 2 puff INHALATION RT-Q6H PRN 03/18/21 06/18/24 History Inhaler] Omeprazole 40 mg PO DAILY@0700 03/18/21 06/18/24 History Aspirin 81 mg PO DAILY chew 03/21/21 06/18/24 Rx Albuterol Nebulized [Ventolin 2.5 mg INHALATION RT-Q6H PRN 04/13/23 06/18/24 History Nebulized] Cyclobenzaprine [Flexeril] 10 mg PO DAILY PRN 04/13/23 06/18/24 History Acetaminophen [Tylenol Extra 500 mg PO Q6H PRN 06/18/24 06/18/24 History Strength] Clopidogrel [Plavix] 75 mg PO DAILY@1830 06/18/24 06/18/24 History Ezetimibe [Zetia] 10 mg PO DAILY 06/18/24 06/18/24 History LORazepam [Ativan] 0.5 mg PO HS PRN 06/18/24 06/18/24 History Losartan [Cozaar] 25 mg PO DAILY 06/18/24 06/18/24 History Metoprolol Tartrate [Lopressor] 25 mg PO BID 06/18/24 06/18/24 History Nitroglycerin Sl Tabs [Nitrostat] 0.4 mg SUBLINGUAL Q5M PRN 06/18/24 06/18/24 History Ranolazine [Ranexa] 500 mg PO BID 06/18/24 06/18/24 History Rosuvastatin [Crestor] 10 mg PO HS 06/18/24 06/18/24 History amLODIPine [Norvasc] 2.5 mg PO DAILY 06/18/24 06/18/24 History polyethylene glycoL 3350 [Clearlax] 1 packet PO DAILY PRN 06/18/24 06/18/24 History traMADol HCL 50 mg PO DAILY PRN 06/18/24 06/18/24 History Allergies Allergy/AdvReac Type Severity Reaction Status Date / Time azithromycin Allergy Unknown Verified 06/18/24 17:00 doxycycline Allergy Unknown Verified 06/18/24 17:00 erythromycin base Allergy Unknown Verified 06/18/24 17:00 gabapentin [From Neurontin] AdvReac Hallucinati Verified 06/18/24 16:58 ons depo Allergy Unknown Uncoded 06/18/24 17:00 Physical Exam Vitals: Vital Signs Temp Pulse Pulse Resp BP BP Pulse Ox 06/19/24 04:00 97.9 F 100 18 145/73 97 06/19/24 00:00 97.9 F 63 18 115/76 98 06/18/24 20:00 60 17 123/66 96 06/18/24 18:58 62 18 140/74 99 06/18/24 15:54 55 L 16 132/70 97 06/18/24 13:08 98.0 F 64 18 123/76 99 Intake and Output 06/18/24 06/19/24 06/19/24 22:59 06:59 14:59 Intake Total 55.613 Balance 55.613 Intake: Intake, IV Titration 55.613 Amount Heparin Sod,Pork in 0.45% 55.613 NaCl 25,000 unit In 0.45 % NaCl 1 250ml.bag @ 12 UNITS/KG/HR 8.6 mls/hr IV .Q24H [facility] Rx#:[id number] Other: Voiding Method Toilet Weight 71.668 kg Results 06/18/24 13:49 06/18/24 13:49 Cardiac Enzymes 06/18/24 06/18/24 06/18/24 Range/Units 13:49 13:49 17:16 AST 40 H (14-36) U/L Troponin I <0.012 <0.012 (0.000-0.034) ng/mL 06/18/24 Range/Units 20:39 AST (14-36) U/L Troponin I <0.012 (0.000-0.034) ng/mL Coagulation 06/18/24 06/18/24 06/19/24 Range/Units 13:49 22:25 06:29 PT 11.3 (10.0-12.5) sec APTT 23.7 99.0 H 64.2 H (22.0-30.0) sec CBC 06/18/24 Range/Units 13:49 WBC 7.3 (3.8-10.6) k/uL RBC 4.18 (3.80-5.40) m/uL Hgb 12.6 (11.4-16.0) gm/dL Hct 38.1 (34.0-46.0) % Plt Count 182 (150-450) k/uL Comprehensive Metabolic Panel 06/18/24 Range/Units 13:49 Sodium 137 (137-145) mmol/L Potassium 4.5 (3.5-5.1) mmol/L Chloride 107 (98-107) mmol/L Carbon Dioxide 26 (22-30) mmol/L BUN 12 (7-17) mg/dL Creatinine 0.71 (0.52-1.04) mg/dL Glucose 100 H (74-99) mg/dL Calcium 9.4 (8.4-10.2) mg/dL AST 40 H (14-36) U/L ALT 29 (4-34) U/L Alkaline Phosphatase 62 (38-126) U/L Total Protein 6.7 (6.3-8.2) g/dL Albumin 3.9 (3.5-5.0) g/dL Current Medications Generic Name Dose Route Start Last Admin Trade Name Freq PRN Reason Stop Dose Admin Acetaminophen 650 mg 06/18/24 17:57 06/19/24 04:42 Acetaminophen Tab 325 Mg Tab PO 650 mg Q6HR PRN Administration Fever and/ or Pain Aspirin 325 mg 06/19/24 09:00 Aspirin 325 Mg Tab PO DAILY CARRIE Nitroglycerin/Dextrose 50 mg/ 250 mls @ 1.5 mls/hr 06/18/24 13:34 06/18/24 14:01 IV Solution IV 06/19/24 13:33 5 mcg/min .Q24H ONE 1.5 mls/hr Administration Protocol 5 MCG/MIN Heparin Sodium/Sodium Chloride 250 mls @ 8.6 mls/hr 06/18/24 15:45 06/19/24 00:07 25,000 unit/ Sodium Chloride IV 9 units/kg/hr .Q24H CARRIE 6.45 mls/hr Titration Protocol 12 UNITS/KG/HR Intake and Output 06/18/24 06/19/24 06/19/24 22:59 06:59 14:59 Intake Total 55.613 Balance 55.613 Intake: Intake, IV Titration 55.613 Amount Heparin Sod,Pork in 0.45% 55.613 NaCl 25,000 unit In 0.45 % NaCl 1 250ml.bag @ 12 UNITS/KG/HR 8.6 mls/hr IV .Q24H [facility] Rx#:[id number] Other: Voiding Method Toilet Weight 71.668 kg 06/18/24 13:49 06/18/24 13:49
[2024-06-19] MEDS ORDERED: polyethylene glycoL 3350 17 GM POWD.PACK PO PRN (16:56)
[2024-06-19] MEDS ORDERED: IPRATROPIUM-ALBUTEROL 3 ML NEB INHALATION PRN (16:58)
--- NOTE | 2024-06-19 17:06 | P.HPIM ---
History of Present Illness H&P Date: 06/19/24 Chief Complaint: Angina This is a 73-year-old female with past medical history significant for CAD, CABG, recent inferior STEMI 03/15-transferred to [facility] for PCI and developed pseudoaneurysm, hypertension, hyperlipidemia, prior nicotine dependence developed midsternal chest pain radiating to left arm and up to bilateral jaws, similar to prior heart attack in February. Reports over the last couple days experienced heartburn, indigestion unrelieved by her PPI; a week ago had nausea and vomiting. Maintained on heparin and nitroglycerin drips. Complains of headache. Afebrile, pulse 58, respiratory rate 16, blood pressure 103/51, maintaining O2 sats of 97% on room air. EKG reporting sinus bradycardia with ST and T wave changes. Troponins negative x 3. Chest x-ray reported no acute cardiopulmonary process. Hematology, chemistry panels unremarkable with the exception of mildly elevated AST. INR 1. Echo of 03/06/2024 reported EF 60%, RVSP 29. Past Medical History Past Medical History: Asthma, Chest Pain / Angina, COPD, GERD/Reflux, Hyperlipidemia, Hypertension, Myocardial Infarction (IL), Osteoarthritis (OA) Additional Past Medical History / Comment(s): MIGRAINE HEADACHE,GLAUCOMA, SEE DR MILLS'S HISTORY AND PHYSICAL FOR CARDIAC HISTORY, SHORTNESS OF BREATH WITH EXERTION Last Myocardial Infarction Date:: 02/21/2024 History of Any Multi-Drug Resistant Organisms: None Reported Past Surgical History: Coronary Bypass/CABG, Heart Catheterization With Stent Additional Past Surgical History / Comment(s): FRONTAL SINUS SURGERY-TUMOR OF THE BONE X3, CABG 2005 Past Anesthesia/Blood Transfusion Reactions: No Reported Reaction Additional Past Anesthesia/Blood Transfusion Reaction / Comment(s): "WOKE UP DURING SURGERY" ONCE Date of Last Stent Placement:: 2023 Past Psychological History: No Psychological Hx Reported Smoking Status: Former smoker Past Alcohol Use History: None Reported Additional Past Alcohol Use History / Comment(s): STARTED SMOKING AT AGE 17 QUIT SMOKING AT AGE 44 SMOKED 2-3PPD Past Drug Use History: None Reported - Past Family History Mother Family Medical History: No Reported History Father Family Medical History: Cancer Medications and Allergies Home Medications Medication Instructions Recorded Confirmed Type Multivit-Min/FA/Lycopen/Lutein 1 tab PO DAILY 10/07/20 06/18/24 History [Centrum Silver Tablet] Albuterol Inhaler [Ventolin Hfa 1 - 2 puff INHALATION RT-Q6H PRN 03/18/21 06/18/24 History Inhaler] Omeprazole 40 mg PO DAILY@0700 03/18/21 06/18/24 History Aspirin 81 mg PO DAILY chew 03/21/21 06/18/24 Rx Albuterol Nebulized [Ventolin 2.5 mg INHALATION RT-Q6H PRN 04/13/23 06/18/24 History Nebulized] Cyclobenzaprine [Flexeril] 10 mg PO DAILY PRN 04/13/23 06/18/24 History Acetaminophen [Tylenol Extra 500 mg PO Q6H PRN 06/18/24 06/18/24 History Strength] Clopidogrel [Plavix] 75 mg PO DAILY@1830 06/18/24 06/18/24 History Ezetimibe [Zetia] 10 mg PO DAILY 06/18/24 06/18/24 History LORazepam [Ativan] 0.5 mg PO HS PRN 06/18/24 06/18/24 History Losartan [Cozaar] 25 mg PO DAILY 06/18/24 06/18/24 History Metoprolol Tartrate [Lopressor] 25 mg PO BID 06/18/24 06/18/24 History Nitroglycerin Sl Tabs [Nitrostat] 0.4 mg SUBLINGUAL Q5M PRN 06/18/24 06/18/24 History Ranolazine [Ranexa] 500 mg PO BID 06/18/24 06/18/24 History Rosuvastatin [Crestor] 10 mg PO HS 06/18/24 06/18/24 History amLODIPine [Norvasc] 2.5 mg PO DAILY 06/18/24 06/18/24 History polyethylene glycoL 3350 [Clearlax] 1 packet PO DAILY PRN 06/18/24 06/18/24 History traMADol HCL 50 mg PO DAILY PRN 06/18/24 06/18/24 History Allergies Allergy/AdvReac Type Severity Reaction Status Date / Time azithromycin Allergy Unknown Verified 06/18/24 17:00 doxycycline Allergy Unknown Verified 06/18/24 17:00 erythromycin base Allergy Unknown Verified 06/18/24 17:00 gabapentin [From Neurontin] AdvReac Hallucinati Verified 06/18/24 16:58 ons depo Allergy Unknown Uncoded 06/18/24 17:00 Physical Exam Vitals: Vital Signs Temp Pulse Pulse Resp BP BP Pulse Ox 06/19/24 12:06 98.0 F 58 L 16 103/51 97 06/19/24 08:08 80 18 136/87 100 06/19/24 04:00 97.9 F 100 18 145/73 97 06/19/24 00:00 97.9 F 63 18 115/76 98 06/18/24 20:00 60 17 123/66 96 06/18/24 18:58 62 18 140/74 99 Intake and Output 06/19/24 06/19/24 06/19/24 06:59 14:59 22:59 Intake Total 55.613 Balance 55.613 Intake: Intake, IV Titration 55.613 Amount Heparin Sod,Pork in 0.45% 55.613 NaCl 25,000 unit In 0.45 % NaCl 1 250ml.bag @ 12 UNITS/KG/HR 8.6 mls/hr IV .Q24H [facility] Rx#:[id number] Other: Voiding Method Toilet PHYSICAL EXAM: VITAL SIGNS: [As above] GENERAL: Alert and orient x 3, sitting up in bed, no acute distress HEENT: Normocephalic, atraumatic conjunctivae normal. eyes normal. NECK: Supple, no JVD. No thyroid enlargement. No LNs CARDIOVASCULAR: S1, S2 regular. Systolic murmur. RESPIRATION: Unlabored, equal air entry ,breath sounds diminished in the bases. No rhonchi or crackles. No bronchial breathing. ABDOMEN: Soft, nontender . No guarding. no masses palpable. No ascites, No hepatosplenomegaly.Bowel sounds heard. LEGS: No edema. no swelling NERVOUS SYSTEM: Cranial N 2-12 grossly normal.No focal deficits.Strength and sensation grossly intact.. Skin: Warm and dry, no rash Results CBC & Chem 7: 06/18/24 13:49 06/18/24 13:49 Labs: Abnormal Lab Results - Last 24 Hours (Table) 06/18/24 06/19/24 Range/Units 22:25 06:29 APTT 99.0 H 64.2 H (22.0-30.0) sec Thrombosis Risk Factor Assmnt - Choose All That Apply Any of the Below Risk Factors Present?: Yes Each Factor Represents 1 point: Abnormal pulmonary function (COPD) Other Risk Factors: Yes Each Risk Factor Represents 2 Points: Age 61-74 years Thrombosis Risk Factor Assessment Total Risk Factor Score: 3 Thrombosis Risk Factor Assessment Level: Moderate Risk Assessment and Plan Assessment: Unstable angina CAD, history of CABG,recent inferior STEMI 03/15-transferred to [facility] for PCI and developed thrombosed pseudoaneurysm-follows with vascular surgery. Hypertension Hyperlipidemia Former nicotine dependence Plan: Continue on current medication resume ,monitoring and symptomatic treatment. Repeat troponins ordered .2D echo pending. nitroglycerin drip trans ition and Nitropaste. IV Tylenol, Ultram ordered for headache/pain. Anticoagulated on heparin drip, further recommendations per cardiology. The impression and plan of care has been dictated as directed. : I performed a history and examination of this patient, discussed the same with the dictator. I agree with the dictator's note ,documented as a scribe. Any additional findings or plans will be noted.
[2024-06-19] MEDS: CLOPIDOGREL 75 MG TAB PO SCH (18:38)
[2024-06-19] MEDS: IPRATROPIUM-ALBUTEROL 3 ML NEB INHALATION SCH (19:12)
[2024-06-19] MEDS: ATORVASTATIN 20 MG TAB PO SCH (20:27)
[2024-06-19] MEDS: traMADol 50 MG TAB PO PRN (20:27)
[2024-06-20] MEDS: PANTOPRAZOLE 40 MG TABLET PO SCH (06:19)
[2024-06-20 08:17] VITALS: BP 105/61; PULSE 58; RESP 16; TEMP 97.9
[2024-06-20 09:09] LABS: Chol/HDL Ratio 3.37 Ratio; LDL Cholesterol,Calculated 61.6 mg/dL (0.0-131.0)
--- NOTE | 2024-06-20 11:10 | P.PN ---
Subjective Progress Note Date: 06/20/24 Reason for Consult (text): ACS History of present illness: This is a 73-year-old female patient of Dr. VARGAS Maki with past medical history of coronary artery disease status post bypass grafting, hypertension, hyperlipidemia, remote history of tobacco use and dependence. Patient had a recent hospitalization in February of this year at which time she was diagnosed with AL. She was sent to [facility] for PCI and subsequently developed pseudoaneurysm. She had 2 Dopplers that revealed thrombosed pseudoaneurysm. She has had follow-up with vascular surgery for this. Patient states that she developed chest pain that felt very similar to her heart attack in February. She states in general she was not feeling well for the past 2 to 3 days with indigestion and heartburn. She was taking GERD medication with omeprazole and gas pills but does not seem to be helping. She had an appointment with Dr. Sr at [facility] yesterday and when she was getting ready she felt significantly worse and more discomfort in her chest decided to come into the hospital for evaluation. She has been started on a heparin drip and nitroglycerin drip. Blood pressure 145/73, heart rate 100, pulse ox 97% on room air. EKG: Sinus bradycardia with noted chronic ST changes when compared to previous EKG Chest x-ray: No acute process. Laboratory studies: Troponin negative x 3, BUN 12, creatinine 0.71, potassium 4.5. Hemoglobin 12.6, WBC 7.3. Home cardiac medications: Amlodipine 2.5 mg daily, aspirin 81 mg daily, Plavix 75 mg daily, Zetia 10 mg daily, losartan 25 mg daily, Lopressor 25 mg twice daily, Nitrostat as needed, Ranexa 500 mg twice daily, Crestor 10 mg at bedtime. Cardiac catheterization performed by Dr. VARGAS Maki on 03/05/2024 revealed slightly elevated filling pressures, no gradient, no significant lesion in the ostium and proximal RCA which was not grafted, heavily calcified. Left system is totally occluded. Vein graft to the obtuse marginal and diagonal are patent. FOOTE was not injected. Patient was then transferred to [facility] for PTCA of t he proximal LAD. Echocardiogram performed 03/06/2024 revealed EF 60%, no regional wall motion abnormalities, RVSP 29. CV surgery four-vessel CABG performed in 2004: FOOTE to LAD, VG to diagonal 1, VG to OM1, VG to PDA. 06/20 Patient is seen today in follow-up. Yesterday, Ranexa was increased to 1000 mg twice daily. Note that troponins were negative x 5 and patient had no EKG changes that were of concern. Blood pressure 105/61, heart rate 58, pulse ox 100% on room air. Patient is complaining of GERD symptoms and requesting that she be discharged home on Protonix versus omeprazole which will be related to her PCP. Physical examination: Gen: This is a 73-year-old female in no acute distress. VS: reviewed HEENT: Head is atraumatic, normocephalic. Pupils equal, round. Sclerae is anicteric. NECK: Supple. No JVD. LUNGS: Clear to auscultation. No wheezes or rhonchi. No intercostal retracti ons. HEART: Regular rate and rhythm. 1/6 systolic ejection murmur at the left sternal border. ABDOMEN: Soft No tenderness. EXTREMITIES: No pedal edema. No calf tenderness. NEUROLOGICAL: Patient is awake, alert and oriented x3. Assessment: Chest pain most likely secondary to GERD, not completely ruled out unstable angina History of coronary artery disease status post bypass grafting and PCI Hypertension Hyperlipidemia Remote history of tobacco use and dependence History of thrombosed pseudoaneurysm seen by vascular surgery Plan: Continue patient's home cardiac medications Continue Ranexa to 1000 mg twice daily Discontinue Nitropaste and discontinue heparin Patient is cleared for discharge from cardiology May follow-up with Dr. Maki in the office in 1 week Nurse practitioner note has been reviewed, I agree with documented findings and plan of care. Patient was seen and examined. Objective - Vital Signs Vital signs: Vital Signs Temp 98 F 06/19/24 20:00 Pulse 82 06/20/24 07:56 Resp 18 06/19/24 20:00 BP 123/68 06/19/24 20:00 Pulse Ox 97 06/19/24 20:00 FiO2 Intake & Output 06/19/24 06/20/24 06/20/24 18:59 06:59 18:59 Intake Total 118 184.9 16.77 Balance 118 184.9 16.77 Intake: Intake, IV Titration 184.9 16.77 Amount Heparin Sod,Pork in 0.45% 184.9 16.77 NaCl 25,000 unit In 0.45 % NaCl 1 250ml.bag @ 12 UNITS/KG/HR 8.6 mls/hr IV .Q24H [facility] Rx#:[id number] Oral 118 Other: Voiding Method Toilet Toilet - Labs CBC & Chem 7: 06/18/24 13:49 06/18/24 13:49 Labs: Abnormal Lab Results - Last 24 Hours (Table) 06/20/24 Range/Units 05:59 APTT 62.1 H (22.0-30.0) sec
--- NOTE | 2024-06-20 11:45 | P.DS ---
Providers Date of admission: 06/18/24 15:36 Expected date of discharge: 06/20/24 Attending physician: Mo Campa Consults: 06/18/24 15:34 Consult Physician Urgent Consulting Provider: Vladislav Sanon Consult Reason/Comments: acs Do you want consulting provider notified?: Yes Primary care physician: [facility] Course: Final diagnoses Unstable angina Gastroesophageal reflux disease CAD, history of CABG,recent inferior STEMI 03/15-transferred to [facility] for PCI and developed thrombosed pseudoaneurysm-follows with vascular surgery. Hypertension Hyperlipidemia Former nicotine dependence Hospital course:This is a 73-year-old female with past medical history significant for CAD, CABG, recent inferior STEMI 03/15-transferred to [facility] for PCI and developed pseudoaneurysm, hypertension, hyperlipidemia, prior nicotine dependence developed midsternal chest pain radiating to left arm and up to bilateral jaws, similar to prior heart attack in February. Reports over the last couple days experienced heartburn, indigestion unrelieved by her PPI; a week ago had nausea and vomiting. Maintained on heparin and nitroglycerin drips. Complains of headache. Afebrile, pulse 58, respiratory rate 16, blood pressure 103/51, maintaining O2 sats of 97% on room air. EKG reporting sinus bradycardia with ST and T wave changes. Troponins negative x 3. Chest x-ray reported no acute cardiopulmonary process. Hematology, chemistry panels unremarkable with the exception of mildly elevated AST. INR 1. Echo of 03/06/2024 reported EF 60%, RVSP 29. Troponins negative x 5, Ranexa increased by cardiology. Denies chest pain, palpitations or shortness of breath. Complaining of reflux, requesting increase in Protonix. Cleared by cardiology for discharge. Patient will be discharged home today in a stable condition with guarded prognosis. At discharge she will flip patient to Protonix, increase to twice daily for a week and then decrease to daily, as per PCP outpatient. The impression and plan of care has been dictated as directed. : I performed a history and examination of this patient, discussed the same with the dictator. I agree with the dictator's note ,documented as a scribe. Any additional findings or plans will be noted. Patient Condition at Discharge: Stable Plan - Discharge Summary New Discharge Prescriptions: New Ranolazine [Ranexa] 1,000 mg PO BID #120 tab Pantoprazole Sodium [Protonix] 40 mg PO BID #60 tab Continue Multivit-Min/FA/Lycopen/Lutein [Centrum Silver Tablet] 1 tab PO DAILY Albuterol Inhaler [Ventolin Hfa Inhaler] 1 - 2 puff INHALATION RT-Q6H PRN PRN Reason: Shortness Of Breath Aspirin 81 mg PO DAILY chew LORazepam [Ativan] 0.5 mg PO HS PRN PRN Reason: Anxiety Ezetimibe [Zetia] 10 mg PO DAILY amLODIPine [Norvasc] 2.5 mg PO DAILY Metoprolol Tartrate [Lopressor] 25 mg PO BID Clopidogrel [Plavix] 75 mg PO DAILY@183 Losartan [Cozaar] 25 mg PO DAILY Acetaminophen [Tylenol Extra Strength] 500 mg PO Q6H PRN PRN Reason: Fever And/ Or Pain Cyclobenzaprine [Flexeril] 10 mg PO DAILY PRN PRN Reason: muscle spasms Albuterol Nebulized [Ventolin Nebulized] 2.5 mg INHALATION RT-Q6H PRN PRN Reason: Wheezing polyethylene glycoL 3350 [Clearlax] 1 packet PO DAILY PRN PRN Reason: Constipation traMADol HCL 50 mg PO DAILY PRN PRN Reason: Pain Rosuvastatin [Crestor] 10 mg PO HS Nitroglycerin Sl Tabs [Nitrostat] 0.4 mg SUBLINGUAL Q5M PRN PRN Reason: Chest Pain Discontinued Omeprazole 40 mg PO DAILY@0700 Ranolazine [Ranexa] 500 mg PO BID Discharge Medication List Multivit-Min/FA/Lycopen/Lutein [Centrum Silver Tablet] 1 tab PO DAILY 10/07/20 [History] Albuterol Inhaler [Ventolin Hfa Inhaler] 1 - 2 puff INHALATION RT-Q6H PRN 03/18/21 [History] Aspirin 81 mg PO DAILY chew 03/21/21 [Rx] Albuterol Nebulized [Ventolin Nebulized] 2.5 mg INHALATION RT-Q6H PRN 04/13/23 [History] Cyclobenzaprine [Flexeril] 10 mg PO DAILY PRN 04/13/23 [History] Acetaminophen [Tylenol Extra Strength] 500 mg PO Q6H PRN 06/18/24 [History] Clopidogrel [Plavix] 75 mg PO DAILY@183 06/18/24 [History] Ezetimibe [Zetia] 10 mg PO DAILY 06/18/24 [History] LORazepam [Ativan] 0.5 mg PO HS PRN 06/18/24 [History] Losartan [Cozaar] 25 mg PO DAILY 06/18/24 [History] Metoprolol Tartrate [Lopressor] 25 mg PO BID 06/18/24 [History] Nitroglycerin Sl Tabs [Nitrostat] 0.4 mg SUBLINGUAL Q5M PRN 06/18/24 [History] Rosuvastatin [Crestor] 10 mg PO HS 06/18/24 [History] amLODIPine [Norvasc] 2.5 mg PO DAILY 06/18/24 [History] polyethylene glycoL 3350 [Clearlax] 1 packet PO DAILY PRN 06/18/24 [History] traMADol HCL 50 mg PO DAILY PRN 06/18/24 [History] Pantoprazole Sodium [Protonix] 40 mg PO BID #60 tab 06/20/24 [Rx] Ranolazine [Ranexa] 1,000 mg PO BID #120 tab 06/20/24 [Rx] Follow up Appointment(s)/Referral(s): Aureliano Maki MD [STAFF PHYSICIAN] - 1 Week Yann Sena Jr, DO [Primary Care Provider] - 1-2 days Discharge Disposition: HOME SELF-CARE
== END 2024-06-20 11:25 | disposition home or self-care (01) | DRG 303 ==
LOC: EC 13:07 → 3SCARD 15:36
PROVIDERS: ADMIT Family Medicine; ATTEND Family Medicine
DX: I25.110 Atherosclerotic heart disease of native coronary artery with unstable angina pectoris (principal); I25.2 Old myocardial infarction; I10 Essential (primary) hypertension; E78.5 Hyperlipidemia, unspecified; K21.9 Gastro-esophageal reflux disease without esophagitis; J44.9 Chronic obstructive pulmonary disease, unspecified; M19.90 Unspecified osteoarthritis, unspecified site; H40.9 Unspecified glaucoma; G43.909 Migraine, unspecified, not intractable, without status migrainosus; Z79.02 Long term (current) use of antithrombotics/antiplatelets; Z79.82 Long term (current) use of aspirin; Z79.899 Other long term (current) drug therapy; Z87.891 Personal history of nicotine dependence; Z95.1 Presence of aortocoronary bypass graft; Z95.5 Presence of coronary angioplasty implant and graft; Z88.1 Allergy status to other antibiotic agents; Z88.8 Allergy status to other drugs, medicaments and biological substances
CPT/HCPCS: 96365; 96366; 96367; 96368; 99291

== ENCOUNTER → 2024-07-19 | Outpatient (CLI) | payer MEDICARE ==
--- NOTE | 2024-07-19 18:18 | BD ---
EXAMINATION TYPE: Axial Bone Density DATE OF EXAM: 07/19/2024 CLINICAL HISTORY: 74 years old Female. ICD-10 CODE: Z78.0 ASYMPTOMATIC MENOPAUSAL STATE Height: 62 Weight: 162.2 FRAX RISK QUESTIONS: Alcohol (3 or more units per day): no Family History (Parent hip fracture): no Glucocorticoids (More than 3mos): no (Ex: prednisone, prednisolone, methylprednisolone, dexamethasone, and hydrocortisone). History of Fracture in Adulthood: no Secondary Osteoporosis: 1. Type 1 Diabetes: no 2. Hyperthyroidism: no 3. Menopause before 45: no 4. Malnutrition: no 5. Chronic liver disease: no Rheumatoid Arthritis: no Current Tobacco Use: no RISK FACTORS HISTORY OF: Hip Fracture (Right/Left): no Spine Fracture: no History of Wrist Fracture: no Surgery to Spine/Hip(right/left)/Wrist (right/left): no MEDICATIONS: Thyroid Medications: no Osteoporosis Medications: no EXAM MEASUREMENTS: Bone mineral densitometry was performed using the Street[employer] System. Bone mineral density as measured about the Lumbar spine is: ----- L1-L4(G/cm2): 1.136 T Score Values are as follows: ----- L1: -1.7 ----- L2: -0.9 ----- L3: 0.3 ----- L4: 0.8 ----- L1-L4: -0.4 Z Score Values are as follows: ----- L1: -0.3 ----- L2: 0.6 ----- L3: 1.7 ----- L4: 2.3 ----- L1-L4: 1.1 Baseline Study Bone mineral density about the R hip (g/cm2): 0.834 Bone mineral density about the L hip (g/cm2): 0.847 T Score values are as follows: -----R Neck: -1.8 -----L Neck: -1.5 -----R Total: -1.4 -----L Total: -1.3 Z Score values are as follows: -----R Neck: -0.1 -----L Neck: 0.3 -----R Total: 0.2 -----L Total: 0.3 Baseline Study FRAX%s: The graph provided illustrates a 12.2% chance for a major osteoporotic fx and a 2.9% chance f or the hips probability for fx in 10 years time. IMPRESSION: Osteopenia (T Score between -2.5 and -1). There is slightly increased risk of fracture and the patient may be considered for treatment. Re-Screen 2-5 years. NOTE: T-SCORE=SD OF THE YOUNG ADULT MEAN. [facility], , 07/19/2024 6:16 PM
== END | disposition home or self-care (01) ==
LOC: RADBDWWP 15:22
PROVIDERS: ATTEND Family Medicine
DX: Z78.0 Asymptomatic menopausal state
CPT/HCPCS: 77080

== ENCOUNTER → 2024-07-19 | Outpatient (CLI) | payer MEDICARE ==
--- NOTE | 2024-07-21 07:49 | MM ---
Reason for Exam: Screening (asymptomatic). Last mammogram was performed 1 year(s) and 8 month(s) ago. Patient History: Menarche at age 11. First Full-Term at age 20. Hysterectomy at age 41. Postmenopausal. Estrogen for 1 year, 6 months. Paternal grandmother had breast cancer. Risk Values: Yamilex 5 year model risk: 1.6%. NCI Lifetime model risk: 3.4%. Prior Study Comparison: 12/04/1987 Screening Mammogram, Unknown. 01/21/2003 Bilateral Screening Mammogram, [facility]. 11/10/2022 Bilateral MG 3D screening mammo w/cad, [facility]. Tissue Density: The breasts are heterogeneously dense, which may obscure small masses. Findings: Analyzed By CAD. The pattern is symmetrical. Benign vascular calcifications present bilaterally. No significant interval change is evident. No suspicious groups of microcalcifications, spiculated or lobular masses, architectural distortion or other secondary signs of malignancy are mammographically apparent. Overall Assessment: Benign, BI-RAD 2 Management: Screening Mammogram of both breasts in 1 year. A negative mammogram report should not preclude additional follow up of suspicious palpable abnormalities. Patient should continue monthly self breast exam. A clinical breast exam by your physician is recommended on an annual basis and results should be correlated with mammographic findings. Note on Yamilex scores and lifetime risk: 1. A Yamilex score greater than 3% is considered moderate risk. If this is the case, consider specialist referral to assess eligibility for a risk reducing agent. 2. If overall lifetime risk for the development of breast cancer is 20% or higher, the patient may qualify for future screening with alternating mammogram and breast MRI. [facility], , 07/21/2024 7:46 AM. Electronically signed and approved by: Socrates Huerta D.O. Radiologis
== END | disposition home or self-care (01) ==
LOC: RADMAMWWP 15:21
PROVIDERS: ATTEND Family Medicine
CPT/HCPCS: 77063; 77067

== ENCOUNTER → 2024-08-13 | Outpatient (CLI) | payer MEDICARE ==
--- NOTE | 2024-08-13 18:20 | US ---
EXAMINATION TYPE: US carotid duplex BILAT DATE OF EXAM: 08/13/2024 COMPARISON: Carotid ultrasound 02/24/2023 CLINICAL INDICATION: Female, 74 years old with history of R09.89 KIARA CAROTID BRUITS; TECHNIQUE: Grayscale, color Doppler and spectral Doppler evaluation of the bilateral carotid systems and vertebral arteries. Indirect Doppler criteria was utilized. FINDINGS: EXAM MEASUREMENTS: RIGHT: Peak Systolic Velocity (PSV) cm/sec ----- Right CCA: 80.9 ----- Right ICA: 101.3 ----- Right ECA: 64.7 ICA/CCA ratio: 1.3 RIGHT: End Diastole cm/sec ----- Right CCA: 19.3 ----- Right ICA: 37.2 ----- Right ECA: 0.0 LEFT: Peak Systolic Velocity (PSV) cm/sec ----- Left CCA: 61.1 ----- Left ICA: 71.3 ----- Left ECA: 66.8 ICA/CCA ratio: 1.2 LEFT: End Diastole cm/sec ----- Left CCA: 13.8 ----- Left ICA: 23.2 ----- Left ECA: 0.0 VERTEBRALS (direction of flow): Right Vertebral: Antegrade Left Vertebral: Antegrade Rhythm: Normal IMPRESSION: No ultrasound evidence for hemodynamically significant stenosis of the bilateral visualized carotid a rterial systems. Criteria for Assigning % of Stenosis / Diameter reduction (Estimation based on the indirect measurements of the internal carotid artery velocities (ICA PSV). 1. Normal (no stenosis)=ICA PSV < 125 cm/s: ratio < 2.0: ICA EDV<40 cm/s. 2. Less than 50% stenosis=ICA PSV < 125 cm/s: ratio < 2.0: ICA EDV<40 cm/s. 3. 50 to 69% stenosis=ICA PSV of 125 to 230 cm/s: ration 2.0 ? 4.0: ICA EDV 40-100 cm/s. 4. Greater than 70% stenosis to near occlusion= ICA PSV > 230 cm/s: ratio > 4.0: ICA EDV > 100 cm/s. 5. Near occlusion= ICA PSV velocities may be low or undetectable: variable ratio and ICA EDV. 6. Total occlusion=unable to detect flow. [facility], , 08/13/2024 6:18 PM
== END | disposition home or self-care (01) ==
LOC: RADUSWWP 12:44
PROVIDERS: ATTEND Internal Medicine Cardiovascular Disease
DX: R09.89 Other specified symptoms and signs involving the circulatory and respiratory systems (principal)
CPT/HCPCS: 93880

== ENCOUNTER → 2024-09-30 | Outpatient (CLI) | payer MEDICARE ==
[2024-10-01 05:53] LABS: Alternaria alternata IgE 0.11 kU/L; Aspergillus fumagatus IgE <0.10 kU/L; Cat Epith & Dander IgE <0.10 kU/L; Cockroach IgE <0.10 kU/L; Dog Dander IgE <0.10 kU/L; Elm IgE <0.10 kU/L; Maple (Box Elder) IgE <0.10 kU/L; Oak IgE <0.10 kU/L; Ragweed,Common IgE <0.10 kU/L; Red Top (Bentgrass) IgE <0.10 kU/L
[2024-10-01 05:54] LABS: Dermato. farinae IgE <0.10 kU/L
[2024-10-01 05:56] LABS: Birch IgE <0.10 kU/L; Cladosporian herbarum IgE <0.10 kU/L
== END | disposition home or self-care (01) ==
LOC: LABWHC1 14:28
PROVIDERS: ATTEND Internal Medicine Critical Care Medicine
DX: J44.89 Other specified chronic obstructive pulmonary disease (principal)
CPT/HCPCS: 36415; 82785; 85008; 86003

== ENCOUNTER → 2024-10-31 | Outpatient (CLI) | payer MEDICARE ==
--- NOTE | 2024-10-31 12:20 | XR ---
EXAMINATION TYPE: XR chest 2V DATE OF EXAM: 10/31/2024 12:16 PM COMPARISON: Chest x-ray June 18, 2024 CLINICAL INDICATION: Female, 74 years old with history of R05.9 cough, TECHNIQUE: Frontal and lateral views of the chest are obtained. FINDINGS: Overlying bra strap is redemonstrated. Overlying sternal wires and mediastinal clips are ag ain seen. There is no focal air space opacity, pleural effusion, or pneumothorax seen. The cardiac s ilhouette size is stable and upper limits of normal. The osseous structures are demineralized. IMPRESSION: No acute pulmonary process. [facility], , 10/31/2024 12:18 PM
== END | disposition home or self-care (01) ==
LOC: RADXRMAIN 11:44
PROVIDERS: ATTEND Family Medicine
DX: R05.9 Cough, unspecified (principal)
CPT/HCPCS: 71046